=== PATIENT | female | born 1935 | race Caucasian/White ===

== ENCOUNTER 2016-12-01 14:11 | Inpatient (IN) | payer MEDICARE, MEDICAID ==
[~2016-12-01] VITALS: Ht 142.2 cm; Wt 44.5 kg
[~2016-12-01 14:11] MED LIST: /PANT40TA OR; /PROM25SU RE; /TIOT18INH INH; ACET65TA OR; ACIDTAB16 PO; ALB2.5NEB INH; ALBU17IN INH; ALBU83IN INH; ALBUTEROL INH; ALTA5CAP OR; AMLO5TAB2 PO; ANUSHCSU PR; ASPI325T OR; ATRO1OPD PO; AUGM875T27 PO; BACITAB PO; BACITAB3 PO; BACL10TA2 OR; CALC1TAB30 PO; CEPH500T PO; CIPR250T2 PO; COLA100C2 OR; COLA100C3 PO; COLA50CA3 PO; DOXY10CA PO; DOXY150C PO; DRY EYE DROPS OU; FERR140T PO; FERR32TA PO; FLAG500T OR; FLUC10TA PO; FLUO10CA8 PO; FURO20TA2 PO; GLUC500T OR; HYDR10TAB PO; HYDR1OI TOP; INCR1INH INH; IPRASOL4 INH; ISOS30TA4 PO; LASI20TA PO; LASI40TA OR; LEVA500T OR; LEVO25TA2 OR; LEVO25TA34 PO; LEVO25TA5 PO; LEVO25TABR OR; LIDO5TD TD; LIPI10TA OR; LISI-542 PO; LORA1TAB12 PO; LOTEMAX EYE OU; MAGN500T2 OR; MILKSUS OR; MILKSUS PO; MORP1SOL PO; MULTIVIT PO; NORV5TAB OR; NORV5TAB PO; OXYB5TA PO; POTA10CA PO; POTA1TAB14 PO; POTA20TA2 OR; PRED10PA PO; PRED10TA PO; PRED5TA PO; PROA1AER INH; RESTASIS EYE DROPS OU; SENO8.6T10 PO; SENO8.6T9 PO; SPIR1CAP INH; SPIR25TA2 PO; SYMB80INH INH; TORS20TA2 PO; TRAM50TA2 PO; TYLE1TAB5 PO; TYLE325T5 PO; TYLE500T78 PO; ULTR50TA PO; VANC12CA OR; VANC12CA PO; VANC750I IV; VIBR100C PO; VITA200016 PO; VITA250L PO; VITA50003 PO; VITA500046 PO; VITA500C24 PO; VITA500T3 PO; VITMTA PO; [UNRECOGNIZED DRUG - OTHER] TOP; lexapro
[2016-12-01] MEDS ORDERED: LEXA5SOL PO (14:32)
[2016-12-01] MEDS ORDERED: LEVO25TA5 PO (14:32)
[2016-12-01] MEDS ORDERED: TRAZ50TA4 PO (14:32)
[2016-12-01] MEDS ORDERED: ACETAMINOPHEN TAB 650MG DOSE (2X325MG) PO ONE (15:00)
[2016-12-01 15:41] LABS: BASO % 0.1 % (0.0-1.0); EOS % 0.2 % (0.0-3.0); LARGE UNSTAINED CELL # 0.1 K/mm3 (0.0-0.4); LARGE UNSTAINED CELL % 0.7 % (0.0-4.0); LYMPH # 0.2 K/mm3 (1.5-4.5); LYMPH % 1.4 % (24.0-44.0); MEAN CORPUSCULAR HEMOGLOBIN 33.5 pg (27.0-33.0); MEAN CORPUSCULAR HGB CONC 33.1 g/dl (32.0-36.5); MEAN CORPUSCULAR VOLUME 101.4 fl (80.0-96.0); MONO # 0.6 K/mm3 (0.0-0.8); MONO % 4.1 % (0.0-5.0); NEUTROPHILS # 13.1 K/mm3 (1.8-7.7); NEUTROPHILS % 93.4 % (36.0-66.0); RED CELL DISTRIBUTION WIDTH 14.4 % (11.5-14.5)
[2016-12-01 15:44] LABS: ALBUMIN 2.8 GM/DL (3.2-5.2); ALBUMIN/GLOBULIN RATIO 0.62 (1.00-1.93); ALKALINE PHOSPHATASE 104 U/L (45-117); ALT/SGPT 15 U/L (12-78); ANION GAP 6 MEQ/L (8-16); AST/SGOT 25 U/L (15-37); BILIRUBIN,DIRECT 0.3 MG/DL (0.0-0.2); BILIRUBIN,TOTAL 0.8 MG/DL (0.2-1.0); BLOOD UREA NITROGEN 17 MG/DL (7-18); CALCIUM LEVEL 8.9 MG/DL (8.8-10.2); CARBON DIOXIDE LEVEL 34 MEQ/L (21-32); CHLORIDE LEVEL 99 MEQ/L (98-107); CREATININE FOR GFR 1.32 MG/DL (0.55-1.02); GLUCOSE, FASTING 134 MG/DL (83-110); PLATELET COUNT, AUTOMATED 98 k/mm3 (150-450); POTASSIUM SERUM 3.2 MEQ/L (3.5-5.1); SODIUM LEVEL 139 MEQ/L (136-145); TOTAL PROTEIN 7.3 GM/DL (6.4-8.2)
--- NOTE | 2016-12-01 15:52 | REP ---
CT HEAD WITHOUT CONTRAST: HISTORY: Altered mental status. COMPARISON: 08/02/2014 Areas of decreased attenuation are present in the thalami and right basal ganglia. These represent old lacunar infarctions. Small areas of decreased attenuation are present in the cerebellum. These represent old infarctions. Areas of decreased attenuation are present in the periventricular and subcortical white matter. This represents small vessel ischemic disease. There is no intraparenchymal hemorrhage, mass or midline shift. The ventricular system and cortical sulci as well as subarachnoid space in the posterior fossa are dilated consistent with mild volume loss. There is no extracerebral collection. Mucosal thickening is present in the left sphenoid sinus. IMPRESSION: 1. 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 2. Old small bilateral cerebellar infarctions. 3. Small vessel ischemic disease. 4. Mild volume loss. Signed by Mo Dawkins MD 12/01/2016 03:56 P
--- NOTE | 2016-12-01 15:58 | REP ---
CHEST, TWO VIEWS: HISTORY: Altered mental status. COMPARISON: 06/08/2016. An increase in interstitial markings is present in the lungs consistent with chronic interstitial fibrosis. Patchy density is present in the right upper and lower lobes consistent with an infiltrate. The cardiac silhouette is enlarged. The pulmonary vasculature is prominent. IMPRESSION: 1. Right upper and lower lobe infiltrate. 2. Chronic interstitial fibrosis. 3. Cardiomegaly. Signed by Mo Dawkins MD 12/01/2016 04:01 P
[2016-12-01] MEDS ORDERED: IBUPROFEN 600 MG TAB PO ONE (16:15)
[2016-12-01] MEDS ORDERED: cefTRIAXone SOD 1 GM in D5W MINI-BAG PLUS 50 ML IV ONE (16:15)
[2016-12-01] MEDS ORDERED: POTASSIUM CHLORIDE 10 MEQ SR TABLET PO ONE (16:15)
[2016-12-01] MEDS ORDERED: AZITHROMYCIN INJ 500MG VIAL (J0456) As Ordered ONE (16:26)
[2016-12-01] MEDS ORDERED: AZITHROMYCIN INJ 500 MG, VIAL MATE ADAPTER 1 EACH in D5W 250 ML IV ONE (16:30)
[2016-12-01] MEDS ORDERED: LEXA1TAB PO (16:38)
[2016-12-01] MEDS ORDERED: NS 1,000 ML IV ONE ×2 (19:00→22:15)
[2016-12-01 19:27] LABS: FOLATE 10.1 NG/ML (>5.4); VITAMIN B12 LEVEL 720 PG/ML (247-911)
--- NOTE | 2016-12-01 20:07 | HPEPDOC ---
General Date of Admission Dec 01, 2016 at 17:59 Primary Care Physician: Jr Figueroa Collins Attending Physician: LANDON MASON Chief Complaint The patient is a 81-year-old female admitted with a reason for visit of Cap, Uti. Source: Patient, Family Exam Limitations: Physical impairment History of Present Illness Patient is a 82-year-old female resents today with altered mental status. Patient was recently discharged from hospice proximal 2 weeks ago. Patient had been on hospice for 6 months due to previous hospitalization. Patient had a aspiration during that hospitalization and was deemed unable to swallow regular food. Patient did eat while in hospice. In the last day patient has become more confused. This started last night. Patient was awake frequently throughout the nights when she usually sleeps throughout the whole nights. She would say that she sees people outside that she sees mice in her room which things weren't there. She would ask questions and forget about what she wanted to ask. This is different from her baseline and has never happened before. Also had reported a change in her muscle strength. Patient has a history of a CVA approximately 5 years ago. After that time patient has limited mobility and is unable to use left upper extremity and left lower extremity. Today patient had difficult time holding a cup in her hand and dropped her Chapstick. She has not walked since previous hospitalization or since being in hospice. She's been mostly bedridden while in hospice. Home Medications Scheduled Doxycycline Hyclate (Doxycycline) 100 Mg Cap, 100 MG PO Q12H Escitalopram Oxalate (Lexapro) 10 Mg Tab, 10 MG PO DAILY, (Reported) Levothyroxine Sodium (Synthroid) 25 Mcg Tab, 25 MCG PO DAILY, (Reported) Trazodone HCl (Trazodone HCl) 50 Mg Tab, 50 MG PO QHS, (Reported) Allergies Coded Allergies: Ciprofloxacin (Unverified Allergy, Unknown, 01/02/16) Heparin (Verified Allergy, Unknown, 05/26/16) patient has elevated heparin antibodies Baclofen (Verified Adverse Reaction, Intermediate, Extreme confusion, ) Past Medical History Medical History 1. hospice see HPI 2. COPD 3. 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 4. Chronic kidney disease 5. Chronic nephrolithiasis 6. Cholelithiasis 7. Hypertension 8. Chronic anemia 9. Chronic thrombocytopenia 10. Grade 1 diastolic heart failure 11. Vitamin D deficiency 12. Hypothyroidism 13. Dyslipidemia 14. Diabetes mellitus, diet-controlled 15. Abdominal aortic aneurysm, 3.7 cm 16. Reflux esophagitis 17. Hiatal hernia 18. Scoliosis 19. Osteoarthritis 20. Diverticulosis 21 colonic polyps 22 persistent left arm weakness status post CVA 23. Persistent stable anterior segment right upper lobes solid nodule, 1.1 cm Surgical History 1. Right hip replacements. [facility] [place]. 2. Cystoscopy 3. Left ureteral J stent's 4. Homium laser lithotripsy 5. Extracorporeal shockwave lithotripsy Social History * Smoker: former Smoker (quit smoking 20 years ago and smoked half a pack a day for roughly 30 years), quit greater than 1 year Alcohol: Denies Drugs: denies Recent Travel/Sick Contacts: Denies: Recent travel Psychosocial History: Anxiety, Depression Patient lives at home with daughter. Patient had recently been on hospice until 2 weeks ago. Review of Symptoms Constitutional: Reports: Fever (patient felt warm at home. No temperature was taken.), Denies: Chills Eyes: Denies: Vision change ENT: Denies: Head Aches, Ear Pain Skin: Reports: Bruising (bilateral arms. Has been there for some time.) Pulmonary: Reports: Dyspnea (on oxygen nasal cannula. Not at home.), Cough ( yellow sputum, productive) Cardiovascular: Denies: Chest Pain, Palpitations Gastrointestinal: Reports: Nausea, Vomiting (vomited times once today.), Denies: Abdominal Pain, Diarrhea, Constipation, Melena, Hematochezia Genitourinary: Denies: Dysuria, Frequency Hematologic: Denies: Bruising, Bleeding Excessively Musculoskeletal: Reports: Back Pain (patient has had chronic back pain that comes and goes. Patient complains of pain today in her cervical spine. Patient takes roughly 2 Tylenols a day for this.), Denies: Neck Pain Neurological: Reports: Weakness (patient has chronic weakness post CVA left side upper and lower extremity. Had some mild weakness with pecan grower and right hands today.), Other Symptoms (patient unable to walk.), Denies: Numbness Psych: Reports: Mood Normal Physical Examination General Exam: Positive: Alert, Cooperative, No Acute Distress Eye Exam: Positive: PERRLA, Conjunctiva & lids normal, EOMI, Negative: Sclera icteric ENT Exam: Positive: Atraumatic, Mucous membr. moist/pink, Pharynx Normal Neck Exam: Positive: Supple, Negative: JVD, thyromegaly Chest Exam: Positive: Diminished Heart Exam: Positive: Rate Normal, Murmurs (grade 2/6 systolic murmur, best heard over right sternal border.) Abdomen Exam: Positive: Normal bowel sounds, Soft, Negative: Tenderness, Hepatospenomegaly Extremity Exam: Positive: Normal pulses, Negative: Clubbing, Cyanosis, Edema Skin Exam: Positive: Nl turgor and temperature Neuro Exam: Positive: Normal Speech, Cranial Nerves 3-12 NL, Negative: Normal Gait (patient does not ambulate.) Psych Exam: Positive: Oriented x 3 (patient remembered her name, birthday, where she is, month and date. Patient could not remember year.) Vital Signs Vital Signs Date Time Temp Pulse Resp B/P (MAP) Pulse Ox O2 Delivery O2 Flow Rate FiO2 12/01/16 18:56 88 94 12/01/16 15:52 102.1 12/01/16 14:42 20 144/67 (92) Nasal Cannula Laboratory Data Labs 24H Laboratory Tests 2 12/01/16 15:13: White Blood Count 14.0H, Red Blood Count 3.03L, Hemoglobin 10.2L, Hematocrit 30.7L, Mean Corpuscular Volume 101.4H, Mean Corpuscular Hemoglobin 33.5H, Mean Corpuscular Hemoglobin Concent 33.1, Red Cell Distribution Width 14.4, Platelet Count 98L, Neutrophils (%) (Auto) 93.4H, Lymphocytes (%) (Auto) 1.4L, Monocytes (%) (Auto) 4.1, Eosinophils (%) (Auto) 0.2, Basophils (%) (Auto) 0.1, Neutrophils # (Auto) 13.1H, Lymphocytes # (Auto) 0.2L, Monocytes # (Auto) 0.6, Eosinophils # (Auto) 0.0, Basophils # (Auto) 0.0, Large Unclassified Cells % 0.7 , Large Unclassified Cells # 0.1, Urine Appearance TURBIDH, Urine Color YELLOW, Urine pH 6.0, Urine Specific Dorr 1.011, Urine Protein 1+H, Urine Glucose (UA ) NEGATIVE, Urine Ketones NEGATIVE, Urine Urobilinogen 0.2, Urine Bilirubin NEGATIVE, Urine Leukocyte Esterase 3+H, Urine Blood 1+H, Urine Nitrite POSITIVE , Urine WBC (Auto) TNTCH, Urine RBC (Auto) 20H, Urine Hyaline Casts (Auto) 0, Urine Bacteria (Auto) 3+H, Urine Squamous Epithelial Cells 8, Urine Amorphous Sediment SMALLH, Urine Mucus (Auto) MODERATE, Urine Sperm (Auto) , Anion Gap 6L , Glomerular Filtration Rate 41.0, Lactic Acid Level 1.3, Calcium Level 8.9, Aspartate Amino Transf (AST/SGOT) 25, Alanine Aminotransferase (ALT/SGPT) 15, Alkaline Phosphatase 104, Total Bilirubin 0.8, Direct Bilirubin 0.3H, Total Creatine Kinase 61, Creatine Kinase MB 1.0, Creatine Kinase MB Relative Index 1.63, Troponin I < 0.02, Total Protein 7.3, Albumin 2.8L, Albumin/Globulin Ratio 0.62L, Thyroid Stimulating Hormone (TSH) 0.657 CBC/BMP Laboratory Tests 12/01/16 15:13 Red Blood Count 3.03 L, Mean Corpuscular Volume 101.4 H, Mean Corpuscular Hemoglobin 33.5 H, Mean Corpuscular Hemoglobin Concent 33.1, Red Cell Distribution Width 14.4, Neutrophils (%) (Auto) 93.4 H, Lymphocytes (%) (Auto) 1.4 L, Monocytes (%) (Auto) 4.1, Eosinophils (%) (Auto) 0.2, Basophils (%) (Auto ) 0.1, Neutrophils # (Auto) 13.1 H, Lymphocytes # (Auto) 0.2 L, Monocytes # ( Auto) 0.6, Eosinophils # (Auto) 0.0, Basophils # (Auto) 0.0 Microbiology Microbiology 12/01/16 Blood Culture, Received Pending 12/01/16 Blood Culture, Received Pending 12/01/16 Urine Culture, Received Pending Problems (1) Altered mental status Problem Text: Patient was not acting herself starting last night. This has improved on exam today. Patient was orientated 3. Possible cause for this patient's altered mental status include infection from pneumonia and urinary tract infection. Patient was febrile on exam with temperature 102. Patient's white blood cell count was elevated at 14. Patient was given a dose of Tylenol to lower her temperature while in the ER. Patient does also have a history of CVA. Denies symptoms of stroke such as slurred speech, droopy face. CT of the head was performed and revealed evidence of old infarcts. She does not have any focal findings on exam. This makes CVA less likely at this time. (2) CAP (community acquired pneumonia) Problem Text: Patient has not had any hospitalizations within the last 90 days. Patient had been in hospice prior to 2 weeks ago. Patient does have a history of COPD. Patient reports having a productive cough with yellow phlegm. Patient was confused today and has a urea of 17 on labs. This has roommates 3 of the criteria for curb 65. Chest x-ray showed infiltrates and right lower and right upper lobe. Patient was given azithromycin and ceftriaxone while in the ER. Changing patient to clindamycin 300 mg 3 times a day IV and Rocephin 1 g IV daily. This is to help cover gram positives as well as anaerobes from potential aspiration pneumonia. Possible causes of this patient's pneumonia include aspiration. Patient has a history of aspirating upon last hospitalization. Ordering a speech evaluation to evaluate patient's swallowing. Patient will remain nothing by mouth until that time. Also ordering a sputum culture and stain. Patient was not wheezy on exam but will [id number] nebulizers every 4 hours when necessary for wheezing and shortness of breath. He normally is not on oxygen but is on nasal cannula while here. Patient had previously received nebulizers prior to week ago but home nurse deemed she did not need them anymore. Since patient has been in hospice for the past 6 months she currently does not have any medications for COPD. (3) Aspiration pneumonia Problem Text: Patient does have a history of aspiration. Speech evaluation has been ordered. Patient will remain nothing by mouth until this time. (4) Urinary tract infection Status: Acute Problem Text: Patient denies any symptoms of urinary tract infections such as dysuria frequency. Urinalysis did reveal leukocyte esterase 3+, white blood cell count too numerous to count, bacteria 3+. Patient did have a chronic catheter while in hospice for roughly 5 months. This was removed 2 weeks ago. Patient states she was able to urinate post removal of catheter. Patient normally voids in a diaper. Starting patient on antibiotics to cover gram-negative cause of UTI. (5) Anxiety and depression Problem Text: Patient has a history of anxiety and depression. This was mainly from being hospice. Patient was prescribed Lexapro and trazodone to help sleep while in hospice. Patient has continue this medication at home. We will be holding this medication at this time due to patient's nothing by mouth status. (6) Anemia Problem Text: Patient's hemoglobin on labs today were 10.2 with an MCV of 101.4. Patient did look to have a history of anemia. However MCV was usually lower than 100. Checking patient's B12 and folate for possible deficiency. We' ll need to supplement patient's B12 or folate if needed. (7) Hypokalemia Status: Acute Problem Text: Patient has low potassium on labs today. Potassium was 3.2. 40 [place] once the potassium was given while in the ER. Will repeat lab in the morning and monitor as needed. (8) COPD (chronic obstructive pulmonary disease) Status: Chronic Problem Text: Patient does have a history of COPD. Prescribing patient DuoNeb' s every 4 hours as needed for shortness of breath and wheezing. (9) Chronic kidney disease, stage 3 (moderate) Status: Chronic (10) Diastolic CHF, chronic Status: Chronic Problem Text: Patient had this shown on a recent echo in 2016. Echo also revealed aortic stenosis. This is consistent with patient's murmur on exam. 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 Will not be giving patient heparin for DVT prophylaxis. (12) Back pain Status: Acute Problem Text: Patient has a history of chronic back pain. Patient complained of pain today in her cervical spine. Patient took 2 Tylenol and the pain was resolved. We'll monitor patient clinically. Once patient is no longer nothing by mouth can prescribe patient Tylenol when necessary. (13) Hypothyroid Status: Chronic Problem Text: Patient has a history of hypothyroidism. Patient takes levothyroxine 25 g orally daily. We'll prescribe patient 12.5 on Synthroid IV daily. Prescribing patient IV since she is nothing by mouth at this time. Plan / VTE VTE Prophylaxis Ordered?: Yes (teds and sequentials. Patient has history of HIT.) Plan Plan Patient has a history of C. difficile. When patient is no longer nothing by mouth we'll prescribe patient probiotic. Also prescribed patient Tylenol no longer nothing by mouth for chronic back pain. Holding home medications due to patient's nothing by mouth status. Given patient IV Synthroid at this time. Advanced Directives: Do Not Resuscitate (DNR) (discussed with patient DNR and DNI status. Patient agreed and did not want anything done.), Do Not Intubate ( DNI) GME ATTESTATION GME ATTESTATION My preceptor for this patient encounter was Dr. Bautista and she was physically present in the building during the encounter and was fully available. As needed , all aspects of the patient interview, examination, medical decision making process, and medical care plan development were reviewed and approved by the preceptor. Preceptor is aware and concurs with the plan as stated in the body of this note and will attest to such by his/her cosignature. TAINA GARCIA DO Dec 01, 2016 19:44 LANDON MASON Dec 05, 2016 12:54
[2016-12-01 20:15] VITALS: BP_SYST 115; BP_SYST 136; BP_DIAS 56; BP_DIAS 74
[2016-12-01] MEDS: CLINDAMYCIN 300 MG in APPROPRIATE DILUENT 1 EA IV SCH (21:09)
[2016-12-01] MEDS: NS 1,000 ML IV SCH (21:45)
[2016-12-02] MEDS: CLINDAMYCIN 300 MG in APPROPRIATE DILUENT 1 EA IV SCH (05:00)
[2016-12-02 06:00] VITALS: BP 121/78
[2016-12-02] MEDS ORDERED: LevoFLOXacin IV 750 MG in APPROPRIATE DILUENT 1 EA IV ONE (06:00)
[2016-12-02 06:07] LABS: DIFF SLIDE NUMBER 61; MEAN CORPUSCULAR HEMOGLOBIN 33.5 pg (27.0-33.0); MEAN CORPUSCULAR HGB CONC 32.5 g/dl (32.0-36.5); RED CELL DISTRIBUTION WIDTH 14.7 % (11.5-14.5); WHITE BLOOD COUNT 8.8 K/mm3 (4.0-10.0)
[2016-12-02 06:13] LABS: CALCIUM LEVEL 8.5 MG/DL (8.8-10.2); CREATININE FOR GFR 1.42 MG/DL (0.55-1.02); GLOMERULAR FILTRATION RATE 37.7 (>32); MAGNESIUM LEVEL 1.9 MG/DL (1.8-2.4); POTASSIUM SERUM 4.1 MEQ/L (3.5-5.1)
[2016-12-02 06:15] LABS: PLATELET COUNT, AUTOMATED 68 k/mm3 (150-450)
[2016-12-02 06:32] LABS: BANDS 10 % (< 11)
[2016-12-02 06:33] LABS: ANISOCYTOSIS 1+
[2016-12-02] MEDS: AMPICILLIN SOD/SULBACTAM SOD 3 GM in D5W MINI-BAG PLUS 100 ML IV SCH ×2 (09:38→21:16)
[2016-12-02] MEDS: LEVOTHYROXINE 100 MCG (0.1MG) VIAL IV SCH (09:38)
[2016-12-02] MEDS: NS 1,000 ML IV SCH (10:31)
--- NOTE | 2016-12-02 11:20 | IPNPDOC ---
Subjective Date Seen The patient was seen on 12/02/16. Subjective Chief Complaint/HPI The patient is a 81-year-old female admitted with a reason for visit of Cap, Uti. Events since last encounter Patient reports that she is not feeling well today. Feels about the same as yesterday. Still has a cough that is productive with yellow phlegm. Has a dry mouth and is looking forward to having a drink of water and some ice cream. General: Denies: Night Sweats Constitutional: Reports: Chills, Denies: Fever Eyes: Denies: Vision change ENT: Denies: Head Aches Pulmonary: Reports: Dyspnea (on oxygen nasal cannula), Cough (productive, yellow) Cardiovascular: Denies: Chest Pain, Palpitations Gastrointestinal: Denies: Nausea, Vomiting Genitourinary: Denies: Dysuria, Frequency Neurological: Denies: Weakness, Confusion Psych: Reports: Mood Normal Objective Physical Examination General Exam: Positive: Alert, Cooperative, No Acute Distress Eye Exam: Positive: PERRLA, Conjunctiva & lids normal, EOMI, Negative: Sclera icteric ENT Exam: Positive: Atraumatic, Mucous membr. moist/pink, Pharynx Normal Neck Exam: Positive: Supple, Negative: JVD, thyromegaly Chest Exam: Positive: Rhonchi (bilaterally.) Heart Exam: Positive: Rate Normal, Other (distant heart sounds) Abdomen Exam: Positive: Normal bowel sounds, Soft, Negative: Tenderness, Hepatospenomegaly Extremity Exam: Positive: Normal pulses, Negative: Clubbing, Cyanosis, Edema Skin Exam: Positive: Nl turgor and temperature Neuro Exam: Positive: Normal Speech, Cranial Nerves 3-12 NL, Negative: Normal Gait (patient does not ambulate.) Psych Exam: Positive: Oriented x 3 (patient remembered her name, birthday, where she is, month and date. Patient could not remember year.) Assessment /Plan Plan/VTE VTE Prophylaxis Ordered?: Yes (teds and sequentials. Patient has history of HIT.) Plan (1) Altered mental status Problem Text: Patient is back to more of her baseline today, as she was on exam yesterday. No family members were present on exam today. Family will be in to discuss patient's status later. Possible cause for this patient's altered mental status include infection from pneumonia and urinary tract infection. Patient's white blood cell count lowered to 8 today. Patient has been afebrile since 10 PM last night. Patient does also have a history of CVA. Denied symptoms of stroke such as slurred speech, droopy face. CT of the head was performed and revealed evidence of old infarcts. This makes CVA less likely a cause of her AMS. (2) CAP (community acquired pneumonia) Problem Specific Plan: Monitor Clinically, Repeat Labs Problem Text: Patient is not had any hospitalizations within the last 90 days. Patient had been in hospice prior to 2 weeks ago. Patient does have a history of COPD. Patient reports having a productive cough with yellow phlegm. BUN increased to 25 today. Continue to give patient normal saline IV on patient is nothing by mouth. Patient was given azithromycin and ceftriaxone while in the ER. Discontinuing azithromycin and clindamycin IV. Switching patient to Unasyn IV every 12 hours. Possible causes of this patient's pneumonia include aspiration. Patient has a history of aspirating upon last hospitalization. Speech evaluation as been ordered. Patient will remain nothing by mouth until that time. Sputum culture and stain was ordered and results are pending. Patient has nebulizers every 4 hours when necessary for shortness of breath and wheezing. Patient did have some rales on exam today. She normally is not on oxygen but is on nasal cannula while here. Patient had previously received nebulizers prior to week ago but home nurse deemed she did not need them anymore. Since patient has been in hospice for the past 6 months she currently does not have any medications for COPD. (3) Aspiration pneumonia Problem Text: Patient does have a history of aspiration. Speech evaluation has been ordered. Patient remain nothing by mouth until this time. (4) Urinary tract infection Status: Acute Problem Text: Patient denies any symptoms of urinary tract infections such as dysuria frequency. Urinalysis in the ER did reveal leukocyte esterase 3+, white blood cell count too numerous to count, bacteria 3+. Patient did have a chronic catheter while in hospice for roughly 5 months. This was removed 2 weeks ago. Patient states she was able to urinate post removal of catheter. Patient normally voids in a diaper. This most likely is the source of her infection. Patient is already on Unasyn for pneumonia and this will cover for her urinary tract infection as well. (5) Anxiety and depression Problem Text: Patient has a history of anxiety and depression. This was mainly from being hospice. Patient was prescribed Lexapro and trazodone to help sleep while in hospice. Patient has continue this medication at home. We will be holding this medication at this time due to patient's nothing by mouth status. (6) Anemia Problem Text: Patient's hemoglobin on labs today were 8.8 with an MCV of 103. Patient did look to have a history of anemia. However MCV was usually lower than 100. B12 and folate were both normal on yesterdays labs. Reorder and monitor patient' s CBC. (7) Hypokalemia Status: Acute Problem Text: Patient was normal today. 40 mEQ of potassium was given while in the ER. Will repeat lab in the morning and monitor as needed. (8) COPD (chronic obstructive pulmonary disease) Status: Chronic Problem Text: Patient does have a history of COPD. Prescribing patient DuoNeb' s every 4 hours as needed for shortness of breath and wheezing. 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 Will not be giving patient heparin for DVT prophylaxis. (12) Back pain Status: Acute Problem Text: Patient has a history of chronic back pain. Patient complained of pain today in her cervical spine. Patient took 2 Tylenol and the pain was resolved. We'll monitor patient clinically. Once patient is no longer nothing by mouth can prescribe patient Tylenol when necessary. (13) Hypothyroid Status: Chronic Problem Text: Patient has a history of hypothyroidism. Patient takes levothyroxine 25 g orally daily. We'll prescribe patient 12.5 on Synthroid IV daily. Prescribing patient IV since she is nothing by mouth at this time. VS, I&O, 24H, Fishbone Vital Signs/I&O Vital Signs Date Time Temp Pulse Resp B/P (MAP) Pulse Ox O2 Delivery O2 Flow Rate FiO2 12/02/16 06:00 97.7 80 19 121/78 (92) 97 Nasal Cannula 3.0 I&O- Last 24 Hours up to 6 AM 12/02/16 06:00 Intake Total 50 ml Output Total 30 ml Balance 20 ml Laboratory Data 24H LABS Laboratory Tests 2 12/01/16 15:13: White Blood Count 14.0H, Red Blood Count 3.03L, Hemoglobin 10.2L, Hematocrit 30.7L, Mean Corpuscular Volume 101.4H, Mean Corpuscular Hemoglobin 33.5H, Mean Corpuscular Hemoglobin Concent 33.1, Red Cell Distribution Width 14.4, Platelet Count 98L, Neutrophils (%) (Auto) 93.4H, Lymphocytes (%) (Auto) 1.4L, Monocytes (%) (Auto) 4.1, Eosinophils (%) (Auto) 0.2, Basophils (%) (Auto) 0.1, Neutrophils # (Auto) 13.1H, Lymphocytes # (Auto) 0.2L, Monocytes # (Auto) 0.6, Eosinophils # (Auto) 0.0, Basophils # (Auto) 0.0, Large Unclassified Cells % 0.7 , Large Unclassified Cells # 0.1, Urine Appearance TURBIDH, Urine Color YELLOW, Urine pH 6.0, Urine Specific [place] 1.011, Urine Protein 1+H, Urine Glucose (UA ) NEGATIVE, Urine Ketones NEGATIVE, Urine Urobilinogen 0.2, Urine Bilirubin NEGATIVE, Urine Leukocyte Esterase 3+H, Urine Blood 1+H, Urine Nitrite POSITIVE , Urine WBC (Auto) TNTCH, Urine RBC (Auto) 20H, Urine Hyaline Casts (Auto) 0, Urine Bacteria (Auto) 3+H, Urine Squamous Epithelial Cells 8, Urine Amorphous Sediment SMALLH, Urine Mucus (Auto) MODERATE, Urine Sperm (Auto) , Anion Gap 6L , Glomerular Filtration Rate 41.0, Lactic Acid Level 1.3, Calcium Level 8.9, Aspartate Amino Transf (AST/SGOT) 25, Alanine Aminotransferase (ALT/SGPT) 15, Alkaline Phosphatase 104, Total Bilirubin 0.8, Direct Bilirubin 0.3H, Total Creatine Kinase 61, Creatine Kinase MB 1.0, Creatine Kinase MB Relative Index 1.63, Troponin I < 0.02, Total Protein 7.3, Albumin 2.8L, Albumin/Globulin Ratio 0.62L, Vitamin B12 Level 720, Folate 10.1, Thyroid Stimulating Hormone ( TSH) 0.657 12/02/16 05:27: Anion Gap 7L, Glomerular Filtration Rate 37.7, Calcium Level 8.5L, Neutrophils 82H, Band Neutrophils 10, Lymphocytes (Manual) 4L, Monocytes (Manual) 3, Atypical Lymphocytes 1, Platelet Estimate MARKED DECREASE, Anisocytosis 1+, Macrocytosis 2+, Blood Urea Nitrogen 25H, Creatinine 1.42H, Sodium Level 144, Potassium Level 4.1#, Chloride Level 109H, Carbon Dioxide Level 28, Magnesium Level 1.9 CBC/BMP Laboratory Tests 12/01/16 15:13 Red Blood Count 3.03 L, Mean Corpuscular Volume 101.4 H, Mean Corpuscular Hemoglobin 33.5 H, Mean Corpuscular Hemoglobin Concent 33.1, Red Cell Distribution Width 14.4, Neutrophils (%) (Auto) 93.4 H, Lymphocytes (%) (Auto) 1.4 L, Monocytes (%) (Auto) 4.1, Eosinophils (%) (Auto) 0.2, Basophils (%) (Auto ) 0.1, Neutrophils # (Auto) 13.1 H, Lymphocytes # (Auto) 0.2 L, Monocytes # ( Auto) 0.6, Eosinophils # (Auto) 0.0, Basophils # (Auto) 0.0 12/02/16 05:27 Red Blood Count 2.64 L, Mean Corpuscular Volume 103.0 H, Mean Corpuscular Hemoglobin 33.5 H, Mean Corpuscular Hemoglobin Concent 32.5, Red Cell Distribution Width 14.7 H, Calcium Level 8.5 L Microbiology Microbiology 12/01/16 Blood Culture - Preliminary, Resulted 12/01/16 Blood Culture - Preliminary, Resulted Strep Pneumoniae Antigen 12/01/16 Gram Stain - Final, Resulted 12/01/16 Sputum Culture, Resulted Pending 12/01/16 Urine Culture, Received Pending GME ATTESTATION GME ATTESTATION My preceptor for this patient encounter was Dr. Rebolledo and he was physically present in the building during the encounter and was fully available. As needed , all aspects of the patient interview, examination, medical decision making process, and medical care plan development were reviewed and approved by the preceptor. Preceptor is aware and concurs with the plan as stated in the body of this note and will attest to such by his/her cosignature. TAINA GARCIA DO Dec 02, 2016 10:12
[2016-12-02 14:00] VITALS: BP 125/65
[2016-12-02] MEDS ORDERED: cefTRIAXone SOD 1 GM in D5W MINI-BAG PLUS 50 ML IV SCH (17:00)
[2016-12-02 21:35] VITALS: BP 145/90
[2016-12-02 22:00] VITALS: BP 162/88
[2016-12-03] MEDS: ALBUTEROL SULFATE 2.5 MG/0.5 ML INH NEB SOLN NEB PRN ×3 (00:13→20:00)
[2016-12-03 02:26] VITALS: BP 156/68
[2016-12-03 05:56] VITALS: BP 160/72
[2016-12-03 05:57] LABS: EOS % 0.1 % (0.0-3.0); LARGE UNSTAINED CELL # 0.2 K/mm3 (0.0-0.4); LARGE UNSTAINED CELL % 1.7 % (0.0-4.0); LYMPH # 0.4 K/mm3 (1.5-4.5); LYMPH % 2.8 % (24.0-44.0); MEAN CORPUSCULAR HEMOGLOBIN 33.2 pg (27.0-33.0); MEAN CORPUSCULAR HGB CONC 31.8 g/dl (32.0-36.5); MEAN CORPUSCULAR VOLUME 104.4 fl (80.0-96.0); MONO # 0.4 K/mm3 (0.0-0.8); MONO % 4.4 % (0.0-5.0); NEUTROPHILS # 8.4 K/mm3 (1.8-7.7); NEUTROPHILS % 90.8 % (36.0-66.0); RED CELL DISTRIBUTION WIDTH 14.9 % (11.5-14.5); WHITE BLOOD COUNT 9.2 K/mm3 (4.0-10.0)
[2016-12-03 05:59] LABS: PLATELET COUNT, AUTOMATED 90 k/mm3 (150-450)
[2016-12-03 06:00] VITALS: BP 160/78
[2016-12-03] MEDS ORDERED: LevoFLOXacin IV 500 MG in APPROPRIATE DILUENT 1 EA IV SCH (06:00)
[2016-12-03 06:07] LABS: CALCIUM LEVEL 9.6 MG/DL (8.8-10.2); CREATININE FOR GFR 1.32 MG/DL (0.55-1.02); MAGNESIUM LEVEL 2.1 MG/DL (1.8-2.4); POTASSIUM SERUM 3.3 MEQ/L (3.5-5.1)
--- NOTE | 2016-12-03 07:11 | ECGEPIP ---
Stationary ECG Study [facility] - ED Test Date: 2016-12-01 Pat Name: SYD DICKINSON Department: Room: [place] [address] Gender: F Vice President Process: tomas : 1935 Requested By: CARINE Rodriguez Order Number: [id number] Reading MD: Yulisa Rosado Measurements Intervals [place] Rate: 110 P: NE: 0 QRS: -11 QRSD: 85 T: 52 QT: 347 QTc: 471 Interpretive Statements SUPRAVENTRICULAR TACHYCARDIA NONSPECIFIC ST & T-WAVE ABNORMALITY ABNORMAL RHYTHM ECG INCREASED RATE 05/28/16 Electronically Signed On 12-03-2016 7:10:34 EDT by Yulisa Rosado
[2016-12-03] MEDS ORDERED: POTASSIUM CHLORIDE 10 MEQ SR TABLET PO ONE (07:15)
[2016-12-03] MEDS ORDERED: D5W 1,000 ML IV SCH (07:30)
[2016-12-03] MEDS: LEVOTHYROXINE 100 MCG (0.1MG) VIAL IV SCH (08:48)
[2016-12-03] MEDS: AMPICILLIN SOD/SULBACTAM SOD 3 GM in D5W MINI-BAG PLUS 100 ML IV SCH ×2 (08:48→21:07)
[2016-12-03 09:55] VITALS: BP 160/90
[2016-12-03] MEDS: LACTOBACILLUS ACIDOPHILUS CAP (BACID) PO SCH ×2 (11:31→21:07)
[2016-12-03] MEDS: ESCITALOPRAM OXALATE 10 MG TAB (LEXAPRO) PO SCH (11:32)
[2016-12-03] MEDS ORDERED: ACETAMINOPHEN TAB 650MG DOSE (2X325MG) PO PRN (13:15)
[2016-12-03 14:00] VITALS: BP 125/84
[2016-12-03] MEDS: traZODone 50 MG TAB PO SCH (21:08)
[2016-12-03 22:00] VITALS: BP 125/77
[2016-12-04 02:00] VITALS: BP 150/80
[2016-12-04 05:52] LABS: EOS % 0.2 % (0.0-3.0); LARGE UNSTAINED CELL # 0.1 K/mm3 (0.0-0.4); LARGE UNSTAINED CELL % 1.6 % (0.0-4.0); LYMPH # 0.4 K/mm3 (1.5-4.5); LYMPH % 5.1 % (24.0-44.0); MEAN CORPUSCULAR HEMOGLOBIN 33.9 pg (27.0-33.0); MEAN CORPUSCULAR HGB CONC 32.6 g/dl (32.0-36.5); MEAN CORPUSCULAR VOLUME 103.9 fl (80.0-96.0); MONO # 0.3 K/mm3 (0.0-0.8); MONO % 5.4 % (0.0-5.0); NEUTROPHILS # 5.4 K/mm3 (1.8-7.7); NEUTROPHILS % 87.7 % (36.0-66.0); RED CELL DISTRIBUTION WIDTH 15.1 % (11.5-14.5); WHITE BLOOD COUNT 6.1 K/mm3 (4.0-10.0)
[2016-12-04 05:56] LABS: PLATELET COUNT, AUTOMATED 81 k/mm3 (150-450)
[2016-12-04 05:58] LABS: CALCIUM LEVEL 9.6 MG/DL (8.8-10.2); CREATININE FOR GFR 1.31 MG/DL (0.55-1.02); GLOMERULAR FILTRATION RATE 41.4 (>32); POTASSIUM SERUM 3.3 MEQ/L (3.5-5.1)
[2016-12-04 06:00] VITALS: BP 141/67
[2016-12-04] MEDS ORDERED: POTASSIUM CHLORIDE 10 MEQ SR TABLET PO ONE (07:30)
[2016-12-04] MEDS ORDERED: D5W 1,000 ML IV SCH (07:30)
[2016-12-04] MEDS: AMPICILLIN SOD/SULBACTAM SOD 3 GM in D5W MINI-BAG PLUS 100 ML IV SCH ×2 (09:19→20:56)
[2016-12-04] MEDS: LEVOTHYROXINE 100 MCG (0.1MG) VIAL IV SCH (09:19)
[2016-12-04] MEDS: LACTOBACILLUS ACIDOPHILUS CAP (BACID) PO SCH ×2 (09:19→20:57)
[2016-12-04] MEDS: ESCITALOPRAM OXALATE 10 MG TAB (LEXAPRO) PO SCH (09:20)
--- NOTE | 2016-12-04 10:40 | IPNPDOC ---
Subjective Date Seen The patient was seen on 12/04/16. Subjective Chief Complaint/HPI The patient is a 81-year-old female admitted with a reason for visit of Cap, Uti. General: Denies: Chills, Night Sweats Constitutional: Denies: Chills, Fever Eyes: Denies: Pain, Vision change ENT: Denies: Head Aches, Ear Pain Skin: Denies: Rash, Lesions Pulmonary: Reports: Cough, Denies: Dyspnea Cardiovascular: Denies: Chest Pain, Palpitations Gastrointestinal: Denies: Nausea, Vomiting Hematologic: Denies: Bruising, Bleeding Excessively Objective Physical Examination General Exam: Positive: Alert, Cooperative, No Acute Distress Eye Exam: Positive: PERRLA, Conjunctiva & lids normal, EOMI, Negative: Sclera icteric ENT Exam: Positive: Atraumatic, Mucous membr. moist/pink, Pharynx Normal Neck Exam: Positive: Supple, Negative: JVD, thyromegaly Chest Exam: Positive: Rhonchi (bilaterally.), Negative: Rales Heart Exam: Positive: Rate Normal, Normal S1, Normal S2 Abdomen Exam: Positive: Normal bowel sounds, Soft, Negative: Tenderness, Hepatospenomegaly Extremity Exam: Positive: Normal pulses, Negative: Clubbing, Cyanosis, Edema Skin Exam: Positive: Nl turgor and temperature Neuro Exam: Positive: Normal Speech Assessment /Plan Plan/VTE VTE Prophylaxis Ordered?: Yes (teds and sequentials. Patient has history of HIT.) Plan Streptococcus Pneumoniae (community acquired pneumonia) Sputum Culture positive for Streptococcus Pneumoniae Patient on Unasyn WBC has normalized, and the patient has remained afebrile Respiratory status back to baseline We will cont to monitor the patient's respiratory status Streptococcus Pneumoniae Bacteremia 2/2 CAP Two Blood Cultures positive from 12/01 Started on IV Unasyn, Repeat Blood Cultures negative x 2 on 12/03 Patient has remained afebrile, with a normal WBC Will complete a 14 day course of Abx Dysphagia The patient was eating a regular diet while on hospice without any apparent issues A speech therapy evaluation here was ordered given the possibility of aspiration -and a pured diet, with nectar thick liquids was recommended However, after having a discussion with the patient and her 2 daughters at the bedside the patient and the family stated that they would like the patient to have a regular diet as she does not want to eat a modified diet. I did explain to the patient and her family the risk of aspiration involved with this and they did verbalize understanding of this. However, given the decreased by mouth intake here and the patient's insistence on eating a regular diet we will order that here. Hypernatremia likely 2/2 Decreased PO Intake Serum Na improving 150-->147 Encouraged PO intake D5W IVF hydration ordered Altered Mental Status likely 2/2 CAP, resolved CT of the head was performed and revealed evidence of old infarcts. Patients mentation has returned back to baseline Possible Urinary tract infection Urinalysis revealed leukocyte esterase 3+, white blood cell count too numerous to count, bacteria 3+. Urine Culture positive for Klebsiella Already being treated with Unasyn Anxiety and depression Cont Lexapro and Trazadone COPD (chronic obstructive pulmonary disease, stable Cont Albuterol prn Chronic kidney disease, stage 3, stable Serum Cr at baseline Hypothyroid Cont Levothyroxine Anemia, stable Chronic Thrombocytopenia, stable Platelets stable DVT prophylaxis SCDs/TEDs (No AC 2/2 Thrombocytopenia) Dispo--Anticipate D/C in the next 24/48 hrs pending clinical improvement. PFS on board to help with transitioning the patient home VS, I&O, 24H, [place] Vital Signs/I&O Vital Signs Date Time Temp Pulse Resp B/P (MAP) Pulse Ox O2 Delivery O2 Flow Rate FiO2 12/04/16 06:00 98.6 98 20 141/67 (91) 97 Nasal Cannula 3.0 I&O- Last 24 Hours up to 6 AM 12/04/16 06:00 Intake Total 1500 ml Output Total 0 ml Balance 1500 ml Laboratory Data 24H LABS Laboratory Tests 2 12/04/16 05:24: White Blood Count 6.1, Red Blood Count 2.64L, Hemoglobin 8.9L, Hematocrit 27.4L , Mean Corpuscular Volume 103.9H, Mean Corpuscular Hemoglobin 33.9H, Mean Corpuscular Hemoglobin Concent 32.6, Red Cell Distribution Width 15.1H, Platelet Count 81L, Neutrophils (%) (Auto) 87.7H, Lymphocytes (%) (Auto) 5.1L, Monocytes (%) (Auto) 5.4H, Eosinophils (%) (Auto) 0.2, Basophils (%) (Auto) 0.0 , Neutrophils # (Auto) 5.4, Lymphocytes # (Auto) 0.4L, Monocytes # (Auto) 0.3, Eosinophils # (Auto) 0.0, Basophils # (Auto) 0.0, Large Unclassified Cells % 1.6 , Large Unclassified Cells # 0.1, Anion Gap 7L, Glomerular Filtration Rate 41.4 , Blood Urea Nitrogen 26H, Creatinine 1.31H, Sodium Level 147H, Potassium Level 3.3L, Chloride Level 110H, Carbon Dioxide Level 30, Calcium Level 9.6, Magnesium Level 2.0 CBC/BMP Laboratory Tests 12/04/16 05:24 Red Blood Count 2.64 L, Mean Corpuscular Volume 103.9 H, Mean Corpuscular Hemoglobin 33.9 H, Mean Corpuscular Hemoglobin Concent 32.6, Red Cell Distribution Width 15.1 H, Neutrophils (%) (Auto) 87.7 H, Lymphocytes (%) (Auto ) 5.1 L, Monocytes (%) (Auto) 5.4 H, Eosinophils (%) (Auto) 0.2, Basophils (%) ( Auto) 0.0, Neutrophils # (Auto) 5.4, Lymphocytes # (Auto) 0.4 L, Monocytes # ( Auto) 0.3, Eosinophils # (Auto) 0.0, Basophils # (Auto) 0.0, Calcium Level 9.6 Microbiology Microbiology 12/03/16 Blood Culture - Preliminary, Resulted No growth after 24 hours . All specim... 12/03/16 Blood Culture - Preliminary, Resulted No growth after 24 hours . All specim... 12/01/16 Blood Culture - Final, Complete Streptococcus Pneumoniae 12/01/16 Blood Culture - Final, Complete Strep Pneumoniae Antigen Streptococcus Pneumoniae 12/03/16 Gram Stain - Final, Resulted 12/03/16 Sputum Culture, Resulted Pending 12/01/16 Gram Stain - Final, Complete 12/01/16 Sputum Culture - Final, Complete Streptococcus Pneumoniae 12/01/16 Urine Culture - Final, Complete Klebsiella Pneumoniae ANDRE LOVELL MD Dec 04, 2016 10:40
[2016-12-04 14:00] VITALS: BP 140/76
[2016-12-04] MEDS: traZODone 50 MG TAB PO SCH (20:57)
[2016-12-04 22:00] VITALS: BP 139/83
[2016-12-05] MEDS: ALBUTEROL SULFATE 2.5 MG/0.5 ML INH NEB SOLN NEB PRN (03:02)
[2016-12-05 06:00] VITALS: BP 122/58
[2016-12-05 06:06] LABS: BASO % 0.1 % (0.0-1.0); EOS # 0.1 K/mm3 (0.0-0.50); EOS % 2.1 % (0.0-3.0); LARGE UNSTAINED CELL # 0.1 K/mm3 (0.0-0.4); LARGE UNSTAINED CELL % 1.6 % (0.0-4.0); LYMPH # 0.6 K/mm3 (1.5-4.5); LYMPH % 12.5 % (24.0-44.0); MEAN CORPUSCULAR HEMOGLOBIN 33.4 pg (27.0-33.0); MEAN CORPUSCULAR HGB CONC 32.3 g/dl (32.0-36.5); MEAN CORPUSCULAR VOLUME 103.5 fl (80.0-96.0); MONO # 0.2 K/mm3 (0.0-0.8); MONO % 6.1 % (0.0-5.0); NEUTROPHILS # 3.1 K/mm3 (1.8-7.7); NEUTROPHILS % 77.7 % (36.0-66.0); RED CELL DISTRIBUTION WIDTH 14.8 % (11.5-14.5)
[2016-12-05 06:14] LABS: PLATELET COUNT, AUTOMATED 59 k/mm3 (150-450)
[2016-12-05 06:21] LABS: CALCIUM LEVEL 8.8 MG/DL (8.8-10.2); CREATININE FOR GFR 1.35 MG/DL (0.55-1.02); MAGNESIUM LEVEL 1.6 MG/DL (1.8-2.4)
[2016-12-05 06:35] LABS: POTASSIUM SERUM 2.8 MEQ/L (3.5-5.1)
[2016-12-05] MEDS ORDERED: POTASSIUM CHLORIDE 10 MEQ SR TABLET As Ordered ONE (06:54)
[2016-12-05] MEDS ORDERED: POTASSIUM CHLORIDE 10 MEQ SR TABLET PO ONE ×3 (07:00→12:00)
--- NOTE | 2016-12-05 07:14 | IPNPDOC ---
Subjective Date Seen The patient was seen on 12/03/16. Subjective Chief Complaint/HPI The patient is a 81-year-old female admitted with a reason for visit of Cap, Uti. Events since last encounter Patient expressed desire to be at home. Is upset with being in the hospital. Discussed with her why she is here in the importance of staying. She has been eating well with her thickened fluids. Did not have anymore episodes of loose stools from yesterday afternoon. Overall feels about the same. General: Denies: Chills, Night Sweats Constitutional: Denies: Chills, Fever Eyes: Denies: Vision change ENT: Denies: Head Aches Skin: Denies: Rash, Lesions Pulmonary: Reports: Dyspnea (patient on oxygen 3 L nasal cannula), Denies: Cough Cardiovascular: Denies: Chest Pain, Palpitations Gastrointestinal: Reports: Other Symptoms (patient is also loose stools but has this chronically at home.), Denies: Nausea, Vomiting Genitourinary: Denies: Dysuria, Frequency Musculoskeletal: Denies: Back Pain Psych: Reports: Mood Normal Objective Physical Examination General Exam: Positive: Alert, Cooperative, No Acute Distress Eye Exam: Positive: PERRLA, Conjunctiva & lids normal, EOMI, Negative: Sclera icteric ENT Exam: Positive: Atraumatic, Mucous membr. moist/pink, Pharynx Normal Neck Exam: Positive: Supple, Negative: JVD, thyromegaly Chest Exam: Positive: Rhonchi (bilaterally.) Heart Exam: Positive: Rate Normal, Murmurs (systolic murmur 2 out of 6 best heard over left sternal border.), Other (distant heart sounds) Abdomen Exam: Positive: Normal bowel sounds, Soft, Negative: Tenderness, Hepatospenomegaly Extremity Exam: Positive: Normal pulses, Negative: Clubbing, Cyanosis, Edema Skin Exam: Positive: Nl turgor and temperature Neuro Exam: Positive: Normal Speech Assessment /Plan Problems (1) Altered mental status Problem Text: Patient has been at baseline. This has improved on exam today. Possible cause for this patient's altered mental status include infection from pneumonia and urinary tract infection. Patient's white blood cell count was elevated at 9. Patient is been afebrile 24 hours. Patient does also have a history of CVA. Denies symptoms of stroke such as slurred speech, droopy face. CT of the head was performed 12/01/2016 and revealed evidence of old infarcts. This makes CVA less likely at this time. (2) CAP (community acquired pneumonia) Problem Text: Patient has not had any hospitalizations within the last 90 days. Patient had been in hospice prior to 2 weeks ago. Patient does have a history of COPD. Patient reports having a productive cough with yellow phlegm. Patient was confused today and has a urea of 17 on labs. This has roommates 3 of the criteria for curb 65. Chest x-ray showed infiltrates and right lower and right upper lobe. Patient was given azithromycin and ceftriaxone while in the ER. Patient was changed to clindamycin 300 mg 3 times a day IV and Rocephin 1 g IV daily. Switch patient to Unasyn continuing this today. Possible causes of this patient's pneumonia include aspiration. Patient has a history of aspirating upon last hospitalization. Ordering a speech evaluation to evaluate patient's swallowing. Patient will remain nothing by mouth until that time. Levaquin will be beneficial to cover gram negatives from a potential aspiration. Also ordering a sputum culture and stain. Patient was not wheezy on exam but will [id number] nebulizers every 4 hours when necessary for wheezing and shortness of breath. He normally is not on oxygen but is on nasal cannula while here. Patient had previously received nebulizers prior to week ago but home nurse deemed she did not need them anymore. Since patient has been in hospice for the past 6 months she currently does not have any medications for COPD. continue patient on nebulizers as needed. Initial blood cultures came back positive for strep pneumo. Repeating blood cultures today. (3) Aspiration pneumonia Problem Text: Speech pathology assessed patient. Change patient's diet to meet recommendations for thickened liquids. (4) Urinary tract infection Status: Acute Problem Text: Patient denies any symptoms of urinary tract infections such as dysuria frequency. Urinalysis did reveal leukocyte esterase 3+, white blood cell count too numerous to count, bacteria 3+. Patient did have a chronic catheter while in hospice for roughly 5 months. This was removed 2 weeks ago. Patient states she was able to urinate post removal of catheter. Patient normally voids in a diaper. Starting patient on antibiotics to cover gram-negative cause of UTI. Urine culture came back positive for Klebsiella. This was sensitive to patient' s Unasyn. We'll continue on this today. (5) Anxiety and depression Problem Text: Patient has a history of anxiety and depression. This was mainly from being hospice. Patient was prescribed Lexapro and trazodone to help sleep while in hospice. Patient has continue this medication at home. Restarted patient back on her home medications today. (6) Anemia Problem Text: Patient had low hemoglobin upon admission. Patient did look to have a history of anemia. Continue to monitor patient's hemoglobin and recheck labs. (7) Hypokalemia Status: Acute Problem Text: Patient has low potassium on labs today. Potassium was 3.3. Another 40 mEq of potassium was given today. Will recheck in the morning. (8) COPD (chronic obstructive pulmonary disease) Status: Chronic Problem Text: Patient does have a history of COPD. Prescribing patient DuoNeb' s every 4 hours as needed for shortness of breath and wheezing. (9) Chronic kidney disease, stage 3 (moderate) Status: Chronic (10) Diastolic CHF, chronic Status: Chronic Problem Text: Patient had this shown on a recent echo in 2016. Echo also revealed aortic stenosis. This is consistent with patient's murmur on exam. 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 Will not be giving patient heparin for DVT prophylaxis. Patient also has thrombocytopenia which is chronic. (12) Back pain Status: Acute Problem Text: Patient has a history of chronic back pain. Patient complained of pain in her cervical spine on admission. Patient took 2 Tylenol and the pain was resolved. We'll monitor patient clinically. Patient is no longer nothing by mouth and starting patient on Tylenol 650 every 6 hours when necessary for pain. (13) Hypothyroid Status: Chronic Problem Text: Patient has a history of hypothyroidism. Patient takes levothyroxine 25 g orally daily. We'll prescribe patient 12.5 on Synthroid IV daily. Prescribing patient IV since she is nothing by mouth at this time. Plan/VTE VTE Prophylaxis Ordered?: Yes (teds and sequentials. Patient has history of HIT.) Plan Advance Directives: DNR VS, I&O, 24H, Fishbone Vital Signs/I&O Vital Signs Date Time Temp Pulse Resp B/P (MAP) Pulse Ox O2 Delivery O2 Flow Rate FiO2 12/03/16 09:55 98.4 92 13 160/90 (113) 95 Nasal Cannula 3.0 I&O- Last 24 Hours up to 6 AM 12/03/16 05:59 Intake Total 940 ml Output Total 0 ml Balance 940 ml Laboratory Data 24H LABS Laboratory Tests 2 12/03/16 05:43: White Blood Count 9.2, Red Blood Count 2.77L, Hemoglobin 9.2L, Hematocrit 28.9L , Mean Corpuscular Volume 104.4H, Mean Corpuscular Hemoglobin 33.2H, Mean Corpuscular Hemoglobin Concent 31.8L, Red Cell Distribution Width 14.9H, Platelet Count 90L, Neutrophils (%) (Auto) 90.8H, Lymphocytes (%) (Auto) 2.8L, Monocytes (%) (Auto) 4.4, Eosinophils (%) (Auto) 0.1, Basophils (%) (Auto) 0.0, Neutrophils # (Auto) 8.4H, Lymphocytes # (Auto) 0.4L, Monocytes # (Auto) 0.4, Eosinophils # (Auto) 0.0, Basophils # (Auto) 0.0, Large Unclassified Cells % 1.7 , Large Unclassified Cells # 0.2, Anion Gap 5L, Glomerular Filtration Rate 41.0 , Blood Urea Nitrogen 26H, Creatinine 1.32H, Sodium Level 150H, Potassium Level 3.3L, Chloride Level 113H, Carbon Dioxide Level 32, Calcium Level 9.6, Magnesium Level 2.1 CBC/BMP Laboratory Tests 12/03/16 05:43 Red Blood Count 2.77 L, Mean Corpuscular Volume 104.4 H, Mean Corpuscular Hemoglobin 33.2 H, Mean Corpuscular Hemoglobin Concent 31.8 L, Red Cell Distribution Width 14.9 H, Neutrophils (%) (Auto) 90.8 H, Lymphocytes (%) (Auto ) 2.8 L, Monocytes (%) (Auto) 4.4, Eosinophils (%) (Auto) 0.1, Basophils (%) ( Auto) 0.0, Neutrophils # (Auto) 8.4 H, Lymphocytes # (Auto) 0.4 L, Monocytes # ( Auto) 0.4, Eosinophils # (Auto) 0.0, Basophils # (Auto) 0.0, Calcium Level 9.6 Microbiology Microbiology 12/03/16 Blood Culture, Received Pending 12/03/16 Blood Culture, Received Pending 12/01/16 Blood Culture - Preliminary, Resulted Streptococcus Pneumoniae 12/01/16 Blood Culture - Preliminary, Resulted Strep Pneumoniae Antigen Streptococcus Pneumoniae 12/01/16 Gram Stain - Final, Resulted 12/01/16 Sputum Culture, Resulted Pending 12/01/16 Urine Culture - Final, Complete Klebsiella Pneumoniae GME ATTESTATION GME ATTESTATION My preceptor for this patient encounter was Dr. Rebolledo and he was physically present in the building during the encounter and was fully available. As needed , all aspects of the patient interview, examination, medical decision making process, and medical care plan development were reviewed and approved by the preceptor. Preceptor is aware and concurs with the plan as stated in the body of this note and will attest to such by his/her cosignature. TAINA GARCIA DO Dec 03, 2016 13:05
[2016-12-05] MEDS ORDERED: MAG SULF 1GM/100ML (MAG RUN) 1 GM in APPROPRIATE DILUENT 1 EA IV ONE (07:15)
[2016-12-05] MEDS ORDERED: KCL 10MEQ IN 100ML SWI (KRUN) 10 MEQ in APPROPRIATE DILUENT 1 EA IV SCH ×2 (08:00)
[2016-12-05] MEDS: LACTOBACILLUS ACIDOPHILUS CAP (BACID) PO SCH (08:32)
[2016-12-05] MEDS: ESCITALOPRAM OXALATE 10 MG TAB (LEXAPRO) PO SCH (08:32)
[2016-12-05] MEDS: LEVOTHYROXINE 100 MCG (0.1MG) VIAL IV SCH (08:33)
[2016-12-05] MEDS: AMPICILLIN SOD/SULBACTAM SOD 3 GM in D5W MINI-BAG PLUS 100 ML IV SCH (09:56)
[2016-12-05] MEDS ORDERED: DOXY-278 PO ×2 (09:58→13:13)
--- NOTE | 2016-12-05 11:43 | DS.PDOC ---
Discharge Summary General Date of Admission Dec 01, 2016 at 17:59 Date of Discharge 12/05/16 Primary Care Physician: Jr Figueroa Collins Attending Physician: ANDRE LOVELL MD Discharge Summary PROCEDURES PERFORMED DURING STAY: None. ADMITTING DIAGNOSES: 1. Altered mental status. 2. Community-acquired pneumonia. 3. Urinary tract infection DISCHARGE DIAGNOSES: 1. Acquired pneumonia. 2. History of aspiration pneumonia. 3. Urinary tract infection. COMPLICATIONS/CHIEF COMPLAINT: Cap, Uti. HISTORY OF PRESENT ILLNESS: Patient is an 82-year-old female who presented to the ER on 12/01/2016 with a chief complaint of altered mental status. Family was present with patient at that time. They both reported the patient seemed more confused during the night. Started the night before presenting to the ER. Patient normally sleeps the whole night but this time patient was up frequently. She was stated that she sees things that were not there outside and describes seeing "mice" in her room, when they weren't there. In addition to some altered mental status patient also had some weakness with her right upper extremity. Patient had a history of CVA and has chronic weakness in her left upper and left lower extremity. However patient was having difficult time with a couple in her right hand as well as holding her Chapstick. This concerned her family and they brought her to the ER. Patient reported having a cough with some yellow phlegm at home. Unsure how long this has been going on for. Patient does have a history of COPD and had been previously on nebulizers but this had been stopped recently per her home health nurse. Patient did not complain of any urinary tract symptoms such as dysuria or frequency. Patient was febrile upon presentation to the ER. While in the ER patient had received some Tylenol to help with her fever. Patient also had started receiving antibiotics. Patient received a dose of IV ceftriaxone and a dose of IVC azithromycin. Patient's white blood cell count was 14 with a potassium 3.2. Patient also received some potassium. Patient's lactic acid 1.3. On chest x-ray was revealed the patient had an upper and lower lobe infiltrate. Head CT did not show any new changes but showed evidence of old infarcts.On exam patient did have decreased breath sounds bilaterally. Urinalysis revealed bacteria as well as white blood cell count too many to count. HOSPITAL COURSE: While in the hospital patient was treated with antibiotics for her pneumonia and UTI. Patient had received 2 doses of clindamycin. The antibiotic was then switched to Unasyn. Patient received a total of 4 days worth of Unasyn IV twice a day. Patient's workup included a sputum culture, blood culture, urine culture. Initial blood cultures came back positive for strep pneumo as well as her sputum culture. Urine culture was positive for Klebsiella. The Klebsiella was sensitive to Unasyn. Patient then had a repeat blood cultures on Monday, December 03 and this came back negative. Patient has been afebrile for 48 hours. White blood cell count decreased to normal. Patient has a history of aspiration on previous admission. Patient was initially nothing by mouth on admission Speech therapy team the patient should have thickened liquids and this was done on hospital. Upon discharge patient will have diet as tolerated. Once patient was on nothing by mouth her home medications were continued. Patient received fluids on the hospital. DISCHARGE MEDICATIONS: Please see below. ALLERGIES: Please see below. PHYSICAL EXAMINATION ON DISCHARGE: VITAL SIGNS: Please see below. GENERAL: Patient is alert. Comfortable and cooperative. No acute distress. HEENT: Extraocular muscles intact. No evidence of trauma. No rhinorrhea. NECK: No thyromegaly. No enlarged lymph nodes. CARDIOVASCULAR EXAMINATION: Grade 2/6 systolic murmur best heard at right sternal border. RESPIRATORY EXAMINATION: Diminished breath sounds heard bilaterally. ABDOMINAL EXAMINATION: Spinal sounds heard auscultation. No pain to palpation. No organomegaly palpated. EXTREMITIES: No lower extremity edema. Radial pulses 2 out of 4 bilaterally. SKIN: Old bruises noted upper extremities. Bilaterally. NEUROLOGICAL EXAMINATION: Muscle strength in right leg and arm 5 out of 5. Patient has chronic muscle weakness in left upper and lower extremity. PSYCHIATRIC EXAMINATION: No anxiety or depression. LABORATORY DATA: Please see below. IMAGING: Head CT 12/01/16 showed an old bilateral thalamic and right basal ganglia lacunar infarctions, Old small bilateral cerebellar infarctions, Small vessel ischemic disease, and Mild volume loss. Chest x-ray on 12/01/2016 showed a Right upper and lower lobe infiltrate, Chronic interstitial fibrosis, and Cardiomegaly. PROGNOSIS: Stable ACTIVITY: As tolerated. DIET: As tolerated. DISCHARGE PLAN: Home DISPOSITION: Patient is a 81-year-old female with past medical history of recent graduation of hospice, COPD, chronic kidney disease, hypertension, chronic thrombocytopenia, and history of CVA presented to the ER with altered mental status. Patient is currently at her baseline has been throughout the course of this admission. Patient's muscles strength in her right upper extremity has been 5 out of 5. Patient does have chronic left extremity weakness in upper and lower. Patient is unable to ambulate. Patient has received 4 days of Unasyn antibiotic and will be discharged on 10 more days of doxycycline for a total of 14 days of antibiotic. She has been afebrile for the past 48 hours. DISCHARGE INSTRUCTIONS: 1. Patient is follow-up with PCP in one week. 2. Patient should return to the ER if symptoms worsen or return. 3. Take all medications and antibiotics as prescribed. DISCHARGE CONDITION: Stable. TIME SPENT ON DISCHARGE: Greater than 30 minutes. Vital Signs/I&Os Vital Signs Date Time Temp Pulse Resp B/P (MAP) Pulse Ox O2 Delivery O2 Flow Rate FiO2 12/05/16 06:00 99.1 85 20 122/58 (79) 93 Nasal Cannula 2.0 I&O- Last 24 Hours up to 6 AM 12/05/16 06:00 Intake Total 2140 ml Balance 2140 ml Laboratory Data Labs 24H Laboratory Tests 2 12/05/16 05:33: White Blood Count 4.0, Red Blood Count 2.39L, Hemoglobin 8.0L, Hematocrit 24.8L , Mean Corpuscular Volume 103.5H, Mean Corpuscular Hemoglobin 33.4H, Mean Corpuscular Hemoglobin Concent 32.3, Red Cell Distribution Width 14.8H, Platelet Count 59L, Neutrophils (%) (Auto) 77.7H, Lymphocytes (%) (Auto) 12.5L, Monocytes (%) (Auto) 6.1H, Eosinophils (%) (Auto) 2.1, Basophils (%) (Auto) 0.1 , Neutrophils # (Auto) 3.1, Lymphocytes # (Auto) 0.6L, Monocytes # (Auto) 0.2, Eosinophils # (Auto) 0.1, Basophils # (Auto) 0.0, Large Unclassified Cells % 1.6 , Large Unclassified Cells # 0.1, Anion Gap 4L, Glomerular Filtration Rate 40.0 , Blood Urea Nitrogen 22H, Creatinine 1.35H, Sodium Level 142, Potassium Level 2.8*L, Chloride Level 106, Carbon Dioxide Level 32, Calcium Level 8.8, Magnesium Level 1.6L CBC/BMP Laboratory Tests 12/05/16 05:33 Red Blood Count 2.39 L, Mean Corpuscular Volume 103.5 H, Mean Corpuscular Hemoglobin 33.4 H, Mean Corpuscular Hemoglobin Concent 32.3, Red Cell Distribution Width 14.8 H, Neutrophils (%) (Auto) 77.7 H, Lymphocytes (%) (Auto ) 12.5 L, Monocytes (%) (Auto) 6.1 H, Eosinophils (%) (Auto) 2.1, Basophils (%) (Auto) 0.1, Neutrophils # (Auto) 3.1, Lymphocytes # (Auto) 0.6 L, Monocytes # ( Auto) 0.2, Eosinophils # (Auto) 0.1, Basophils # (Auto) 0.0, Calcium Level 8.8 Microbiology Microbiology 12/03/16 Blood Culture - Preliminary, Resulted No Growth after 48 hours. All Specime... 12/03/16 Blood Culture - Preliminary, Resulted No Growth after 48 hours. All Specime... 12/01/16 Blood Culture - Final, Complete Streptococcus Pneumoniae 12/01/16 Blood Culture - Final, Complete Strep Pneumoniae Antigen Streptococcus Pneumoniae 12/03/16 Gram Stain - Final, Resulted 12/03/16 Sputum Culture - Preliminary, Resulted Yeast Like Organism 12/01/16 Gram Stain - Final, Complete 12/01/16 Sputum Culture - Final, Complete Streptococcus Pneumoniae 12/01/16 Urine Culture - Final, Complete Klebsiella Pneumoniae Discharge Medications Scheduled Doxycycline Hyclate (Doxycycline) 100 Mg Cap, 100 MG PO Q12H Escitalopram Oxalate (Lexapro) 10 Mg Tab, 10 MG PO DAILY, (Reported) Levothyroxine Sodium (Synthroid) 25 Mcg Tab, 25 MCG PO DAILY, (Reported) Trazodone HCl (Trazodone HCl) 50 Mg Tab, 50 MG PO QHS, (Reported) Allergies Coded Allergies: Ciprofloxacin (Unverified Allergy, Unknown, 01/02/16) Heparin (Verified Allergy, Unknown, 05/26/16) patient has elevated heparin antibodies Baclofen (Verified Adverse Reaction, Intermediate, Extreme confusion, ) GME ATTESTATION GME ATTESTATION My preceptor for this patient encounter was Dr. Lovell and he was physically present in the building during the encounter and was fully available. As needed , all aspects of the patient interview, examination, medical decision making process, and medical care plan development were reviewed and approved by the preceptor. Preceptor is aware and concurs with the plan as stated in the body of this note and will attest to such by his/her cosignature. TAINA GARCIA DO Dec 05, 2016 11:21
== END 2016-12-05 15:17 | disposition home or self-care (01) | DRG 178 ==
LOC: M ED 16:07 → M ED INP 17:59 → M MSPAV 20:16
PROVIDERS: ADMIT Hospitalist; ATTEND Internal Medicine
DX: J69.0 Pneumonitis due to inhalation of food and vomit (principal); N39.0 Urinary tract infection, site not specified; I50.32 Chronic diastolic (congestive) heart failure; I69.354 Hemiplegia and hemiparesis following cerebral infarction affecting left non-dominant side; E87.0 Hyperosmolality and hypernatremia; J44.9 Chronic obstructive pulmonary disease, unspecified; Z66 Do not resuscitate; N18.3 Chronic kidney disease, stage 3 (moderate); B96.1 Klebsiella pneumoniae [K. pneumoniae] as the cause of diseases classified elsewhere; R41.82 Altered mental status, unspecified; M54.9 Dorsalgia, unspecified; B95.3 Streptococcus pneumoniae as the cause of diseases classified elsewhere; F41.9 Anxiety disorder, unspecified; R13.10 Dysphagia, unspecified; F32.9 Major depressive disorder, single episode, unspecified; I11.0 Hypertensive heart disease with heart failure; E03.9 Hypothyroidism, unspecified; E78.5 Hyperlipidemia, unspecified; E11.9 Type 2 diabetes mellitus without complications; Z96.0 Presence of urogenital implants; Z96.643 Presence of artificial hip joint, bilateral; Z87.891 Personal history of nicotine dependence; Z88.1 Allergy status to other antibiotic agents; Z88.8 Allergy status to other drugs, medicaments and biological substances

== ENCOUNTER → 2017-06-09 | Outpatient (REF) | payer MEDICARE, MEDICAID ==
[~2017-06-09] MED LIST changes: -ACIDTAB16 PO; +ACIDTAB7 PO; +ALBU0.63 INH; -AUGM875T27 PO; +AUGM875T28 PO; -BACITAB3 PO; +BACL10TA2 PO; -COLA100C3 PO; +COLA100C5 PO; +DOXY-278 PO; +DOXY100C PO; +DOXY100T2 PO; -DOXY10CA PO; +LEXA1TAB PO; +LEXA1TAB2 PO; +LEXA5SOL PO; -OXYB5TA PO; +OXYB5TAB10 PO; -PROA1AER INH; +PROAAER10 INH; +SCOP1DIS TD; +TRAZ50TA11 PO; -ULTR50TA PO; +ULTR50TA8 PO; +VITA1CAP40 PO; -VITA50003 PO
== END ==
LOC: M LAB REF 13:07
PROVIDERS: ATTEND Nurse Practitioner Family
DX: R21 Rash and other nonspecific skin eruption (principal)

== ENCOUNTER 2017-06-14 09:52 | Inpatient (IN) | payer MEDICARE, MEDICAID ==
[~2017-06-14] VITALS: Ht 142.2 cm; Wt 44.0 kg
[~2017-06-14 09:52] MED LIST changes: -ALBU0.63 INH; -BACL10TA2 PO; -DOXY100C PO; -LEXA1TAB2 PO; -SCOP1DIS TD
[2017-06-14] MEDS ORDERED: BACL10TA2 PO (10:42)
[2017-06-14 10:53] LABS: VENOUS BASE EXCESS 2.6 (-2.0-2.0); VENOUS O2 SATURATION 97.5 % (60.0-80.0); VENOUS PARTIAL PRESSURE CO2 45.3 mmHg (38.0-50.0); VENOUS PARTIAL PRESSURE O2 100.3 mmHg (30.0-50.0); VENOUS STANDARD HCO3 26.8 MEQ/L; VENOUS TOTAL CO2 29.1 MEQ/L (24.0-28.0)
[2017-06-14 10:55] LABS: BASO % 0.3 % (0.0-1.0); EOS # 0.1 10^3/uL (0.0-0.50); EOS % 1.2 % (0.0-3.0); IMMATURE GRANULOCYTE % 0.5 % (0-0); LYMPH # 0.6 10^3/uL (1.5-4.5); LYMPH % 9.3 % (24.0-44.0); MEAN CORPUSCULAR HEMOGLOBIN 28.7 pg (27.0-33.0); MEAN CORPUSCULAR HGB CONC 31.3 g/dl (32.0-36.5); MEAN CORPUSCULAR VOLUME 91.8 fl (80.0-96.0); MONO # 0.5 10^3/uL (0.0-0.8); MONO % 8.2 % (0.0-5.0); NEUTROPHILS # 4.8 10^3/uL (1.8-7.7); NEUTROPHILS % 80.5 % (36.0-66.0); RED CELL DISTRIBUTION WIDTH 15.3 % (11.5-14.5); WHITE BLOOD COUNT 5.9 10^3/uL (4.0-10.0)
[2017-06-14 11:06] LABS: ANION GAP 6 MEQ/L (8-16); BLOOD UREA NITROGEN 25 MG/DL (7-18); CALCIUM LEVEL 8.4 MG/DL (8.8-10.2); CARBON DIOXIDE LEVEL 29 MEQ/L (21-32); CHLORIDE LEVEL 105 MEQ/L (98-107); GLOMERULAR FILTRATION RATE 38.3 (>32); GLUCOSE, FASTING 143 MG/DL (83-110); PLATELET COUNT, AUTOMATED 87 10^3/uL (150-450); POTASSIUM SERUM 3.3 MEQ/L (3.5-5.1); SODIUM LEVEL 140 MEQ/L (136-145)
[2017-06-14 11:11] LABS: IMMATURE PLATELET FRACTION % 4.2 % (0.0-9.6); PLATELET F 82
[2017-06-14 11:59] LABS: MUCUS, URINE RFX SMALL (NEGATIVE); SQUAM EPITHELIAL CELL UR AURFX 2 /HPF (0-6); YEAST LIKE CELL URINE AUTO RFX SMALL
[2017-06-14 12:00] LABS: MICROSCOPIC INDICATED? RFX YES (NO)
--- NOTE | 2017-06-14 12:31 | REP ---
Portable chest, 11:37 a.m., single AP view, patient sitting: Comparison 12/01/2016. The patient is significantly rotated. The previous right upper lobe and right lower lobe infiltrates have resolved. There is chronic interstitial coarsening compatible with chronic lung disease. Cardiac size is normal. Impression: Study is limited because of marked patient rotation. No acute infiltrates are identified. The previous right lung infiltrates have resolved. Signed by Hasmukh Crowe MD 06/14/2017 12:22 P
[2017-06-14] MEDS ORDERED: CEFTRIAXONE SOD 1 GM in APPROPRIATE DILUENT 1 EA IV ONE (13:00)
[2017-06-14] MEDS ORDERED: ONDANSETRON 4MG/2ML VIAL (J2405) IV PRN (13:30)
[2017-06-14] MEDS ORDERED: POTASSIUM CHLORIDE 10 MEQ SR TABLET PO ONE (13:30)
[2017-06-14] MEDS ORDERED: ALBU0.63 INH (14:16)
[2017-06-14] MEDS ORDERED: DOXY100C PO (14:16)
[2017-06-14] MEDS ORDERED: LEXA1TAB2 PO (14:16)
[2017-06-14] MEDS ORDERED: SCOP1DIS TD (14:16)
[2017-06-14] MEDS ORDERED: POTA10CA PO (14:17)
[2017-06-14 14:20] VITALS: BP 132/60
[2017-06-14] MEDS ORDERED: VANCOMYCIN HCL 1,000 MG, VIAL MATE ADAPTER 1 EACH in D5W 250 ML IV ONE (15:00)
[2017-06-14] MEDS ORDERED: ALBUTEROL SULFATE 2.5 MG/0.5 ML INH NEB SOLN INH SCH (16:00)
--- NOTE | 2017-06-14 16:35 | HPE ---
DATE OF ADMISSION: 06/14/2017 Primary care physician is Brent Figueroa MD. Inpatient hospitalist attending will be Dr. Melvin Rebolledo. CHIEF COMPLAINT: Confusion. HISTORY OF PRESENTING ILLNESS: History is obtained from the patient's daughter, who is present at the bedside. Patient is pleasantly confused, unable to provide any history. This is an 81-year-old female who was brought in by the patient's family due to 1 day history of increasing confusion. Patient was noted by caregiver yesterday to be confused, talking to herself, seeing things on the wall and has been chewing on her dentures. Patient looks likes she has forgotten how to drink and has been chewing her medications. According to the truck guard at night, she slept okay. She was talking to herself most of the night, but appeared to be rested this morning. The truck guard this morning was concerned and call the daughter, who was at work, that the patient had been chewing on her dentures and has been chewing her medications instead of swallowing them, and appeared to be confused about how to drink liquids. Patient was recently seen by a family nurse practitioner on Monday, due to complaints of congestion that she has had for about a week, with some cough productive of white-yellow sputum, with no fevers or chills at home. At times, this did appear to be blood-tinged. She was given antibiotic, which was picked up by the daughter from [facility] and had taken 4 days of it at home , 5th day would be today, when she presented to the emergency room. On Monday, they received a call from the family nurse practitioner indicating that the groin culture grew out 4 bacteria; 2 of which will be covered by the previous antibiotic, but she had been prescribed Levaquin, which has not been filled and not been given to the patient according to the daughter. She was brought in today because of worsening confusion. She remained afebrile with no white count. Microbiology from 06/09/2017 on the right groin grew out Escherichia (E) coli, Staphylococcus (Staph) aureus, Enterococcus (E) faecalis, Streptococcus parasanguinis, and Klebsiella oxytoca. In the emergency room (ER), evaluation included a urinalysis (UA) which showed pyuria and bacteruria. Due to patient's confusion and abnormal urinalysis, patient is being admitted for altered mental status secondary to urinary tract infection (UTI). According to the patient's daughter, she has been on diapers for several years and often times picks on her stool and reaches into her groin area with possible contamination and source of her UTI. Hospitalist service was called for admission for acute encephalopathy secondary to urinary tract infection from chronic diaper use and poor toileting. PAST MEDICAL HISTORY: 1. Patient has previously been in hospice October 2016 and has been removed from that. 2. Chronic obstructive pulmonary disease (COPD). 3. 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 4. Chronic kidney disease, stage III. 5. Chronic nephrolithiasis and cholelithiasis. 6. Hypertension. 7. Anemia of chronic disease. 8. Chronic thrombocytopenia. 9. Grade 1 diastolic congestive heart failure. 10. Vitamin D deficiency. 11. Hypothyroidism. 12. Dyslipidemia. 13. Type 2 diabetes, diet controlled. 14. 3.7 cm abdominal aortic aneurysm. 15. Reflux esophagitis, 16. Hiatal hernia. 17. Scoliosis. 18. Osteoarthritis. 19. Diverticulosis. 20. Colonic polyps. 21. Left arm weakness status post cerebrovascular accident (CVA). 22. Right upper lobe solid nodule in the anterior segment 1.1 cm. PAST SURGICAL HISTORY: 1. Right hip replacement, [facility], [place]. 2. Cystoscopy. 3. Left ureteral J stent. 4. Holmium laser lithotripsy, extracorporeal shock wave lithotripsy. SOCIAL HISTORY: Former smoking quit 20 years ago. Smoked half a pack a day for 30 years. Quit in 2016. Denies alcohol or drug use. Lives at home with daughter, with caregiver 23/01. Patient was in hospice in October 2016 and has been taken away from there, and has been taken away by the daughter. HOME MEDICATIONS: - albuterol 0.63 inhaled three times a day - doxycycline 100 twice a day - Lexapro 20 daily - levothyroxine 25 mcg daily - potassium 10 mEq twice a day - scopolamine patch - trazodone 50 mg nightly REVIEW OF SYSTEMS: Could not be obtained as the patient is confused. PHYSICAL EXAMINATION: Vital signs: Temperature 99.2. Pulse 80. Respiratory rate 20. Blood pressure 148/69. 95% on 2 liters nasal cannula. Generally, the patient is pleasantly confused, awake, alert, oriented to person only, disoriented to time and place. Pupils round, reactive. Extraocular muscles are intact. Moist mucous membranes. Patient has dentures. No jugular venous distention. No thyromegaly. No cervical lymphadenopathy. Anicteric sclerae. Lungs: Diminished, prolonged expiration. No rales. Heart: S1, S2. Sinus rhythm. Abdomen is soft, nontender, nondistended. Extremities: No cyanosis or clubbing. Skin: Patient has some erythema in the groin right and left bilaterally. There is no edema. LABORATORY DATA: White count 5.9, hemoglobin 8, hematocrit 25, platelet count of 87. Sodium 140, potassium 3.3, chloride 105, bicarbonate 29, BUN 25, creatinine 1.4. Glucose 143. Lactic acid 1.6. Calcium 8.4. Total CK 63, MB fraction 1.6. Troponin less than 0.02. TSH of 2.49. Patient's baseline creatinine is 1.35. 06/09/2017 groin culture: Staph aureus, E coli, Enterococcus faecalis, Streptococcus parasanguinis, and Klebsiella oxytoca. Previous urine culture 12/01/2016 with Klebsiella pneumoniae sensitive to ceftriaxone. ASSESSMENT AND PLAN: This is an 81-year-old female brought in by family due to acute onset of confusion yesterday, when the patient was found to be talking to herself, seeing things on the wall, chewing her dentures and chewing her medications. She has a known history of chronic obstructive pulmonary disease, diastolic heart failure, Clostridium difficile, chronic kidney disease stage III , chronic nephrolithiasis, urinary tract infection with Klebsiella, hypertension, chronic anemia and thrombocytopenia, vitamin D deficiency, hypothyroidism, dyslipidemia, diet controlled diabetes, 3.7 cm abdominal aortic aneurysm, reflux esophagitis, hiatal hernia, osteoarthritis, scoliosis, diverticulosis, colonic polyps, history of CVA with left arm weakness and a stable right upper lobe pulmonary nodule. Patient will be admitted as inpatient, been assigned to Dr. Melvin Rebolledo, hospitalist attending, on 06/14/2017, at 7 p.m., due to the following acute issues. 1. Acute encephalopathy secondary to urinary tract infection. Patient has been known to contaminate herself with fecal material and to scratch her groin according to the daughter at the bedside and is at high risk of developing urinary tract infection. At this time, patient does have pyuria as well as bacteruria, and despite being unable to provide complaints of dysuria, urgency or frequency, patient's mental state has been altered over the past 24 hours. Therefore, patient will be treated for a urinary tract infection with intravenous ceftriaxone. Previous culture of December 2016 grew out Klebsiella that is sensitive to ceftriaxone. Await urine culture and tailor antibiotics accordingly. 2. Groin erythema. I am not convinced that this is truly cellulolytic. At this time, there appears to be polymicrobial findings on the groin biopsy performed on 06/09/2017 with Escherichia (E) coli, Staphylococcus aureus, Enterococcus faecalis, Streptococcus, and Klebsiella. Patient will be given one dose of vancomycin and will subsequently be discontinued due to being high risk for recurrence Clostridium difficile colitis. Check clinically in the morning to see if we need to continue the patient's vancomycin if it were to worsen and appears more cellulolytic. At this time, I will discontinue the vancomycin after one dose and if patient develops a fever, worsening white count may consider getting Dr. Adali Meyers, infectious disease specialist, to monitor patient's clinical progress. 3. Chronic obstructive pulmonary disease. Appears to be compensated. 4. Chronic hypoxic respiratory failure. On 2 liters oxygen at baseline. 5. Chronic kidney disease. At baseline creatinine. Avoid nephrotoxins. Renally dose all medications. 6. Hypokalemia. Patient's potassium has been repleted. 7. Chronic anemia and thrombocytopenia. No acute indication for red blood cell (RBC) transfusion. At this time, no signs of active bleeding. Patient Will most likely not benefit from proceeding with bone marrow biopsy due to advanced age and bedridden status. However, this will need to be discussed with the patient's daughter if she would like this to be evaluated with hematology/oncology consult and bone marrow biopsy, rule out dysplastic syndrome. 8. Hypertension. Patient may be placed on low dose Norvasc with holding parameters for systolic pressure less than 130 with 2.5 mg twice a day. 9. Hypothyroidism. Resume home dose of levothyroxine. 10. Grade 1 diastolic congestive heart failure. Appears to be compensated. 11. Type 2 diabetes. Diet controlled. Patient may resume no added salt diet. 12. History of abdominal aortic aneurysm, 3.7 cm. Patient's blood pressure is controlled at this time. 13. Reflux esophagitis and hiatal hernia. Due to prior history of C difficile, patient has not been placed on a proton pump inhibitor (PPI). 14. History of Clostridium (C) difficile. While on antibiotics, the patient will be placed on Bacid with meals. 15. History of cerebrovascular accident with persistent left arm weakness. Patient has 24/7 care at home, which would not hinder discharge once medically stable. 16. Pulmonary nodule, 1.1 cm, right upper lobe. Unchanged from previous studies. No further workup. 17. Deep venous thrombosis (DVT) prophylaxis with compression stockings and renally dosed Lovenox. DISPOSITION: Patient's daughter is able to provide 24/7 care at home. Once medically stable, patient's family would like her to be discharged home. [facility] HEALTH SYSTEMGeoff
[2017-06-14] MEDS: LACTOBACILLUS ACIDOPHILUS CAP (BACID) PO SCH (17:49)
[2017-06-14] MEDS ORDERED: ENOXAPARIN 30 MG/0.3 ML SYR (J1650) SC SCH (18:00)
[2017-06-14] MEDS: ALBUTEROL SULFATE 2.5 MG/0.5 ML INH NEB SOLN INH SCH (21:01)
[2017-06-14] MEDS: POTASSIUM CHLORIDE 10 MEQ SR TABLET PO SCH (21:20)
[2017-06-14] MEDS: traZODone 50 MG TAB PO SCH (21:23)
[2017-06-14 22:00] VITALS: BP 122/58
--- NOTE | 2017-06-15 04:37 | ECGEPIP ---
Stationary ECG Study [facility] - ED Test Date: 2017-06-14 Pat Name: SYD DICKINSON Department: Room: - Gender: F Varnish Thinner: tomas : 1935 Requested By: Cecil Hurtado Order Number: [id number] Reading MD: Cecil Mendoza Measurements Intervals Kelly Rate: 74 P: 2 MT: 151 QRS: -3 QRSD: 92 T: 38 QT: 308 QTc: 343 Interpretive Statements SINUS RHYTHM NONSPECIFIC T-WAVE ABNORMALITY SIMILAR TO 12/01/16 Electronically Signed On 06-15-2017 4:37:26 EST by Cecil Mendoza
[2017-06-15] MEDS: LEVOTHYROXINE 25MCG TABLET (0.025MG) PO SCH (05:47)
[2017-06-15 06:00] VITALS: BP 147/65
[2017-06-15 06:09] LABS: BASO % 0.5 % (0.0-1.0); EOS # 0.1 10^3/uL (0.0-0.50); EOS % 1.1 % (0.0-3.0); IMMATURE GRANULOCYTE % 0.3 % (0-0); LYMPH # 0.5 10^3/uL (1.5-4.5); MEAN CORPUSCULAR HEMOGLOBIN 28.8 pg (27.0-33.0); MEAN CORPUSCULAR VOLUME 92.9 fl (80.0-96.0); MONO # 0.9 10^3/uL (0.0-0.8); MONO % 13.6 % (0.0-5.0); NEUTROPHILS % 76.5 % (36.0-66.0); RED CELL DISTRIBUTION WIDTH 15.6 % (11.5-14.5); WHITE BLOOD COUNT 6.5 10^3/uL (4.0-10.0)
[2017-06-15 06:16] LABS: ADD MANUAL DIFFER NO; DIFF SLIDE NUMBER 68; PLATELET COUNT, AUTOMATED 88 10^3/uL (150-450)
[2017-06-15 06:36] LABS: CALCIUM LEVEL 8.3 MG/DL (8.8-10.2); CREATININE FOR GFR 1.47 MG/DL (0.55-1.02); GLOMERULAR FILTRATION RATE 36.2 (>32); POTASSIUM SERUM 4.3 MEQ/L (3.5-5.1)
[2017-06-15] MEDS: ALBUTEROL SULFATE 2.5 MG/0.5 ML INH NEB SOLN INH SCH ×2 (08:04→20:06)
[2017-06-15] MEDS ORDERED: SCOPOLAMINE 1MG TRANSDERMAL PATCH TD SCH (09:00)
[2017-06-15] MEDS: ESCITALOPRAM OXALATE 10 MG TAB (LEXAPRO) PO SCH (09:13)
[2017-06-15] MEDS: POTASSIUM CHLORIDE 10 MEQ SR TABLET PO SCH ×2 (09:14→19:58)
[2017-06-15] MEDS: LACTOBACILLUS ACIDOPHILUS CAP (BACID) PO SCH ×2 (09:14→19:29)
--- NOTE | 2017-06-15 12:19 | IPNPDOC ---
Subjective Date Seen The patient was seen on 06/15/17. Subjective Chief Complaint/HPI The patient is a 81-year-old female admitted with a reason for visit of Altered Mental Status. Events since last encounter Patient seen and examined at the bedside. States that she is feeling much better this morning. Notes that she is ready to go back home and doesn't remember being confused yesterday. Objective Physical Examination General Exam: Positive: Alert, Cooperative, No Acute Distress ENT Exam: Positive: Atraumatic, Mucous membr. moist/pink Neck Exam: Negative: JVD Heart Exam: Positive: Rate Normal, Normal S1, Normal S2 Abdomen Exam: Positive: Soft, Negative: Tenderness Extremity Exam: Negative: Tenderness, Swelling Psych Exam: Positive: Oriented x 3 Assessment /Plan Plan/VTE VTE Prophylaxis Ordered?: Yes Plan Altered Mental Status 2/2 Urinary Tract Infection UA notable for +LE, WBC On Rocephin Urine Culture pending Mentation improved and back to baseline this AM following IV Abx treatment Will await Urine Culture and switch the patient to PO Abx therafter Anxiety and depression Cont Lexapro and Trazadone COPD (chronic obstructive pulmonary disease, stable Cont Albuterol prn Chronic kidney disease, stage 3, stable Serum Cr at baseline Hx of CVA Hypothyroid Cont Levothyroxine Hx of Thrombocytopenia, Anemia, stable Chronic Thrombocytopenia, stable Platelets stable DVT prophylaxis SCDs/TEDs (No AC 2/2 Thrombocytopenia) Dispo--Anticipate D/C in the next 24/48 hrs with 24/7 home care pending revelation of urine culture, continued clinical improvement. VS, I&O, 24H, Fishbone Vital Signs/I&O Vital Signs Date Time Temp Pulse Resp B/P (MAP) Pulse Ox O2 Delivery O2 Flow Rate FiO2 06/15/17 09:15 78 147/65 06/15/17 06:00 98.3 18 98 Room Air 06/14/17 20:30 2.0 Laboratory Data 24H LABS Laboratory Tests 2 06/15/17 05:52: Immature Granulocyte % (Auto) 0.3H, White Blood Count 6.5, Red Blood Count 2.81L , Hemoglobin 8.1L, Hematocrit 26.1L, Mean Corpuscular Volume 92.9, Mean Corpuscular Hemoglobin 28.8, Mean Corpuscular Hemoglobin Concent 31.0L, Red Cell Distribution Width 15.6H, Platelet Count 88L, Neutrophils (%) (Auto) 76.5H , Lymphocytes (%) (Auto) 8.0L, Monocytes (%) (Auto) 13.6H, Eosinophils (%) (Auto ) 1.1, Basophils (%) (Auto) 0.5, Neutrophils # (Auto) 5.0, Lymphocytes # (Auto) 0.5L, Monocytes # (Auto) 0.9H, Eosinophils # (Auto) 0.1, Basophils # (Auto) 0.0 , Immature Granulocyte # (Auto) 0.0, Nucleated Red Blood Cells % (auto) 0.0, Anion Gap 6L, Glomerular Filtration Rate 36.2, Blood Urea Nitrogen 27H, Creatinine 1.47H, Sodium Level 144, Potassium Level 4.3#, Chloride Level 111H, Carbon Dioxide Level 27, Calcium Level 8.3L CBC/BMP Laboratory Tests 06/15/17 05:52 Red Blood Count 2.81 L, Mean Corpuscular Volume 92.9, Mean Corpuscular Hemoglobin 28.8, Mean Corpuscular Hemoglobin Concent 31.0 L, Red Cell Distribution Width 15.6 H, Neutrophils (%) (Auto) 76.5 H, Lymphocytes (%) (Auto ) 8.0 L, Monocytes (%) (Auto) 13.6 H, Eosinophils (%) (Auto) 1.1, Basophils (%) (Auto) 0.5, Neutrophils # (Auto) 5.0, Lymphocytes # (Auto) 0.5 L, Monocytes # ( Auto) 0.9 H, Eosinophils # (Auto) 0.1, Basophils # (Auto) 0.0, Calcium Level 8.3 L Microbiology Microbiology 06/14/17 Blood Culture - Preliminary, Resulted No growth after 24 hours . All specim... 06/14/17 Blood Culture - Preliminary, Resulted No growth after 24 hours . All specim... 06/14/17 Urine Culture, Received Pending ANDRE LOVELL MD Jun 15, 2017 12:19
[2017-06-15] MEDS: CEFTRIAXONE SOD 2 GM in APPROPRIATE DILUENT 1 EA IV SCH (13:15)
[2017-06-15 14:00] VITALS: BP 142/70
[2017-06-15] MEDS ORDERED: VANCOMYCIN HCL 500 MG in D5W MINI-BAG PLUS 100 ML IV SCH (15:00)
[2017-06-15] MEDS: traZODone 50 MG TAB PO SCH (19:58)
[2017-06-15 22:00] VITALS: BP 137/67
[2017-06-16] MEDS: LEVOTHYROXINE 25MCG TABLET (0.025MG) PO SCH (05:35)
[2017-06-16 06:11] LABS: BASO % 0.7 % (0.0-1.0); EOS # 0.3 10^3/uL (0.0-0.50); EOS % 4.8 % (0.0-3.0); IMMATURE GRANULOCYTE % 0.4 % (0-0); LYMPH # 0.8 10^3/uL (1.5-4.5); LYMPH % 15.3 % (24.0-44.0); MEAN CORPUSCULAR HEMOGLOBIN 29.1 pg (27.0-33.0); MEAN CORPUSCULAR HGB CONC 31.2 g/dl (32.0-36.5); MEAN CORPUSCULAR VOLUME 93.3 fl (80.0-96.0); MONO % 18.8 % (0.0-5.0); NEUTROPHILS # 3.3 10^3/uL (1.8-7.7); PLATELET COUNT, AUTOMATED 106 10^3/uL (150-450); RED CELL DISTRIBUTION WIDTH 15.7 % (11.5-14.5); WHITE BLOOD COUNT 5.4 10^3/uL (4.0-10.0)
[2017-06-16 06:38] LABS: CALCIUM LEVEL 8.8 MG/DL (8.8-10.2); CREATININE FOR GFR 1.41 MG/DL (0.55-1.02); POTASSIUM SERUM 4.2 MEQ/L (3.5-5.1)
[2017-06-16 08:00] VITALS: BP 139/63
[2017-06-16] MEDS: ALBUTEROL SULFATE 2.5 MG/0.5 ML INH NEB SOLN INH SCH ×2 (08:43→20:05)
[2017-06-16] MEDS: LACTOBACILLUS ACIDOPHILUS CAP (BACID) PO SCH ×2 (10:16→17:20)
[2017-06-16] MEDS: ESCITALOPRAM OXALATE 10 MG TAB (LEXAPRO) PO SCH (10:16)
[2017-06-16] MEDS: POTASSIUM CHLORIDE 10 MEQ SR TABLET PO SCH ×2 (10:17→20:22)
[2017-06-16] MEDS: ACETAMINOPHEN TAB 650MG DOSE (2X325MG) PO PRN ×2 (10:19→17:20)
--- NOTE | 2017-06-16 10:38 | IPNPDOC ---
Subjective Date Seen The patient was seen on 06/16/17. Subjective Chief Complaint/HPI The patient is a 81-year-old female admitted with a reason for visit of Altered Mental Status. Events since last encounter Patient seen and examined at the bedside. States that she is feeling better this morning. Objective Physical Examination General Exam: Positive: Alert, Cooperative, No Acute Distress ENT Exam: Positive: Atraumatic, Mucous membr. moist/pink Neck Exam: Negative: JVD Heart Exam: Positive: Rate Normal, Normal S1, Normal S2 Abdomen Exam: Positive: Soft, Negative: Tenderness Extremity Exam: Negative: Tenderness, Swelling Psych Exam: Positive: Oriented x 3 Assessment /Plan Plan/VTE VTE Prophylaxis Ordered?: Yes Plan Altered Mental Status 2/2 Urinary Tract Infection UA notable for +LE, WBC On Rocephin Urine Culture pending Mentation improved and back to baseline this following IV Abx treatment Will await Urine Culture and switch the patient to PO Abx therafter Anxiety and depression Cont Lexapro and Trazadone COPD (chronic obstructive pulmonary disease, stable Cont Albuterol prn Chronic kidney disease, stage 3, stable Serum Cr at baseline Hx of CVA Hypothyroid Cont Levothyroxine Hx of Thrombocytopenia, Anemia, stable Chronic Thrombocytopenia, stable Platelets stable DVT prophylaxis SCDs/TEDs (No AC 2/2 Thrombocytopenia) Dispo--Anticipate D/C in the next 24/48 hrs with 24/7 home care pending revelation of urine culture, continued clinical improvement. VS, I&O, [facility]/I&O Vital Signs Date Time Temp Pulse Resp B/P (MAP) Pulse Ox O2 Delivery O2 Flow Rate FiO2 06/16/17 10:17 83 140/56 06/16/17 08:00 99.0 18 97 06/15/17 22:00 Room Air 06/15/17 18:45 2.0 Laboratory Data 24H LABS Laboratory Tests 2 06/16/17 05:40: Immature Granulocyte % (Auto) 0.4H, White Blood Count 5.4, Red Blood Count 2.82L , Hemoglobin 8.2L, Hematocrit 26.3L, Mean Corpuscular Volume 93.3, Mean Corpuscular Hemoglobin 29.1, Mean Corpuscular Hemoglobin Concent 31.2L, Red Cell Distribution Width 15.7H, Platelet Count 106L, Neutrophils (%) (Auto) 60.0 , Lymphocytes (%) (Auto) 15.3L, Monocytes (%) (Auto) 18.8H, Eosinophils (%) ( Auto) 4.8H, Basophils (%) (Auto) 0.7, Neutrophils # (Auto) 3.3, Lymphocytes # ( Auto) 0.8L, Monocytes # (Auto) 1.0H, Eosinophils # (Auto) 0.3, Basophils # (Auto ) 0.0, Immature Granulocyte # (Auto) 0.0, Nucleated Red Blood Cells % (auto) 0.0 , Anion Gap 6L, Glomerular Filtration Rate 38.0, Blood Urea Nitrogen 25H, Creatinine 1.41H, Sodium Level 143, Potassium Level 4.2, Chloride Level 108H, Carbon Dioxide Level 29, Calcium Level 8.8 CBC/BMP Laboratory Tests 06/16/17 05:40 Red Blood Count 2.82 L, Mean Corpuscular Volume 93.3, Mean Corpuscular Hemoglobin 29.1, Mean Corpuscular Hemoglobin Concent 31.2 L, Red Cell Distribution Width 15.7 H, Neutrophils (%) (Auto) 60.0, Lymphocytes (%) (Auto) 15.3 L, Monocytes (%) (Auto) 18.8 H, Eosinophils (%) (Auto) 4.8 H, Basophils (% ) (Auto) 0.7, Neutrophils # (Auto) 3.3, Lymphocytes # (Auto) 0.8 L, Monocytes # (Auto) 1.0 H, Eosinophils # (Auto) 0.3, Basophils # (Auto) 0.0, Calcium Level 8.8 Microbiology Microbiology 06/14/17 Blood Culture - Preliminary, Resulted No growth after 24 hours . All specim... 06/14/17 Blood Culture - Preliminary, Resulted No growth after 24 hours . All specim... 06/14/17 Urine Culture - Final, Complete Yeast Like Organism ANDRE LOVELL MD Jun 16, 2017 10:38
[2017-06-16] MEDS: CEFTRIAXONE SOD 2 GM in APPROPRIATE DILUENT 1 EA IV SCH (13:08)
[2017-06-16 14:00] VITALS: BP 132/70
[2017-06-16] MEDS: traZODone 50 MG TAB PO SCH (20:22)
[2017-06-16 22:00] VITALS: BP 134/60
[2017-06-17] MEDS: LEVOTHYROXINE 25MCG TABLET (0.025MG) PO SCH (05:42)
[2017-06-17 05:48] LABS: BASO % 0.8 % (0.0-1.0); EOS # 0.3 10^3/uL (0.0-0.50); EOS % 5.9 % (0.0-3.0); IMMATURE GRANULOCYTE % 0.4 % (0-0); LYMPH # 0.7 10^3/uL (1.5-4.5); MEAN CORPUSCULAR HEMOGLOBIN 29.1 pg (27.0-33.0); MEAN CORPUSCULAR HGB CONC 30.8 g/dl (32.0-36.5); MEAN CORPUSCULAR VOLUME 94.6 fl (80.0-96.0); MONO # 0.7 10^3/uL (0.0-0.8); MONO % 13.6 % (0.0-5.0); NEUTROPHILS # 3.2 10^3/uL (1.8-7.7); NEUTROPHILS % 64.3 % (36.0-66.0); RED CELL DISTRIBUTION WIDTH 15.5 % (11.5-14.5); WHITE BLOOD COUNT 4.9 10^3/uL (4.0-10.0)
[2017-06-17 05:51] LABS: PLATELET COUNT, AUTOMATED 89 10^3/uL (150-450)
[2017-06-17 05:52] LABS: IMMATURE PLATELET FRACTION % 4.9 % (0.0-9.6)
[2017-06-17 06:00] VITALS: BP 130/60
[2017-06-17 06:08] LABS: CALCIUM LEVEL 8.6 MG/DL (8.8-10.2); CREATININE FOR GFR 1.36 MG/DL (0.55-1.02); GLOMERULAR FILTRATION RATE 39.6 (>32); POTASSIUM SERUM 4.4 MEQ/L (3.5-5.1)
[2017-06-17] MEDS: ALBUTEROL SULFATE 2.5 MG/0.5 ML INH NEB SOLN INH SCH (07:25)
[2017-06-17] MEDS: ESCITALOPRAM OXALATE 10 MG TAB (LEXAPRO) PO SCH (07:56)
[2017-06-17 07:57] VITALS: BP 130/60
[2017-06-17] MEDS: LACTOBACILLUS ACIDOPHILUS CAP (BACID) PO SCH (08:00)
[2017-06-17] MEDS: POTASSIUM CHLORIDE 10 MEQ SR TABLET PO SCH (08:01)
[2017-06-17] MEDS: ACETAMINOPHEN TAB 650MG DOSE (2X325MG) PO PRN (12:12)
[2017-06-17] MEDS: CEFTRIAXONE SOD 2 GM in APPROPRIATE DILUENT 1 EA IV SCH (13:00)
[2017-06-17 14:00] VITALS: BP 128/80
--- NOTE | 2017-06-17 14:30 | DS.PDOC ---
Discharge Summary General Date of Admission Jun 14, 2017 at 13:24 Date of Discharge 06/17/17 Discharge Summary PROCEDURES PERFORMED DURING STAY: None. ADMITTING/DISCHARGE DIAGNOSES: AMS possibly 2/2 UTI COMPLICATIONS/CHIEF COMPLAINT: Altered Mental Status. HISTORY OF PRESENT ILLNESS: . 81-year-old female with chronic grade 1 diastolic CHF, COPD on 2 L O2 at home, chronic kidney disease stage 3-4, history of C. difficile status post fecal transplant, hypertension, chronic anemia, chronic thrombocytopenia, hypothyroidism, diabetes mellitus, hyperlipidemia, GERD, history of CVA with persistent left arm weakness who presented with a one-day history of increasing confusion. The patient was barely seen by her caregiver and noted to be talking to herself, seeing things on the wall, and chewing on her dentures. There were no noted fevers, chills, chest pain, palpitations, abdominal pain, or any nausea or vomiting. She was brought into the emergency room for further evaluation and management. During hospitalization, the patient was treated for possible underlying urinary tract infection with IV antibiotics. The patient's mentation returned back to its baseline with gentle IV fluid hydration and the aforementioned antibiotic therapy. She has been noted to be back to her baseline mentation over the last 48 hours of hospitalization, and is eager to return home. I did speak to the patient's daughter, Renu and have provided an update regarding her clinical condition and progress. All questions was answered to her satisfaction. At this time, the patient has been stabilized to be discharged home. She has been advised to follow-up with her primary care physician within 7 days. In addition , it has been advised patient return to the ER for any acute emergencies. DISCHARGE MEDICATIONS: Please see below. ALLERGIES: Please see below. PHYSICAL EXAMINATION ON DISCHARGE: VITAL SIGNS: Please see below. General Exam: Positive: Alert, Cooperative, No Acute Distress ENT Exam: Positive: Atraumatic, Mucous membr. moist/pink Neck Exam: Negative: JVD Heart Exam: Positive: Rate Normal, Normal S1, Normal S2 Abdomen Exam: Positive: Soft, Negative: Tenderness Extremity Exam: Negative: Tenderness, Swelling Psych Exam: Positive: Oriented x 3 LABORATORY DATA: Please see below. IMAGING: Portable chest, 11:37 a.m., single AP view, patient sitting: Comparison 12/01/2016. The patient is significantly rotated. The previous right upper lobe and right lower lobe infiltrates have resolved. There is chronic interstitial coarsening compatible with chronic lung disease. Cardiac size is normal. Impression: Study is limited because of marked patient rotation. No acute infiltrates are identified. PROGNOSIS: Fair at this time, with poor long-term prognosis ACTIVITY: As tolerated. DIET: . 2 g low-sodium diet DISCHARGE PLAN: DISPOSITION: . Home with 23/01 care DISCHARGE INSTRUCTIONS: She has been advised to follow-up with her primary care physician within 7 days. In addition, it has been advised that the patient return to the ER for any acute emergencies. DISCHARGE CONDITION: Stable. TIME SPENT ON DISCHARGE: Greater than 30 minutes. Vital Signs/I&Os Vital Signs Date Time Temp Pulse Resp B/P (MAP) Pulse Ox O2 Delivery O2 Flow Rate FiO2 06/17/17 09:41 Nasal Cannula 2.0 06/17/17 07:57 76 130/60 06/17/17 06:00 98.0 17 97 I&O- Last 24 Hours up to 6 AM 06/18/17 06:00 Intake Total 0 ml Balance 0 ml Laboratory Data Labs 24H Laboratory Tests 2 06/17/17 05:17: Immature Granulocyte % (Auto) 0.4H, White Blood Count 4.9, Red Blood Count 2.78L , Hemoglobin 8.1L, Hematocrit 26.3L, Mean Corpuscular Volume 94.6, Mean Corpuscular Hemoglobin 29.1, Mean Corpuscular Hemoglobin Concent 30.8L, Red Cell Distribution Width 15.5H, Platelet Count 89L, Neutrophils (%) (Auto) 64.3, Lymphocytes (%) (Auto) 15.0L, Monocytes (%) (Auto) 13.6H, Eosinophils (%) (Auto ) 5.9H, Basophils (%) (Auto) 0.8, Neutrophils # (Auto) 3.2, Lymphocytes # (Auto ) 0.7L, Monocytes # (Auto) 0.7, Eosinophils # (Auto) 0.3, Basophils # (Auto) 0.0 , Immature Granulocyte # (Auto) 0.0, Nucleated Red Blood Cells % (auto) 0.0, Immature Platelet Fraction 4.9, Anion Gap 5L, Glomerular Filtration Rate 39.6, Blood Urea Nitrogen 26H, Creatinine 1.36H, Sodium Level 144, Potassium Level 4.4 , Chloride Level 108H, Carbon Dioxide Level 31, Calcium Level 8.6L CBC/BMP Laboratory Tests 12/16/17 05:17 Red Blood Count 2.78 L, Mean Corpuscular Volume 94.6, Mean Corpuscular Hemoglobin 29.1, Mean Corpuscular Hemoglobin Concent 30.8 L, Red Cell Distribution Width 15.5 H, Neutrophils (%) (Auto) 64.3, Lymphocytes (%) (Auto) 15.0 L, Monocytes (%) (Auto) 13.6 H, Eosinophils (%) (Auto) 5.9 H, Basophils (% ) (Auto) 0.8, Neutrophils # (Auto) 3.2, Lymphocytes # (Auto) 0.7 L, Monocytes # (Auto) 0.7, Eosinophils # (Auto) 0.3, Basophils # (Auto) 0.0, Calcium Level 8.6 L Microbiology Microbiology 06/14/17 Blood Culture - Preliminary, Resulted No Growth after 72 hours. All specime... 06/14/17 Blood Culture - Preliminary, Resulted No Growth after 72 hours. All specime... 06/14/17 Urine Culture - Final, Complete Yeast Like Organism Discharge Medications Scheduled Albuterol Sulfate (Albuterol Sulfate) 0.63 Mg/3 Ml Neb, 0.63 MG INH TID, ( Reported) Doxycycline Hyclate (Doxycycline Hyclate) 100 Mg Cap, 100 MG PO Q12H, (Reported) STARTED 06/06 Escitalopram Oxalate (Lexapro) 20 Mg Tab, 20 MG PO DAILY, (Reported) Levothyroxine Sodium (Synthroid) 25 Mcg Tab, 25 MCG PO DAILY, (Reported) Potassium Chloride (Klor-Con M10) 10 Meq Tabcr, 10 MEQ PO BID, (Reported) Scopolamine (Scopolamine) 1 Mg/3 Days Dis, 1 MG TD ASDIRECTED, (Reported) APPLIED BEHIND RIGHT EAR Trazodone HCl (Trazodone HCl) 50 Mg Tab, 50 MG PO QHS, (Reported) Allergies Coded Allergies: Ciprofloxacin (Unverified Allergy, Unknown, 01/02/16) Heparin (Verified Allergy, Unknown, 05/26/16) patient has elevated heparin antibodies Baclofen (Verified Adverse Reaction, Intermediate, Extreme confusion, ) ANDRE LOVELL MD Jun 17, 2017 14:30
[2017-06-17] MEDS ORDERED: POTA10CA PO (15:13)
== END 2017-06-17 15:16 | disposition home health service (06) | DRG 690 ==
LOC: M ED 09:52 → M ED INP 13:24 → M MSPAV 14:20
PROVIDERS: ADMIT General Practice; ATTEND Internal Medicine
DX: N39.0 Urinary tract infection, site not specified (principal); I50.32 Chronic diastolic (congestive) heart failure; I13.0 Hypertensive heart and chronic kidney disease with heart failure and stage 1 through stage 4 chronic kidney disease, or unspecified chronic kidney disease; J96.11 Chronic respiratory failure with hypoxia; R41.82 Altered mental status, unspecified; J44.9 Chronic obstructive pulmonary disease, unspecified; N18.3 Chronic kidney disease, stage 3 (moderate); D63.8 Anemia in other chronic diseases classified elsewhere; D69.6 Thrombocytopenia, unspecified; E55.9 Vitamin D deficiency, unspecified; E03.9 Hypothyroidism, unspecified; E78.5 Hyperlipidemia, unspecified; E11.22 Type 2 diabetes mellitus with diabetic chronic kidney disease; E87.6 Hypokalemia; K21.0 Gastro-esophageal reflux disease with esophagitis; I71.4 Abdominal aortic aneurysm, without rupture; F41.9 Anxiety disorder, unspecified; K44.9 Diaphragmatic hernia without obstruction or gangrene; F32.9 Major depressive disorder, single episode, unspecified; M41.9 Scoliosis, unspecified; M19.90 Unspecified osteoarthritis, unspecified site; R91.1 Solitary pulmonary nodule; Z96.641 Presence of right artificial hip joint; Z87.891 Personal history of nicotine dependence; Z87.442 Personal history of urinary calculi; Z79.899 Other long term (current) drug therapy; Z88.1 Allergy status to other antibiotic agents; Z88.8 Allergy status to other drugs, medicaments and biological substances

== ENCOUNTER → 2017-11-14 | Outpatient (CLI) | payer MEDICARE, MEDICAID | LOC: M ONCR 09:49 | DX: C44.619 Basal cell carcinoma of skin of left upper limb, including shoulder (principal) | CPT/HCPCS: G0463 ==

== ENCOUNTER 2017-11-26 09:35 | Observation (INO) | payer MEDICARE, MEDICAID ==
[2017-11-26 10:37] LABS: BASO % 0.6 % (0.0-1.0); EOS # 0.2 10^3/uL (0.0-0.50); EOS % 3.7 % (0.0-3.0); HEMATOCRIT 28.3 % (36.0-47.0); HEMOGLOBIN 8.6 g/dl (12.0-15.5); IMMATURE GRANULOCYTE % 0.4 % (0-3.0); LYMPH # 0.7 10^3/uL (1.5-4.5); MEAN CORPUSCULAR HEMOGLOBIN 29.1 pg (27.0-33.0); MEAN CORPUSCULAR HGB CONC 30.4 g/dl (32.0-36.5); MEAN CORPUSCULAR VOLUME 95.6 fl (80.0-96.0); MONO # 0.5 10^3/uL (0.0-0.8); MONO % 11.4 % (0.0-5.0); NEUTROPHILS # 3.2 10^3/uL (1.8-7.7); NEUTROPHILS % 69.9 % (36.0-66.0); PLATELET COUNT, AUTOMATED 108 10^3/uL (150-450); RED BLOOD COUNT 2.96 10^6/uL (4.00-5.40); RED CELL DISTRIBUTION WIDTH 16.6 % (11.5-14.5); WHITE BLOOD COUNT 4.6 10^3/uL (4.0-10.0)
[2017-11-26 10:46] LABS: AMORPHOUS SEDIMENT RFX SMALL (NEGATIVE); KETONE, URINE AUTO RFX NEGATIVE (NEGATIVE); LEUKOCYTE ESTERASE UR AUTO RFX 3+ (NEGATIVE); MUCUS, URINE RFX SMALL (NEGATIVE); NITRITE, URINE AUTO RFX NEGATIVE (NEGATIVE); RBC, URINE AUTO RFX TNTC /HPF (0-3); SQUAM EPITHELIAL CELL UR AURFX 1 /HPF (0-6); WBC, URINE AUTO RFX 164 /HPF (0-3)
[2017-11-26 11:05] LABS: ALBUMIN 2.6 GM/DL (3.2-5.2); ALBUMIN/GLOBULIN RATIO 0.55 (1.00-1.93); ALKALINE PHOSPHATASE 96 U/L (45-117); ALT/SGPT 14 U/L (12-78); ANION GAP 5 MEQ/L (8-16); AST/SGOT 28 U/L (7-37); BILIRUBIN,DIRECT 0.1 MG/DL (0.0-0.2); BILIRUBIN,TOTAL 0.4 MG/DL (0.2-1.0); BLOOD UREA NITROGEN 15 MG/DL (7-18); CALCIUM LEVEL 8.3 MG/DL (8.8-10.2); CARBON DIOXIDE LEVEL 30 MEQ/L (21-32); CHLORIDE LEVEL 111 MEQ/L (98-107); CPK CREATINE PHOSPHOKINASE 45 U/L (26-192); CREATININE FOR GFR 1.56 MG/DL (0.55-1.30); GLOMERULAR FILTRATION RATE 33.7 (>32); GLUCOSE, FASTING 92 MG/DL (70-100); POTASSIUM SERUM 4.1 MEQ/L (3.5-5.1); SODIUM LEVEL 146 MEQ/L (136-145); TOTAL PROTEIN 7.3 GM/DL (6.4-8.2); TROPONIN I < 0.02 NG/ML (< 0.10)
[2017-11-26 11:11] LABS: CK-MB VALUE MASS < 1.0 NG/ML (<3.6); MB/CK RELATIVE INDEX 2.22 (< OR =4)
[2017-11-26] MEDS ORDERED: DEXTROSE 50% 50 ML SYRINGE IV (13:30)
[2017-11-26] MEDS ORDERED: GLUCAGON FOR INJ 1 MG VIAL (J1610) SC (13:30)
[2017-11-26] MEDS ORDERED: ONDANSETRON 4MG/2ML VIAL (J2405) IV (13:30)
[2017-11-26] MEDS ORDERED: GLUCOSE 4 GM CHEW TABLET PO (13:30)
[2017-11-26] MEDS ORDERED: IPRATROPIUM 0.5MG/ALBUTEROL 2.5MG INH SOL UD 3ML (DUONEB)(J7620) NEB (13:30)
[2017-11-26] MEDS: IPRATROPIUM 0.5MG/ALBUTEROL 2.5MG INH SOL UD 3ML (DUONEB)(J7620) NEB (15:32)
[2017-11-26] MEDS: NS 1,000 ML IV (15:49)
[2017-11-26 16:51] LABS: BEDSIDE GLUCOSE 109 MG/DL (83-110)
[2017-11-26] MEDS: POTASSIUM CHLORIDE 10 MEQ SR TABLET PO (17:26)
[2017-11-26] MEDS: ESCITALOPRAM OXALATE 10 MG TAB (LEXAPRO) PO (17:26)
[2017-11-26] MEDS: HumaLOG INSULIN (NovoLOG) PER UNIT SC ×2 (17:27→21:00)
[2017-11-26] MEDS: traZODone 50 MG TAB PO (20:55)
[2017-11-26 21:04] LABS: BEDSIDE GLUCOSE 81 MG/DL (83-110)
[2017-11-27] MEDS: IPRATROPIUM 0.5MG/ALBUTEROL 2.5MG INH SOL UD 3ML (DUONEB)(J7620) NEB ×3 (02:33→15:34)
[2017-11-27] MEDS: LEVOTHYROXINE 25MCG TABLET (0.025MG) PO (05:21)
[2017-11-27] MEDS: ACETAMINOPHEN TAB 650MG DOSE (2X325MG) PO ×2 (05:22→21:37)
[2017-11-27 06:28] LABS: BEDSIDE GLUCOSE 81 MG/DL (83-110)
[2017-11-27] MEDS: HumaLOG INSULIN (NovoLOG) PER UNIT SC ×4 (06:57→21:00)
[2017-11-27 07:39] LABS: HEMATOCRIT 24.7 % (36.0-47.0); HEMOGLOBIN 7.4 g/dl (12.0-15.5); MEAN CORPUSCULAR VOLUME 96.9 fl (80.0-96.0); RED BLOOD COUNT 2.55 10^6/uL (4.00-5.40); RED CELL DISTRIBUTION WIDTH 16.3 % (11.5-14.5); WHITE BLOOD COUNT 3.2 10^3/uL (4.0-10.0)
[2017-11-27 07:40] LABS: IMMATURE PLATELET FRACTION % 3.2 % (0.0-9.6); PLATELET COUNT, AUTOMATED 78 10^3/uL (150-450)
[2017-11-27 08:02] LABS: LACTIC ACID SEPSIS PROTOCOL 0.7 MMOL/L (0.4-2.0)
[2017-11-27 08:03] LABS: ANION GAP 6 MEQ/L (8-16); BLOOD UREA NITROGEN 15 MG/DL (7-18); CALCIUM LEVEL 7.8 MG/DL (8.8-10.2); CARBON DIOXIDE LEVEL 24 MEQ/L (21-32); CHLORIDE LEVEL 113 MEQ/L (98-107); CREATININE FOR GFR 1.52 MG/DL (0.55-1.30); GLOMERULAR FILTRATION RATE 34.8 (>32); GLUCOSE, FASTING 78 MG/DL (70-100); POTASSIUM SERUM 4.2 MEQ/L (3.5-5.1); SODIUM LEVEL 143 MEQ/L (136-145); TROPONIN I < 0.02 NG/ML (< 0.10)
[2017-11-27] MEDS: ESCITALOPRAM OXALATE 10 MG TAB (LEXAPRO) PO (08:26)
[2017-11-27] MEDS: POTASSIUM CHLORIDE 10 MEQ SR TABLET PO (08:27)
[2017-11-27 09:59] LABS: FERRITIN 19 NG/ML (8-252); IRON (FE) 40 UG/DL (50-170); PERCENT SATURATION 9.4 % (13.2-45.0); RETICULOCYTE # 41.6 10^9/L (17-77); RETICULOCYTE % 1.6 % (0.5-1.5); TOTAL IRON BINDING CAPACITY 424 UG/DL (250-450)
[2017-11-27 10:05] LABS: REASON FOR REVIEW ANEMIA / RBC MORPH; SOURCE PERIPHERAL SMEAR
[2017-11-27 10:06] LABS: SLIDE REVIEW Report
[2017-11-27 11:37] LABS: BEDSIDE GLUCOSE 230 MG/DL (83-110)
[2017-11-27] MEDS: NYSTATIN 100,000 UNITS/GM TOPICAL PWD 15 GM TOP ×2 (12:23→21:37)
[2017-11-27 13:30] LABS: HEMATOCRIT 25.6 % (36.0-47.0); HEMOGLOBIN 7.7 g/dl (12.0-15.5); MEAN CORPUSCULAR HEMOGLOBIN 29.1 pg (27.0-33.0); MEAN CORPUSCULAR HGB CONC 30.1 g/dl (32.0-36.5); MEAN CORPUSCULAR VOLUME 96.6 fl (80.0-96.0); PLATELET COUNT, AUTOMATED 104 10^3/uL (150-450); RED BLOOD COUNT 2.65 10^6/uL (4.00-5.40); RED CELL DISTRIBUTION WIDTH 16.2 % (11.5-14.5); WHITE BLOOD COUNT 4.6 10^3/uL (4.0-10.0)
[2017-11-27 13:51] LABS: ANION GAP 6 MEQ/L (8-16); BLOOD UREA NITROGEN 16 MG/DL (7-18); CALCIUM LEVEL 7.7 MG/DL (8.8-10.2); CARBON DIOXIDE LEVEL 26 MEQ/L (21-32); CHLORIDE LEVEL 113 MEQ/L (98-107); CREATININE FOR GFR 1.65 MG/DL (0.55-1.30); GLOMERULAR FILTRATION RATE 31.6 (>32); GLUCOSE, FASTING 149 MG/DL (70-100); POTASSIUM SERUM 3.3 MEQ/L (3.5-5.1); SODIUM LEVEL 145 MEQ/L (136-145)
[2017-11-27 16:38] LABS: BEDSIDE GLUCOSE 115 MG/DL (83-110)
[2017-11-27 20:30] LABS: BEDSIDE GLUCOSE 109 MG/DL (83-110)
[2017-11-27] MEDS: traZODone 50 MG TAB PO (21:36)
[2017-11-28] MEDS: LEVOTHYROXINE 25MCG TABLET (0.025MG) PO (06:38)
[2017-11-28 07:00] LABS: HEMATOCRIT 24.8 % (36.0-47.0); HEMOGLOBIN 7.5 g/dl (12.0-15.5); MEAN CORPUSCULAR HEMOGLOBIN 29.3 pg (27.0-33.0); MEAN CORPUSCULAR HGB CONC 30.2 g/dl (32.0-36.5); MEAN CORPUSCULAR VOLUME 96.9 fl (80.0-96.0); RED BLOOD COUNT 2.56 10^6/uL (4.00-5.40); RED CELL DISTRIBUTION WIDTH 16.2 % (11.5-14.5); WHITE BLOOD COUNT 2.8 10^3/uL (4.0-10.0)
[2017-11-28 07:13] LABS: PLATELET COUNT, AUTOMATED 73 10^3/uL (150-450)
[2017-11-28 07:20] LABS: ANION GAP 7 MEQ/L (8-16); BLOOD UREA NITROGEN 14 MG/DL (7-18); CARBON DIOXIDE LEVEL 26 MEQ/L (21-32); CHLORIDE LEVEL 113 MEQ/L (98-107); CREATININE FOR GFR 1.43 MG/DL (0.55-1.30); GLOMERULAR FILTRATION RATE 37.3 (>32); GLUCOSE, FASTING 77 MG/DL (70-100); POTASSIUM SERUM 3.8 MEQ/L (3.5-5.1); SODIUM LEVEL 146 MEQ/L (136-145)
[2017-11-28] MEDS: HumaLOG INSULIN (NovoLOG) PER UNIT SC ×4 (07:30→21:00)
[2017-11-28] MEDS: IPRATROPIUM 0.5MG/ALBUTEROL 2.5MG INH SOL UD 3ML (DUONEB)(J7620) NEB ×4 (08:00→14:46)
[2017-11-28] MEDS: ESCITALOPRAM OXALATE 10 MG TAB (LEXAPRO) PO (08:16)
[2017-11-28] MEDS: NYSTATIN 100,000 UNITS/GM TOPICAL PWD 15 GM TOP ×2 (08:16→21:05)
[2017-11-28] MEDS: POTASSIUM CHLORIDE 10 MEQ SR TABLET PO (08:16)
[2017-11-28 12:49] LABS: BEDSIDE GLUCOSE 101 MG/DL (83-110)
[2017-11-28 16:36] LABS: BEDSIDE GLUCOSE 142 MG/DL (83-110)
[2017-11-28 20:35] LABS: BEDSIDE GLUCOSE 64 MG/DL (83-110)
[2017-11-28] MEDS: traZODone 50 MG TAB PO (21:03)
[2017-11-29] MEDS: ACETAMINOPHEN TAB 650MG DOSE (2X325MG) PO ×2 (02:15→08:27)
[2017-11-29 05:48] LABS: BEDSIDE GLUCOSE 82 MG/DL (83-110)
[2017-11-29] MEDS: LEVOTHYROXINE 25MCG TABLET (0.025MG) PO (06:10)
[2017-11-29 06:53] LABS: HEMATOCRIT 24.3 % (36.0-47.0); HEMOGLOBIN 7.3 g/dl (12.0-15.5); MEAN CORPUSCULAR HEMOGLOBIN 29.1 pg (27.0-33.0); MEAN CORPUSCULAR VOLUME 96.8 fl (80.0-96.0); RED BLOOD COUNT 2.51 10^6/uL (4.00-5.40); RED CELL DISTRIBUTION WIDTH 15.9 % (11.5-14.5); WHITE BLOOD COUNT 4.1 10^3/uL (4.0-10.0)
[2017-11-29 06:58] LABS: PLATELET COUNT, AUTOMATED 79 10^3/uL (150-450)
[2017-11-29 06:59] LABS: IMMATURE PLATELET FRACTION % 3.1 % (0.0-9.6)
[2017-11-29] MEDS: IPRATROPIUM 0.5MG/ALBUTEROL 2.5MG INH SOL UD 3ML (DUONEB)(J7620) NEB ×4 (07:11→21:39)
[2017-11-29 07:12] LABS: ANION GAP 3 MEQ/L (8-16); BLOOD UREA NITROGEN 13 MG/DL (7-18); CALCIUM LEVEL 8.1 MG/DL (8.8-10.2); CARBON DIOXIDE LEVEL 30 MEQ/L (21-32); CHLORIDE LEVEL 112 MEQ/L (98-107); CREATININE FOR GFR 1.37 MG/DL (0.55-1.30); GLOMERULAR FILTRATION RATE 39.2 (>32); GLUCOSE, FASTING 76 MG/DL (70-100); POTASSIUM SERUM 3.9 MEQ/L (3.5-5.1); SODIUM LEVEL 145 MEQ/L (136-145)
[2017-11-29] MEDS: HumaLOG INSULIN (NovoLOG) PER UNIT SC ×4 (07:30→21:00)
[2017-11-29] MEDS: ESCITALOPRAM OXALATE 10 MG TAB (LEXAPRO) PO (08:27)
[2017-11-29] MEDS: POTASSIUM CHLORIDE 10 MEQ SR TABLET PO (08:27)
[2017-11-29] MEDS: NYSTATIN 100,000 UNITS/GM TOPICAL PWD 15 GM TOP ×2 (08:28→21:51)
[2017-11-29 11:30] LABS: BEDSIDE GLUCOSE 163 MG/DL (83-110)
[2017-11-29] MEDS: traZODone 50 MG TAB PO (21:50)
[2017-11-30] MEDS: LEVOTHYROXINE 25MCG TABLET (0.025MG) PO (06:10)
[2017-11-30 06:50] LABS: MEAN CORPUSCULAR HEMOGLOBIN 29.2 pg (27.0-33.0); MEAN CORPUSCULAR VOLUME 97.5 fl (80.0-96.0); RED BLOOD COUNT 2.36 10^6/uL (4.00-5.40); RED CELL DISTRIBUTION WIDTH 16.1 % (11.5-14.5); WHITE BLOOD COUNT 3.8 10^3/uL (4.0-10.0)
[2017-11-30 06:54] LABS: HEMOGLOBIN 6.9 g/dl (12.0-15.5); PLATELET COUNT, AUTOMATED 80 10^3/uL (150-450)
[2017-11-30 06:56] LABS: IMMATURE PLATELET FRACTION % 2.7 % (0.0-9.6)
[2017-11-30 07:05] LABS: ANION GAP 5 MEQ/L (8-16); BLOOD UREA NITROGEN 12 MG/DL (7-18); CALCIUM LEVEL 7.7 MG/DL (8.8-10.2); CARBON DIOXIDE LEVEL 29 MEQ/L (21-32); CHLORIDE LEVEL 112 MEQ/L (98-107); CREATININE FOR GFR 1.44 MG/DL (0.55-1.30); GLUCOSE, FASTING 87 MG/DL (70-100); POTASSIUM SERUM 3.7 MEQ/L (3.5-5.1); SODIUM LEVEL 146 MEQ/L (136-145)
[2017-11-30] MEDS: HumaLOG INSULIN (NovoLOG) PER UNIT SC ×2 (07:30→13:05)
[2017-11-30] MEDS: IPRATROPIUM 0.5MG/ALBUTEROL 2.5MG INH SOL UD 3ML (DUONEB)(J7620) NEB ×2 (08:09→15:36)
[2017-11-30] MEDS: POTASSIUM CHLORIDE 10 MEQ SR TABLET PO (08:30)
[2017-11-30] MEDS: ESCITALOPRAM OXALATE 10 MG TAB (LEXAPRO) PO (08:30)
[2017-11-30] MEDS: NYSTATIN 100,000 UNITS/GM TOPICAL PWD 15 GM TOP (08:31)
[2017-11-30 10:11] LABS: BEDSIDE GLUCOSE 55 MG/DL (83-110)
[2017-11-30 10:13] LABS: BEDSIDE GLUCOSE 156 MG/DL (83-110)
[2017-11-30 11:39] LABS: BEDSIDE GLUCOSE 97 MG/DL (83-110)
[2017-11-30 11:39] LABS: BEDSIDE GLUCOSE 171 MG/DL (83-110)
[2017-11-30] MEDS: ACETAMINOPHEN TAB 650MG DOSE (2X325MG) PO (16:05)
== END 2017-11-30 16:00 | disposition home health service (06) ==
LOC: M ED 09:35 → M ED INP 13:29 → M MS5PR 14:45
DX: G93.41 Metabolic encephalopathy (principal); L08.9 Local infection of the skin and subcutaneous tissue, unspecified; E03.9 Hypothyroidism, unspecified; E11.9 Type 2 diabetes mellitus without complications; J96.11 Chronic respiratory failure with hypoxia; E87.6 Hypokalemia; R82.71 Bacteriuria; D61.818 Other pancytopenia; N18.3 Chronic kidney disease, stage 3 (moderate); E87.5 Hyperkalemia; F32.9 Major depressive disorder, single episode, unspecified; J44.9 Chronic obstructive pulmonary disease, unspecified; I13.0 Hypertensive heart and chronic kidney disease with heart failure and stage 1 through stage 4 chronic kidney disease, or unspecified chronic kidney disease; D69.6 Thrombocytopenia, unspecified; I50.32 Chronic diastolic (congestive) heart failure; E55.9 Vitamin D deficiency, unspecified; E78.5 Hyperlipidemia, unspecified; I71.4 Abdominal aortic aneurysm, without rupture; K21.0 Gastro-esophageal reflux disease with esophagitis; K44.9 Diaphragmatic hernia without obstruction or gangrene; M41.9 Scoliosis, unspecified; M19.90 Unspecified osteoarthritis, unspecified site; K57.90 Diverticulosis of intestine, part unspecified, without perforation or abscess without bleeding; R91.1 Solitary pulmonary nodule; I69.354 Hemiplegia and hemiparesis following cerebral infarction affecting left non-dominant side; G47.00 Insomnia, unspecified; Z87.891 Personal history of nicotine dependence; Z79.899 Other long term (current) drug therapy; Z99.81 Dependence on supplemental oxygen; Z88.1 Allergy status to other antibiotic agents; Z88.8 Allergy status to other drugs, medicaments and biological substances
CPT/HCPCS: 71045

== ENCOUNTER 2017-12-06 10:07 | Outpatient (RCR) | payer MEDICARE, MEDICAID | END 2017-12-30 | LOC: M ONCR 10:07 | DX: C44.702 Unspecified malignant neoplasm of skin of right lower limb, including hip (principal) | CPT/HCPCS: 77300 ==

== ENCOUNTER → 2018-02-14 | Outpatient (CLI) | payer MEDICARE, MEDICAID | LOC: M ONCR 14:37 | DX: C44.702 Unspecified malignant neoplasm of skin of right lower limb, including hip (principal) | CPT/HCPCS: G0463 ==

== ENCOUNTER → 2018-10-03 | Outpatient (REF) | payer MEDICARE, MEDICAID ==
[~2018-10-03] MED LIST changes: -/PANT40TA OR; -/TIOT18INH INH; +ALBU0.63 INH; -AMLO5TAB2 PO; +AMLO5TAB6 PO; -ANUSHCSU PR; +BACL10TA2 PO; -DOXY-278 PO; +DOXY-350 PO; +DOXY100C PO; +HYDR-2773 PO; -HYDR10TAB PO; -HYDR1OI TOP; +HYDR1OIN2 TOP; +HYDR1SUP3 PR; +IPRA0.00 INH; -IPRASOL4 INH; +KLOR10TA76 PO; +LEXA1TAB2 PO; +MILK120011 PO; -MILKSUS PO; -MORP1SOL PO; +MORP20SO16 PO; +NYAM10003 TOP; +OXYGEN; -POTA10CA PO; +PRED-351 PO; -PRED10TA PO; +PROT1TAB2 OR; +SCOP1DIS TD; +SPIR-10 PO; -SPIR25TA2 PO; +TRAZ-160 PO; -TRAZ50TA11 PO; -VITA1CAP40 PO; +VITA50005 PO
[2018-10-03 15:13] LABS: PERCENT SATURATION 19.6 % (13.2-45.0)
== END ==
LOC: M LAB REF 14:17
PROVIDERS: ATTEND Internal Medicine
DX: D64.9 Anemia, unspecified (principal)

== ENCOUNTER 2018-10-15 18:45 | Emergency (ER) | payer MEDICARE, MEDICAID ==
[~2018-10-15] VITALS: Ht 142.2 cm; Wt 45.0 kg
[2018-10-15 19:52] LABS: BASO % 0.3 % (0.0-1.0); EOS # 0.2 10^3/uL (0.0-0.50); EOS % 4.3 % (0.0-3.0); HEMATOCRIT 20.5 % (36.0-47.0); LYMPH # 0.5 10^3/uL (1.5-4.5); LYMPH % 12.7 % (24.0-44.0); MEAN CORPUSCULAR HEMOGLOBIN 34.2 pg (27.0-33.0); MEAN CORPUSCULAR HGB CONC 31.2 g/dl (32.0-36.5); MEAN CORPUSCULAR VOLUME 109.6 fl (80.0-96.0); MONO # 0.4 10^3/uL (0.0-0.8); MONO % 10.8 % (0.0-5.0); NEUTROPHILS # 2.7 10^3/uL (1.8-7.7); NEUTROPHILS % 71.4 % (36.0-66.0); RED BLOOD COUNT 1.87 10^6/uL (4.00-5.40); WHITE BLOOD COUNT 3.7 10^3/uL (4.0-10.0)
[2018-10-15 19:57] LABS: HEMOGLOBIN 6.4 g/dl (12.0-15.5); PLATELET COUNT, AUTOMATED 84 10^3/uL (150-450)
--- NOTE | 2018-10-15 20:29 | REPVR ---
EXAM: CT Head Without Contrast EXAM DATE/TIME: 10/15/2018 7:28 PM CLINICAL HISTORY: 83 years old, female; Signs and symptoms; Altered mental status/memory loss TECHNIQUE: Imaging protocol: Axial computed tomography images of the head/brain without contrast. Radiation optimization: All CT scans at this facility use at least one of these dose optimization techniques: automated exposure control; mA and/or kV adjustment per patient size (includes targeted exams where dose is matched to clinical indication); or iterative reconstruction. COMPARISON: CT Head without contrast 11/26/2017 11:08 AM FINDINGS: Brain: There is moderate age-related parenchymal volume loss. White matter changes are demonstrated in the subcortical, centrum semiovale and periventricular white matter consistent with small vessel white matter angiopathic gliosis. Chronic infarct periventricular, posterior limb of internal capsule, and subinsular region on the right. Ventricles: The degree of ventricular dilatation is normal for age. No pathologic enlargement demonstrated. Bones/joints: Unremarkable. No acute fracture. Sinuses: Visualized sinuses are unremarkable. No acute sinusitis. Mastoid air cells: Visualized mastoid air cells are unremarkable. No mastoid effusion. Soft tissues: Unremarkable. IMPRESSION: There is moderate age-related parenchymal volume loss. White matter changes are demonstrated in the subcortical, centrum semiovale and periventricular white matter consistent with small vessel white matter angiopathic gliosis. Chronic infarct right cerebral hemisphere. Electronically signed by: Christoph Donato On 10/15/2018 20:29:18 PM
[2018-10-15 20:30] LABS: ALBUMIN 2.6 GM/DL (3.2-5.2); ALT/SGPT 13 U/L (12-78); BILIRUBIN,DIRECT < 0.1 MG/DL (0.0-0.2); BILIRUBIN,TOTAL 0.3 MG/DL (0.2-1.0); BLOOD UREA NITROGEN 21 MG/DL (7-18); CALCIUM LEVEL 7.9 MG/DL (8.8-10.2); CARBON DIOXIDE LEVEL 28 MEQ/L (21-32); CHLORIDE LEVEL 111 MEQ/L (98-107); CPK CREATINE PHOSPHOKINASE 73 U/L (26-192); GLOMERULAR FILTRATION RATE 26.8 (>32); GLUCOSE, FASTING 78 MG/DL (70-100); MB/CK RELATIVE INDEX 1.92 (< OR =4); POTASSIUM SERUM 4.8 MEQ/L (3.5-5.1); SODIUM LEVEL 142 MEQ/L (136-145); TOTAL PROTEIN 6.2 GM/DL (6.4-8.2); TROPONIN I < 0.02 NG/ML (< 0.10)
[2018-10-15] MEDS ORDERED: NS 500 ML IV ONE (21:45)
[2018-10-15] MEDS ORDERED: FERR325T3 PO (22:08)
[2018-10-15] MEDS ORDERED: B-12100T2 PO (22:08)
[2018-10-15 22:25] VITALS: BP 110/54
--- NOTE | 2018-10-16 07:33 | REP ---
Portable chest, 07:46 p.m., single semi upright AP view: Comparison is 11/26/2017. There is chronic interstitial coarsening compatible with chronic interstitial lung disease, unchanged. There is chronic cardiomegaly, unchanged. There are no focal infiltrates. There are no pleural effusions. There is scoliosis convex right at the thoracolumbar junction, unchanged. Impression: There are no acute cardiopulmonary findings. There are chronic stable findings. Electronically Signed by Hasmukh Crowe MD 10/16/2018 07:24 A
--- NOTE | 2018-10-16 21:30 | ECGEPIP ---
Stationary ECG Study 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
== END 2018-10-15 22:36 | disposition home or self-care (01) ==
LOC: EDBD 18:45 → M ED 18:45
DX: N17.9 Acute kidney failure, unspecified (principal); N18.9 Chronic kidney disease, unspecified; D61.818 Other pancytopenia

== ENCOUNTER → 2018-12-05 | Outpatient (REF) | payer MEDICARE, MEDICAID ==
[~2018-12-05] MED LIST changes: +B-12100T2 PO; +FERR325T3 PO; -TRAZ-160 PO; +TRAZ-252 PO
== END ==
LOC: M LAB REF 12:49
PROVIDERS: ATTEND Internal Medicine
DX: D64.9 Anemia, unspecified (principal)

== ENCOUNTER 2019-09-05 19:34 | Inpatient (IN) | payer MEDICARE, MEDICAID ==
[~2019-09-05] VITALS: Ht 142.2 cm; Wt 36.7 kg
[~2019-09-05 19:34] MED LIST changes: +CYAN500T8 PO; -LORA1TAB12 PO; +LORA1TAB4 PO; -VITA500T3 PO
[2019-09-05] MEDS ORDERED: IPRATROPIUM 0.5MG/ALBUTEROL 2.5MG INH SOL UD 3ML (DUONEB)(J7620) NEB ONE (21:45)
[2019-09-05 22:15] LABS: BASO % 0.5 % (0.0-1.0); EOS # 0.1 10^3/uL (0.0-0.5); EOS % 1.3 % (0.0-3.0); HEMATOCRIT 26.1 % (36.0-47.0); LYMPH # 0.7 10^3/uL (1.5-5.0); MEAN CORPUSCULAR HEMOGLOBIN 30.8 pg (27.0-33.0); MEAN CORPUSCULAR HGB CONC 30.7 g/dl (32.0-36.5); MEAN CORPUSCULAR VOLUME 100.4 fl (80.0-96.0); MONO # 0.7 10^3/uL (0.0-0.8); MONO % 8.5 % (0.0-5.0); NEUTROPHILS # 6.8 10^3/uL (1.5-8.5); NEUTROPHILS % 80.6 % (36.0-66.0); PLATELET COUNT, AUTOMATED 123 10^3/uL (150-450); WHITE BLOOD COUNT 8.5 10^3/uL (4.0-10.0)
[2019-09-05 22:49] LABS: BLOOD UREA NITROGEN 24 MG/DL (7-18); CALCIUM LEVEL 7.9 MG/DL (8.8-10.2); CARBON DIOXIDE LEVEL 29 MEQ/L (21-32); CHLORIDE LEVEL 107 MEQ/L (98-107); CK-MB VALUE MASS < 1.0 NG/ML (<3.6); CPK CREATINE PHOSPHOKINASE 38 U/L (26-192); CREATININE FOR GFR 2.05 MG/DL (0.55-1.30); GLOMERULAR FILTRATION RATE 24.5 (>32); GLUCOSE, FASTING 98 MG/DL (70-100); MB/CK RELATIVE INDEX 2.63 (< OR =4); NT-PRO BNP 3077 PG/ML (<450); POTASSIUM SERUM 3.6 MEQ/L (3.5-5.1); SODIUM LEVEL 142 MEQ/L (136-145)
[2019-09-06] VITALS (7 sets, daily range): BP systolic 123–147; BP diastolic 57–81; O2SAT 96
[2019-09-06] MEDS ORDERED: methylPREDNISolone INJ 40 MG/1 ML VIAL (J2920) IV ONE (00:30)
[2019-09-06] MEDS ORDERED: FERR325T16 PO (00:43)
[2019-09-06] MEDS ORDERED: ALBUTEROL SULFATE 2.5 MG/0.5 ML INH NEB SOLN NEB PRN (00:45)
[2019-09-06] MEDS ORDERED: GLUCAGON FOR INJ 1 MG VIAL (J1610) SC PRN (00:45)
[2019-09-06] MEDS ORDERED: DEXTROSE 50% 50 ML SYRINGE IV PRN (00:45)
[2019-09-06] MEDS ORDERED: CYAN100050 PO (00:45)
[2019-09-06] MEDS ORDERED: GLUCOSE 4 GM CHEW TABLET PO PRN (00:45)
[2019-09-06] MEDS ORDERED: FOLI800C PO (00:45)
[2019-09-06] MEDS ORDERED: ACETAMINOPHEN TAB 650MG DOSE (2X325MG) PO PRN (00:45)
--- NOTE | 2019-09-06 01:16 | REPVR ---
PROCEDURE INFORMATION: Exam: CT Chest Without Contrast Exam date and time: 09/06/2019 12:26 AM Age: 84 years old Clinical indication: Shortness of breath; Additional info: Hypoxic respiratory failure w neg resp panel R/O pna TECHNIQUE: Imaging protocol: Computed tomography of the chest without contrast. 3D rendering: MIP and/or 3D reconstructed images were created by the technologist. Radiation optimization: All CT scans at this facility use at least one of these dose optimization techniques: automated exposure control; mA and/or kV adjustment per patient size (includes targeted exams where dose is matched to clinical indication); or iterative reconstruction. COMPARISON: CT Chest without contrast 05/03/2016 10:16 AM FINDINGS: Lungs: Coarse interstitium with mild bilateral lower lobe fibro-atelectatic change. There is question of minimal patchy bilateral pulmonary infiltrates. Pleural space: Minimal left pleural effusion. Heart: Unremarkable. No cardiomegaly. No pericardial effusion. Aorta: Mild aneurysmal dilatation of the abdominal aorta measuring 4.0 cm in diameter. Lymph nodes: Unremarkable. No enlarged lymph nodes. Gallbladder and bile ducts: There are multiple gallstones in the gallbladder. Spleen: Borderline splenomegaly. Adrenals: Mild bilateral adrenal fullness. Kidneys and ureters: Multiple bilateral renal calculi measuring up to 2.2 cm in the right renal pelvis. Bones/joints: Unremarkable. No acute fracture. Soft tissues: Unremarkable. IMPRESSION: 1. Minimal left pleural effusion with coarse interstitium and mild bilateral lower lobe fibro-atelectatic change and question of minimal patchy infiltrates. 2. Cholelithiasis. 3. Multiple large bilateral renal calculi measuring up to 2.2 cm in right pelvis. 4. Mild aneurysmal dilatation of the abdominal aorta measuring to 4.0 cm. 5. Borderline splenomegaly. Electronically signed by: Cristian Obrien On 09/06/2019 01:16:25 AM
[2019-09-06] MEDS: IPRATROPIUM 0.5MG/ALBUTEROL 2.5MG INH SOL UD 3ML (DUONEB)(J7620) NEB SCH ×4 (03:13→19:37)
--- NOTE | 2019-09-06 03:28 | HPEPDOC ---
[facility] Medical History & Physical Date of Admission Sep 06, 2019 Date of Service: Sep 06, 2019 Primary Care Physician: Jr Figueroa Collins Attending Physician: HEATHER NINO MD History and Physical CHIEF COMPLAINT: Altered mental status/shortness of breath HISTORY OF PRESENT ILLNESS: Patient is an 84-year-old female who was brought to the emergency department by her daughter for worsening mental status with difficulty breathing. Patient's family had relatives and from [place] and the family went to [facility] for the day. The patient did not accompany the trip however, upon their return she began seeing that she was sick. Patient is apparently altered baseline however, she is currently more altered than baseline. When I saw the patient, the patient's daughter was not in the room so was unable to obtain any further history from the patient. PAST MEDICAL HISTORY: 1. COPD. 2. C. difficile infections. 3. Chronic kidney disease 4. Hypertension 5. Anemia of chronic disease 6. Chronic thrombocytopenia 7. Diastolic heart failure 8. Vitamin D deficiency 9. Hypothyroidism 10. Hyperlipidemia 11. Diabetes mellitus 12. Abdominal aortic aneurysm 13. Scoliosis 14. History of CVA PAST SURGICAL HISTORY: 1. Hip replacement. 2. Cystoscopy. 3. Ureteral stent 4. Lithotripsy SOCIAL HISTORY: Patient lives at home with her daughter is her caregiver. Patient was on hospice in October 2016 percent. Taken away from their. Patient is a former smoker who quit greater than 20 years ago. Denies alcohol use FAMILY HISTORY: Unable to be obtained ALLERGIES: Please see below. REVIEW OF SYSTEMS: Unable to be obtained due to patient's altered mental status HOME MEDICATIONS: Please see below. PHYSICAL EXAMINATION: VITAL SIGNS: Temperature 97.7, pulse 86, respiratory rate 19, blood pressure 110/56, pulse oximetry 89% 2 L via nasal cannula. General: Alert but not oriented female who was laying in the bed curled up I walked in. Patient was not answering questions appropriately. Patient was in no acute distress. HEENT: Normocephalic, atraumatic, moist mucous membranes. Neck: No lymphadenopathy or thyromegaly Cardiac: Regular rate and rhythm, no murmurs, normal S1, normal S2 Pulm: Scattered and expiratory wheezing throughout lung camara. Abd: Nondistended, nontender to palpation, normal bowel sounds Ext: No edema bilateral lower extremities Skin: Skin of the abdomen, legs, arms, head, and neck were examined do not show any evidence of rash LABORATORY DATA: See below. IMAGING: A chest CT performed without contrast showed minimal left pleural effusion with coarse interstitium and mild bilateral lower lobe fibro- atelectatic change and question of minimal patchy infiltrates. Cholelithiasis. Multiple large bilateral renal calculi measuring up to 2.2 cm right pelvis. Mild aneurysmal dilatation of the abdominal aorta measuring up to 4 cm. Borderline splenomegaly. A chest x-ray was also performed and is pending official read from radiology however, there does appear to be coarse thickening throughout the lung parenchyma which appears unchanged from 10/15/2018. MICROBIOLOGY: Please see below. ASSESSMENT: Patient is an 84-year-old female who presented to the emergency department with worsening mental status. Respiratory panel was negative and patient does not have a large infiltrate seen on chest x-ray or chest CT. Patient does have some wheezing and was treated for COPD exacerbation. PLAN: 1. Altered mental status. This may be secondary to SIRS criteria being met with tachycardia and tachypnea upon arrival to the emergency room. We will keep close eye on the patient's vital signs and will give steroids to help with patient's breathing. Breathing treatments will also be given. 2. Possible COPD exacerbation. Patient does have some end expiratory wheezing however, she does not appear to be short of breath at rest. Nebulizers and oral prednisone daily given for 5 days. Respiratory panel was negative for any viral infection patient does not appear to have any infiltrates. Antibiotics not be given at this time. 3. History of diabetes mellitus. Because the patient will be placed on steroids, she will be on before meals at bedtime fingersticks. If her blood sugars are high, she can be placed on sliding scale insulin coverage. We have not placed he r on sliding scale coverage at this time as her blood sugar was 98 upon admission. 4. History of diastolic congestive heart failure. Patient's NT proBNP was 3077 on admission. Patient does not appear to be fluid overloaded so diuretics will not be started. 5. History of hypertension. We will monitor the patient's blood pressure closely and continue all home medications. 6. Chronic kidney disease. We will monitor the patient's creatinine closely. Patient appears to be around baseline as her last creatinine was on 10/15/2018 of 1.9. 7. Hypothyroidism. Continue home medications. 8. DVT prophylaxis TEDs and sequential devices patient has heparin allergy. 9. CODE STATUS: DNR/DNI Disposition. Patient was admitted to the progressive care unit for further monitoring. We continue to greater than 2 midnights today. Laboratory Data Labs 24H Laboratory Tests 2 09/05/19 21:41: Immature Granulocyte % (Auto) 1.1, Neutrophils (%) (Auto) 80.6H, Lymphocytes (%) (Auto) 8.0L, Monocytes (%) (Auto) 8.5H, Eosinophils (%) (Auto) 1.3, Basophils (%) (Auto) 0.5, Neutrophils # (Auto) 6.8, Lymphocytes # (Auto) 0.7L, Monocytes # (Auto) 0.7, Eosinophils # (Auto) 0.1, Basophils # (Auto) 0.0, Nucleated Red Blood Cells % (auto) 0.0, Anion Gap 6L, Glomerular Filtration Rate 24.5L, Lactic Acid Level 1.5, Calcium Level 7.9L, Total Creatine Kinase 38, Creatine Kinase MB < 1.0, Creatine Kinase MB Relative Index 2.63, Troponin I 0.10, WG-Ouy-D-Type Natriuretic Peptide 3077H 09/05/19 22:59: POC pH (Misc Panel) 7.371, POC Base Excess (Misc Panel) 2.0, POC Saturated Percent O2 (Misc) 93L, POC pO2 (Misc Panel) 68.0L, POC pCO2 (Misc Panel) 47.2H, POC HCO3 (Misc Panel) 27.5H, POC Total CO2 (Misc Panel) 29.0H 09/06/19 00:46: Urine Color YELLOW, Urine Appearance HAZY, Urine pH 6.0, Urine Specific [place] 1.009, Urine Protein 1+H, Urine Glucose (UA) 1+H, Urine Ketones TRACEH, Urine Blood 3+H, Urine Nitrite NEGATIVE, Urine Bilirubin NEGATIVE, Urine Urobilinogen 0.2, Urine Leukocyte Esterase 2+H, Urine WBC (Auto) 40H, Urine RBC (Auto) 83H, Urine Hyaline Casts (Auto) 0, Urine Bacteria (Auto) NEGATIVE, Urine Squamous Epithelial Cells 0, Urine Sperm (Auto) CBC/BMP Laboratory Tests 09/05/19 21:41 Microbiology Microbiology 09/06/19 Urine Culture, Received Pending 09/05/19 Respiratory Virus Panel (PCR) (GILDARDO) - Final, Complete 09/05/19 Blood Culture, Received Pending Home Medications Scheduled Albuterol Sulfate (Albuterol Sulfate) 0.63 Mg/3 Ml Neb, 0.63 MG INH TID Cyanocobalamin (Vitamin B-12) (Vitamin B-12) 1,000 Mcg Tablet, 1,000 MCG PO DAILY Escitalopram Oxalate (Lexapro) 20 Mg Tab, 10 MG PO DAILY Ferrous Gluconate (Ferrous Gluconate) 324 Mg Tablet, 324 MG PO BID Folic Acid (Folic Acid) 0.8 Mg Capsule, 800 MCG PO DAILY Potassium Chloride (Klor-Con M10) 10 Meq Tabcr, 10 MEQ PO DAILY Trazodone HCl (Trazodone HCl) 50 Mg Tab, 100 MG PO QHS Allergies Coded Allergies: heparin (Verified Allergy, Intermediate, patient has elevated heparin antibodies, 10/15/18) baclofen (Verified Adverse Reaction, Intermediate, EXTREME CONFUSION, 10/01 11/18) ciprofloxacin (Verified Adverse Reaction, Intermediate, AMS, 10/15/18) A-FIB/CHADSVASC A-FIB History Current/History of A-Fib/PAF?: No GME ATTESTATION GME ATTESTATION My faculty preceptor for this patient encounter was physically present during the encounter and was fully available. All aspects of the patient interview, examination, medical decision making process, and medical care plan development were reviewed and approved by the faculty preceptor. The faculty preceptor is aware and concurs with the plan as stated in the body of this note and will attest to such by his/her cosignature. ATTENDING NOTE TIME OF SERVICE 100AM I reviewed and edited the note and agree with the findings as documented by . CAITLYN MISHRA DO Sep 06, 2019 03:28 HEATHER NINO MD Sep 06, 2019 05:31
[2019-09-06 06:46] LABS: HEMATOCRIT 25.2 % (36.0-47.0); HEMOGLOBIN 7.8 g/dl (12.0-15.5); MEAN CORPUSCULAR HEMOGLOBIN 30.6 pg (27.0-33.0); MEAN CORPUSCULAR VOLUME 98.8 fl (80.0-96.0); PLATELET COUNT, AUTOMATED 119 10^3/uL (150-450); RED BLOOD COUNT 2.55 10^6/uL (4.00-5.40); WHITE BLOOD COUNT 6.1 10^3/uL (4.0-10.0)
[2019-09-06 07:15] LABS: CALCIUM LEVEL 7.8 MG/DL (8.8-10.2); CREATININE FOR GFR 2.17 MG/DL (0.55-1.30); GLOMERULAR FILTRATION RATE 22.9 (>32); POTASSIUM SERUM 4.2 MEQ/L (3.5-5.1)
--- NOTE | 2019-09-06 08:30 | REP ---
Portable chest x-ray: Single view. History: Dyspnea and cough. Comparison chest x-ray: October 15, 2018. Findings: Oxygen delivery tubing is seen. There is diffuse osteoporosis. Heart size is borderline. There is a diffuse interstitial fibrosis pattern in the lung camara. This is unchanged. The film is somewhat under penetrated compared to prior studies. No definite acute infiltrate. Impression: Diffuse interstitial fibrosis pattern most pronounced in the upper lobes. Somewhat under penetrated radiograph accentuating lung markings diffusely. No definite new infiltrate. Electronically Signed by Ramy Garcia MD 09/06/2019 08:22 A
[2019-09-06] MEDS: cefTRIAXone SOD 1 GM in D5W MINI-BAG PLUS 50 ML IV SCH (08:57)
[2019-09-06] MEDS: ESCITALOPRAM OXALATE 10 MG TAB (LEXAPRO) PO SCH (08:57)
[2019-09-06] MEDS: predniSONE 20 MG TAB PO SCH (08:58)
[2019-09-06] MEDS: FERROUS GLUCONATE 324 MG TAB PO SCH ×2 (08:58→21:00)
[2019-09-06] MEDS: POTASSIUM CHLORIDE 10 MEQ SR TABLET PO SCH (08:58)
--- NOTE | 2019-09-06 09:55 | IPNPDOC ---
Subjective Date Seen The patient was seen on 09/06/19. Subjective Chief Complaint/HPI Patient is awake, alert. She is not oriented to time, place and person but answers all questions in no apparent distress Constitutional: Denies: Chills, Fever, Malaise, Night Sweats, Weakness, Fatigue, Weight Loss, Lethargy, Other Pulmonary: Denies: Dyspnea, Cough, Pleuritic Chest Pain, Other Symptoms Cardiovascular: Denies: Chest Pain, Palpitations, Orthopnea, Paroxysmal Noc. Dyspnea, Edema, Lt Headedness, Other Symptoms Gastrointestinal: Denies: Nausea, Vomiting, Abdominal Pain, Diarrhea, Constipation, Melena, Hematochezia, Other Symptoms Musculoskeletal: Denies: Neck Pain, Back Pain, Shoulder Pain, Arm Pain, Hand Pain, Leg Pain, Foot Pain, Joint Pain, Muscle Pain, Spasms, Other Symptoms Neurological: Denies: Weakness, Numbness, Incoordination, Change in speech, Confusion, Seizures, Other Symptoms Objective Physical Examination General Exam: Positive: Alert Eye Exam: Positive: PERRLA, Conjunctiva & lids normal Neck Exam: Positive: Supple Chest Exam: Positive: Wheezing (scattered bilateral wheezing audible) Heart Exam: Positive: Rate Normal, Normal S1, Normal S2 Abdomen Exam: Positive: Normal bowel sounds, Soft, Tenderness Extremity Exam: Positive: Normal pulses Skin Exam: Positive: Nl turgor and temperature Assessment /Plan Problems (1) Altered mental status Status: Resolved Problem Text: Seems to be resolved, but not familiar with her baseline mental status is awake, alert, cooperative, but oriented 0 , Most likely secondary to UTI that patient has presented exactly with the same symptoms on her last admission and had resolved with IV antibiotics Continue monitoring clinically. DC telemetry PT eval and out of bed (2) UTI (urinary tract infection) Status: Acute Problem Text: Most likely, UTI Will start Rocephin 1 g IV every 24 hours Urine cultures pending Oral hydration (3) COPD (chronic obstructive pulmonary disease) Status: Acute Problem Text: Possible mild exacerbation of COPD Agree with current management . We will continue monitoring clinically and adjust meds accordingly (4) CKD (chronic kidney disease), stage III Status: Chronic Problem Text: Stable Plan/VTE VTE Prophylaxis Ordered?: Yes VS, I&O, 24H, Fishbone Vital Signs/I&O Vital Signs Date Time Temp Pulse Resp B/P (MAP) Pulse Ox O2 Delivery O2 Flow Rate FiO2 09/06/19 07:38 98.4 99 24 134/65 (88) 93 Nasal Cannula 2.0 I&O- Last 24 Hours up to 6 AM 09/06/19 06:00 Intake Total 0 ml Output Total 350 ml Balance -350 ml Laboratory Data 24H LABS Laboratory Tests 2 09/05/19 21:41: Immature Granulocyte % (Auto) 1.1, Neutrophils (%) (Auto) 80.6H, Lymphocytes (%) (Auto) 8.0L, Monocytes (%) (Auto) 8.5H, Eosinophils (%) (Auto) 1.3, Basophils (%) (Auto) 0.5, Neutrophils # (Auto) 6.8, Lymphocytes # (Auto) 0.7L, Monocytes # (Auto) 0.7, Eosinophils # (Auto) 0.1, Basophils # (Auto) 0.0, Nucleated Red Blood Cells % (auto) 0.0, Anion Gap 6L, Glomerular Filtration Rate 24.5L, Lactic Acid Level 1.5, Calcium Level 7.9L, Total Creatine Kinase 38, Creatine Kinase MB < 1.0, Creatine Kinase MB Relative Index 2.63, Troponin I 0.10, JB-Jmn-J-Type Natriuretic Peptide 3077H 09/05/19 22:59: POC pH (Misc Panel) 7.371, POC Base Excess (Misc Panel) 2.0, POC Saturated Percent O2 (Misc) 93L, POC pO2 (Misc Panel) 68.0L, POC pCO2 (Misc Panel) 47.2H, POC HCO3 (Misc Panel) 27.5H, POC Total CO2 (Misc Panel) 29.0H 09/06/19 00:46: Urine Color YELLOW, Urine Appearance HAZY, Urine pH 6.0, Urine Specific [place] 1.009, Urine Protein 1+H, Urine Glucose (UA) 1+H, Urine Ketones TRACEH, Urine Blood 3+H, Urine Nitrite NEGATIVE, Urine Bilirubin NEGATIVE, Urine Urobilinogen 0.2, Urine Leukocyte Esterase 2+H, Urine WBC (Auto) 40H, Urine RBC (Auto) 83H, Urine Hyaline Casts (Auto) 0, Urine Bacteria (Auto) NEGATIVE, Urine Squamous Epithelial Cells 0, Urine Sperm (Auto) 09/06/19 06:35: Nucleated Red Blood Cells % (auto) 0.0, Anion Gap 5L, Glomerular Filtration Rate 22.9L, Calcium Level 7.8L CBC/BMP Laboratory Tests 09/05/19 21:41 09/06/19 06:35 Microbiology Microbiology 09/06/19 Blood Culture, Received Pending 09/06/19 Urine Culture, Received Pending 09/05/19 Respiratory Virus Panel (PCR) (GILDARDO) - Final, Complete 09/05/19 Blood Culture, Received Pending GONZALES BANG MD Sep 06, 2019 09:55
[2019-09-06] MEDS ORDERED: SLF 3 ML SYR IV PRN (11:00)
[2019-09-06] MEDS: NS 1,000 ML IV SCH (17:00)
[2019-09-06] MEDS: SLF 3 ML SYR IV SCH ×2 (17:01→21:40)
[2019-09-06] MEDS: traZODone 100 MG TAB PO SCH (21:00)
[2019-09-07] MEDS: IPRATROPIUM 0.5MG/ALBUTEROL 2.5MG INH SOL UD 3ML (DUONEB)(J7620) NEB SCH ×4 (01:47→21:18)
[2019-09-07 04:00] VITALS: BP 136/63
[2019-09-07] MEDS: SLF 3 ML SYR IV SCH ×3 (04:57→21:37)
[2019-09-07] MEDS: NS 1,000 ML IV SCH ×2 (04:57→15:23)
[2019-09-07 06:20] LABS: BASO % 0.1 % (0.0-1.0); HEMATOCRIT 24.2 % (36.0-47.0); HEMOGLOBIN 7.4 g/dl (12.0-15.5); LYMPH # 0.3 10^3/uL (1.5-5.0); LYMPH % 3.7 % (24.0-44.0); MEAN CORPUSCULAR HEMOGLOBIN 30.8 pg (27.0-33.0); MEAN CORPUSCULAR HGB CONC 30.6 g/dl (32.0-36.5); MEAN CORPUSCULAR VOLUME 100.8 fl (80.0-96.0); MONO # 0.5 10^3/uL (0.0-0.8); MONO % 5.7 % (0.0-5.0); NEUTROPHILS # 7.6 10^3/uL (1.5-8.5); NEUTROPHILS % 89.8 % (36.0-66.0); WHITE BLOOD COUNT 8.5 10^3/uL (4.0-10.0)
[2019-09-07 06:28] LABS: PLATELET COUNT, AUTOMATED 98 10^3/uL (150-450)
[2019-09-07 06:38] LABS: ALBUMIN 1.9 GM/DL (3.2-5.2); BILIRUBIN,TOTAL 0.3 MG/DL (0.2-1.0); CALCIUM LEVEL 7.7 MG/DL (8.8-10.2); CREATININE FOR GFR 2.33 MG/DL (0.55-1.30); GLOMERULAR FILTRATION RATE 21.1 (>32); POTASSIUM SERUM 4.6 MEQ/L (3.5-5.1); TOTAL PROTEIN 6.7 GM/DL (6.4-8.2)
[2019-09-07 08:00] VITALS: BP 129/59
[2019-09-07] MEDS: LACTOBACILLUS ACIDOPHILUS CAP (BACID) PO SCH (09:28)
[2019-09-07] MEDS: cefTRIAXone SOD 1 GM in D5W MINI-BAG PLUS 50 ML IV SCH (09:28)
[2019-09-07] MEDS: ESCITALOPRAM OXALATE 10 MG TAB (LEXAPRO) PO SCH (09:28)
[2019-09-07] MEDS: POTASSIUM CHLORIDE 10 MEQ SR TABLET PO SCH (09:28)
[2019-09-07] MEDS: predniSONE 20 MG TAB PO SCH (09:28)
[2019-09-07] MEDS: FERROUS GLUCONATE 324 MG TAB PO SCH ×2 (09:29→21:00)
--- NOTE | 2019-09-07 09:51 | IPNPDOC ---
Subjective Date Seen The patient was seen on 09/07/19. Subjective Chief Complaint/HPI Patient is sleeping comfortably of daughter is at bedside. Patient does not seem any apparent distress General: Reports: ROS Unobtainable Objective Physical Examination Neck Exam: Positive: Supple Chest Exam: Positive: Wheezing (scattered bilateral wheezing audible) Heart Exam: Positive: Rate Normal, Normal S1, Normal S2 Abdomen Exam: Positive: Normal bowel sounds, Soft, Tenderness Extremity Exam: Positive: Normal pulses Skin Exam: Positive: Nl turgor and temperature Assessment /Plan Problems (1) Altered mental status Status: Resolved Problem Text: Seems to be resolved, but not familiar with her baseline mental status is awake, alert, cooperative, but oriented 0 Most likely secondary to UTI that patient has presented exactly with the same symptoms on her last admission and had resolved with IV antibiotics Continue monitoring clinically. DC telemetry PT eval and out of bed Will transfer to medical floor, and possible discharge home with home care on Monday (2) UTI (urinary tract infection) Status: Acute Problem Text: Most likely, UTI Will start Rocephin 1 g IV every 24 hours Urine cultures pending Oral hydration (3) COPD (chronic obstructive pulmonary disease) Status: Acute Problem Text: Possible mild exacerbation of COPD Agree with current management . We will continue monitoring clinically and adjust meds accordingly (4) CKD (chronic kidney disease), stage III Status: Chronic Problem Text: Stable Plan/VTE VTE Prophylaxis Ordered?: Yes VS, I&O, 24H, Fishbone Vital Signs/I&O Vital Signs Date Time Temp Pulse Resp B/P (MAP) Pulse Ox O2 Delivery O2 Flow Rate FiO2 09/07/19 08:00 98.5 85 18 129/59 (82) 97 Nasal Cannula 3.0 I&O- Last 24 Hours up to 6 AM 09/07/19 06:00 Intake Total 975 ml Output Total 0 ml Balance 975 ml Laboratory Data 24H LABS Laboratory Tests 2 09/06/19 12:13: Bedside Glucose (Misc Panel) 229H 09/06/19 17:28: Bedside Glucose (Misc Panel) 188H 09/06/19 20:10: Bedside Glucose (Misc Panel) 133H 09/07/19 05:34: Immature Granulocyte % (Auto) 0.7, Neutrophils (%) (Auto) 89.8H, Lymphocytes (%) (Auto) 3.7L, Monocytes (%) (Auto) 5.7H, Eosinophils (%) (Auto) 0.0, Basophils ( %) (Auto) 0.1, Neutrophils # (Auto) 7.6, Lymphocytes # (Auto) 0.3L, Monocytes # (Auto) 0.5, Eosinophils # (Auto) 0.0, Basophils # (Auto) 0.0, Nucleated Red Blood Cells % (auto) 0.0, Immature Platelet Fraction 1.8, Anion Gap 2L, Glomerular Filtration Rate 21.1L, Calcium Level 7.7L, Magnesium Level 2.0, Total Bilirubin 0.3, Aspartate Amino Transf (AST/SGOT) 12, Alanine Aminotransferase (ALT/SGPT) 8L, Alkaline Phosphatase 77, Total Protein 6.7, Albumin 1.9L, Albumin/Globulin Ratio 0.40L CBC/BMP Laboratory Tests 09/07/19 05:34 Microbiology Microbiology 09/06/19 Blood Culture - Preliminary, Resulted No growth after 24 hours . All specim... 09/06/19 Urine Culture, Received Pending 09/05/19 Respiratory Virus Panel (PCR) (GILDARDO) - Final, Complete 09/05/19 Blood Culture - Preliminary, Resulted No growth after 24 hours . All specim... GONZALES BANG MD Sep 07, 2019 09:51
[2019-09-07 12:00] VITALS: BP 123/62
[2019-09-07 16:00] VITALS: BP 136/74
--- NOTE | 2019-09-07 18:27 | ECGEPIP ---
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
[2019-09-07 20:00] VITALS: BP 131/63
[2019-09-07] MEDS: traZODone 100 MG TAB PO SCH (20:34)
[2019-09-07 23:59] VITALS: BP 121/58
[2019-09-08 02:00] VITALS: BP 115/56
[2019-09-08 06:00] VITALS: BP 115/56
[2019-09-08] MEDS: SLF 3 ML SYR IV SCH ×4 (06:09→20:28)
[2019-09-08 06:30] LABS: HEMATOCRIT 25.2 % (36.0-47.0); HEMOGLOBIN 7.6 g/dl (12.0-15.5); MEAN CORPUSCULAR HEMOGLOBIN 31.3 pg (27.0-33.0); MEAN CORPUSCULAR HGB CONC 30.2 g/dl (32.0-36.5); MEAN CORPUSCULAR VOLUME 103.7 fl (80.0-96.0); PLATELET COUNT, AUTOMATED 135 10^3/uL (150-450); RED BLOOD COUNT 2.43 10^6/uL (4.00-5.40); WHITE BLOOD COUNT 10.6 10^3/uL (4.0-10.0)
[2019-09-08] MEDS: IPRATROPIUM 0.5MG/ALBUTEROL 2.5MG INH SOL UD 3ML (DUONEB)(J7620) NEB SCH ×4 (06:34→20:00)
[2019-09-08 06:57] LABS: CALCIUM LEVEL 8.2 MG/DL (8.8-10.2); CREATININE FOR GFR 2.24 MG/DL (0.55-1.30); GLOMERULAR FILTRATION RATE 22.1 (>32); MAGNESIUM LEVEL 1.9 MG/DL (1.8-2.4); POTASSIUM SERUM 3.8 MEQ/L (3.5-5.1)
[2019-09-08] MEDS: cefTRIAXone SOD 1 GM in D5W MINI-BAG PLUS 50 ML IV SCH (08:09)
[2019-09-08] MEDS: predniSONE 20 MG TAB PO SCH (08:10)
[2019-09-08] MEDS: POTASSIUM CHLORIDE 10 MEQ SR TABLET PO SCH (08:10)
[2019-09-08] MEDS: FERROUS GLUCONATE 324 MG TAB PO SCH ×2 (08:10→20:27)
[2019-09-08] MEDS: LACTOBACILLUS ACIDOPHILUS CAP (BACID) PO SCH (08:10)
[2019-09-08] MEDS: ESCITALOPRAM OXALATE 10 MG TAB (LEXAPRO) PO SCH (08:10)
[2019-09-08] MEDS: NS 1,000 ML IV SCH ×2 (08:11→17:57)
--- NOTE | 2019-09-08 10:42 | IPNPDOC ---
Subjective Date Seen The patient was seen on 09/08/19. Subjective Chief Complaint/HPI Patient is comfortable more alert, oriented started the bedside in no apparent distress General: Denies: ROS Unobtainable, Chills, Night Sweats, Fatigue, Malaise, Normal Appetite, Other Symptoms Constitutional: Denies: Chills, Fever, Malaise, Night Sweats, Weakness, Fatigue, Weight Loss, Lethargy, Other Pulmonary: Denies: Dyspnea, Cough, Pleuritic Chest Pain, Other Symptoms Cardiovascular: Denies: Chest Pain, Palpitations, Orthopnea, Paroxysmal Noc. Dyspnea, Edema, Lt Headedness, Other Symptoms Gastrointestinal: Denies: Nausea, Vomiting, Abdominal Pain, Diarrhea, Constipation, Melena, Hematochezia, Other Symptoms Musculoskeletal: Denies: Neck Pain, Back Pain, Shoulder Pain, Arm Pain, Hand Pain, Leg Pain, Foot Pain, Joint Pain, Muscle Pain, Spasms, Other Symptoms Neurological: Denies: Weakness, Numbness, Incoordination, Change in speech, Confusion, Seizures, Other Symptoms Objective Physical Examination General Exam: Positive: Alert, Cooperative Eye Exam: Positive: PERRLA, Conjunctiva & lids normal Neck Exam: Positive: Supple Chest Exam: Positive: Wheezing (scattered bilateral wheezing audible) Heart Exam: Positive: Rate Normal, Normal S1, Normal S2 Abdomen Exam: Positive: Normal bowel sounds, Soft, Tenderness Extremity Exam: Positive: Normal pulses Skin Exam: Positive: Nl turgor and temperature Assessment /Plan Problems (1) Altered mental status Status: Resolved Problem Text: Seems to be resolved, but not familiar with her baseline mental status is awake, alert, cooperative, but oriented 0 Most likely secondary to UTI that patient has presented exactly with the same symptoms on her last admission and had resolved with IV antibiotics Continue monitoring clinically. DC telemetry Physical therapy in progress DC home in a.m. Status with family. They agree with the discharge plan (2) UTI (urinary tract infection) Status: Acute Problem Text: Most likely, UTI Will start Rocephin 1 g IV every 24 hours Urine cultures pending Oral hydration (3) COPD (chronic obstructive pulmonary disease) Status: Acute Problem Text: Possible mild exacerbation of COPD Agree with current management . We will continue monitoring clinically and adjust meds accordingly (4) CKD (chronic kidney disease), stage III Status: Chronic Problem Text: Stable Plan/VTE VTE Prophylaxis Ordered?: Yes VS, I&O, 24H, Fishbone Vital Signs/I&O Vital Signs Date Time Temp Pulse Resp B/P (MAP) Pulse Ox O2 Delivery O2 Flow Rate FiO2 09/08/19 06:00 99.0 105 19 115/56 (75) 91 09/08/19 02:50 3.0 09/07/19 23:59 Nasal Cannula I&O- Last 24 Hours up to 6 AM 09/08/19 06:00 Intake Total 1070 ml Balance 1070 ml Laboratory Data 24H LABS Laboratory Tests 2 09/07/19 12:25: Bedside Glucose (Misc Panel) 107 09/07/19 17:47: Bedside Glucose (Misc Panel) 173H 09/07/19 20:20: Bedside Glucose (Misc Panel) 227H 09/08/19 05:49: Nucleated Red Blood Cells % (auto) 0.0, Anion Gap 6L, Glomerular Filtration Rate 22.1L, Calcium Level 8.2L, Magnesium Level 1.9 CBC/BMP Laboratory Tests 09/08/19 05:49 Microbiology Microbiology 09/06/19 Blood Culture - Preliminary, Resulted No Growth after 48 hours. All Specime... 09/06/19 Urine Culture - Final, Complete 09/05/19 Respiratory Virus Panel (PCR) ([facility]) - Final, Complete 09/05/19 Blood Culture - Preliminary, Resulted No Growth after 48 hours. All Specime... GONZALES BANG MD Sep 08, 2019 10:42
[2019-09-08 14:00] VITALS: BP 146/88
[2019-09-08] MEDS: traZODone 100 MG TAB PO SCH (20:27)
[2019-09-08 22:00] VITALS: BP 147/98
[2019-09-09] MEDS: IPRATROPIUM 0.5MG/ALBUTEROL 2.5MG INH SOL UD 3ML (DUONEB)(J7620) NEB SCH ×4 (01:58→20:32)
[2019-09-09] MEDS: SLF 3 ML SYR IV SCH ×3 (05:12→21:56)
[2019-09-09 06:00] VITALS: BP 126/65
[2019-09-09 06:12] LABS: MEAN CORPUSCULAR HEMOGLOBIN 30.6 pg (27.0-33.0); MEAN CORPUSCULAR HGB CONC 29.1 g/dl (32.0-36.5); RED BLOOD COUNT 2.19 10^6/uL (4.00-5.40); WHITE BLOOD COUNT 2.7 10^3/uL (4.0-10.0)
[2019-09-09 06:35] LABS: HEMOGLOBIN 6.7 g/dl (12.0-15.5); PLATELET COUNT, AUTOMATED 57 10^3/uL (150-450)
[2019-09-09 06:36] LABS: CALCIUM LEVEL 7.8 MG/DL (8.8-10.2); CREATININE FOR GFR 1.92 MG/DL (0.55-1.30); GLOMERULAR FILTRATION RATE 26.4 (>32); MAGNESIUM LEVEL 1.8 MG/DL (1.8-2.4); POTASSIUM SERUM 4.3 MEQ/L (3.5-5.1)
[2019-09-09] MEDS: predniSONE 10 MG TAB PO SCH (09:25)
[2019-09-09] MEDS: ESCITALOPRAM OXALATE 10 MG TAB (LEXAPRO) PO SCH (09:26)
[2019-09-09] MEDS: LACTOBACILLUS ACIDOPHILUS CAP (BACID) PO SCH (09:26)
[2019-09-09] MEDS: FERROUS GLUCONATE 324 MG TAB PO SCH ×2 (09:26→20:21)
[2019-09-09] MEDS: POTASSIUM CHLORIDE 10 MEQ SR TABLET PO SCH (09:26)
--- NOTE | 2019-09-09 10:50 | IPNPDOC ---
Subjective Date Seen The patient was seen on 09/09/19. Subjective Chief Complaint/HPI Patient is comfortable in no distress. Offers no new complaint at the present time General: Denies: ROS Unobtainable, Chills, Night Sweats, Fatigue, Malaise, Normal Appetite, Other Symptoms Constitutional: Denies: Chills, Fever, Malaise, Night Sweats, Weakness, Fatigue, Weight Loss, Lethargy, Other Cardiovascular: Denies: Chest Pain, Palpitations, Orthopnea, Paroxysmal Noc. Dyspnea, Edema, Lt Headedness, Other Symptoms Gastrointestinal: Denies: Nausea, Vomiting, Abdominal Pain, Diarrhea, Constipation, Melena, Hematochezia, Other Symptoms Genitourinary: Denies: Dysuria, Frequency, Incontinence, Hematuria, Retention, Other Symptoms Musculoskeletal: Denies: Neck Pain, Back Pain, Shoulder Pain, Arm Pain, Hand Pain, Leg Pain, Foot Pain, Joint Pain, Muscle Pain, Spasms, Other Symptoms Neurological: Denies: Weakness, Numbness, Incoordination, Change in speech, Confusion, Seizures, Other Symptoms Objective Physical Examination Neck Exam: Positive: Supple Chest Exam: Positive: Wheezing (scattered bilateral wheezing audible) Heart Exam: Positive: Rate Normal, Normal S1, Normal S2 Abdomen Exam: Positive: Normal bowel sounds, Soft, Tenderness Extremity Exam: Positive: Normal pulses Skin Exam: Positive: Nl turgor and temperature Assessment /Plan Problems (1) Altered mental status Status: Resolved Problem Text: Seems to be resolved, but not familiar with her baseline mental status is awake, alert, cooperative, but oriented 0 Most likely secondary to UTI that patient has presented exactly with the same symptoms on her last admission and had resolved with IV antibiotics Continue monitoring clinically. DC telemetry Physical therapy in progress DC home once once the labs have been corrected, patient's daughter is more than willing to take her patient home and take care of for she has all home care already arranged. (2) UTI (urinary tract infection) Status: Acute Problem Text: Most likely, UTI DC Rocephin Started on Keflex by mouth for 7 days Urine cultures are negative so far (3) COPD (chronic obstructive pulmonary disease) Status: Acute Problem Text: Possible mild exacerbation of COPD Agree with current management, tapering by mouth prednisone We will continue monitoring clinically and adjust meds accordingly (4) CKD (chronic kidney disease), stage III Status: Chronic Problem Text: Stable (5) Pancytopenia Status: Acute Problem Text: Patient's hemoglobin is 6.7, hematocrit 23, platelets of 57,000 and WBC Of 2.7 Plan was to transfuse patient at least 1 unit of PRBC, but patient's daughter who is her HCP refused the transfusion as she is aware this is a chronic problem. Patient has an as per daughter, it corrects by itself and she just wants to repeat her hemoglobin till its corrected, all risks of not transfusion were explained to her and she understands very well. Repeat CBC at 2 PM today and then tomorrow Plan/VTE VTE Prophylaxis Ordered?: Yes VS, I&O, 24H, Fishbone Vital Signs/I&O Vital Signs Date Time Temp Pulse Resp B/P (MAP) Pulse Ox O2 Delivery O2 Flow Rate FiO2 09/09/19 06:00 97.7 74 15 126/65 (85) 94 Nasal Cannula 3.0 I&O- Last 24 Hours up to 6 AM 09/09/19 06:00 Intake Total 2220 ml Balance 2220 ml Laboratory Data 24H LABS Laboratory Tests 2 09/09/19 05:53: Nucleated Red Blood Cells % (auto) 0.0, Immature Platelet Fraction 1.7, Anion Gap 4L, Glomerular Filtration Rate 26.4L, Calcium Level 7.8L, Magnesium Level 1.8 CBC/BMP Laboratory Tests 09/09/19 05:53 Microbiology Microbiology 09/06/19 Blood Culture - Preliminary, Resulted No Growth after 72 hours. All specime... 09/06/19 Urine Culture - Final, Complete 09/05/19 Respiratory Virus Panel (PCR) ([facility]) - Final, Complete 09/05/19 Blood Culture - Preliminary, Resulted No Growth after 72 hours. All specime... GONZALES BANG MD Sep 09, 2019 10:50
[2019-09-09 14:00] VITALS: BP 117/64
[2019-09-09 14:42] LABS: HEMATOCRIT 24.4 % (36.0-47.0); HEMOGLOBIN 7.1 g/dl (12.0-15.5); LYMPH % 3.5 % (24.0-44.0); MEAN CORPUSCULAR HEMOGLOBIN 30.6 pg (27.0-33.0); MEAN CORPUSCULAR HGB CONC 29.1 g/dl (32.0-36.5); MEAN CORPUSCULAR VOLUME 105.2 fl (80.0-96.0); MONO # 0.2 10^3/uL (0.0-0.8); MONO % 3.7 % (0.0-5.0); NEUTROPHILS # 4.7 10^3/uL (1.5-8.5); NEUTROPHILS % 91.4 % (36.0-66.0); RED BLOOD COUNT 2.32 10^6/uL (4.00-5.40); WHITE BLOOD COUNT 5.1 10^3/uL (4.0-10.0)
[2019-09-09 15:02] LABS: LYMPH # 0.2 10^3/uL (1.5-5.0); PLATELET COUNT, AUTOMATED 74 10^3/uL (150-450)
[2019-09-09] MEDS: traZODone 100 MG TAB PO SCH (20:21)
[2019-09-09 22:00] VITALS: BP 129/68
[2019-09-10] MEDS: IPRATROPIUM 0.5MG/ALBUTEROL 2.5MG INH SOL UD 3ML (DUONEB)(J7620) NEB SCH ×4 (01:55→20:09)
[2019-09-10] MEDS: SLF 3 ML SYR IV SCH ×3 (05:18→21:59)
[2019-09-10 06:00] VITALS: BP 128/70
[2019-09-10 07:01] LABS: HEMATOCRIT 22.6 % (36.0-47.0); LYMPH # 0.3 10^3/uL (1.5-5.0); LYMPH % 10.1 % (24.0-44.0); MEAN CORPUSCULAR HEMOGLOBIN 30.7 pg (27.0-33.0); MEAN CORPUSCULAR HGB CONC 29.6 g/dl (32.0-36.5); MEAN CORPUSCULAR VOLUME 103.7 fl (80.0-96.0); MONO # 0.2 10^3/uL (0.0-0.8); MONO % 5.5 % (0.0-5.0); NEUTROPHILS # 2.6 10^3/uL (1.5-8.5); NEUTROPHILS % 83.1 % (36.0-66.0); RED BLOOD COUNT 2.18 10^6/uL (4.00-5.40); WHITE BLOOD COUNT 3.1 10^3/uL (4.0-10.0)
[2019-09-10 07:08] LABS: HEMOGLOBIN 6.7 g/dl (12.0-15.5); PLATELET COUNT, AUTOMATED 71 10^3/uL (150-450)
[2019-09-10 07:38] LABS: ALBUMIN 1.8 GM/DL (3.2-5.2); BILIRUBIN,TOTAL 0.3 MG/DL (0.2-1.0); CALCIUM LEVEL 8.1 MG/DL (8.8-10.2); CREATININE FOR GFR 1.87 MG/DL (0.55-1.30); GLOMERULAR FILTRATION RATE 27.2 (>32); MAGNESIUM LEVEL 1.8 MG/DL (1.8-2.4); POTASSIUM SERUM 4.2 MEQ/L (3.5-5.1)
[2019-09-10] MEDS: predniSONE 10 MG TAB PO SCH (09:44)
[2019-09-10] MEDS: FERROUS GLUCONATE 324 MG TAB PO SCH ×2 (09:44→21:45)
[2019-09-10] MEDS: ESCITALOPRAM OXALATE 10 MG TAB (LEXAPRO) PO SCH (09:44)
[2019-09-10] MEDS: POTASSIUM CHLORIDE 10 MEQ SR TABLET PO SCH (09:44)
[2019-09-10] MEDS: LACTOBACILLUS ACIDOPHILUS CAP (BACID) PO SCH (09:44)
[2019-09-10 14:00] VITALS: BP 127/68
--- NOTE | 2019-09-10 17:21 | IPNPDOC ---
Text Note Date of Service The patient was seen on 09/10/19. NOTE Subjective: Does not offer any complaints today. denies any SOb or cough, denies any abdominal pain any nausea or vomiting or diarrhea. Physical exam: Vitals: As below General: Awake and alert, hard of hearing, laying bed comfortably. HEENT: atraumatic, moist mucous membranes, anicteric eyes. Neck Exam: Positive: Supple, No JVD or thyromegaly Chest Exam: Positive:bilateral basal crackles Heart Exam: Positive: Rate Normal, Normal S1, Normal S2, systolic murmur present Abdomen Exam: Positive: Normal bowel sounds, Soft, Tenderness absent Extremity Exam: Positive: Normal pulses, no edema Skin Exam: Positive: Nl turgor and temperature Labs and radiology : reviewed. Assessment /Plan: Patient is an 84-year-old female who was brought to the emergency department by her daughter for worsening mental status with difficulty breathing. Patient's family had relatives and from [place] and the family went to [facility] for the day. The patient did not accompany the trip however, upon their return she began seeing that she was sick. Patient is apparently altered baseline however, she is currently more altered than baseline. When I saw the patient, the patient's daughter was not in the room so was unable to obtain any further history from the patient Acute on chronic Anemia probably from CKD will check iron profile and vit B12 and folate continue iron. asymptomatic refused blood transfusion. Metabolic encephalopathy on underlying dementia. resolved possibly due to cystitis/UTI received 3 doses of ceftriaxone. UTI urine culture negative recieved 3 doses of ceftriaxone. Dementia continue trazodone and lexapr0 COPD with chronic respiratory failure with hypoxia with mild exacerbation. 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 H/o Hypertension not on any meds H/o Diastolic heart failure H/O Hypothyroidism, Hyperlipidemia not on any meds Diabetes mellitus diet controlled Abdominal aortic aneurysm 4 cm, stable Scoliosis History of CVA Bilateral nephrolithiasis with bilateral atrophic kidneys h/o Lithotripsy, h/o ureteral stent Reflux esophagitis/ Hiatal hernia. no symptoms not on any meds. Patient has previously been in hospice October 2016 and has been removed from that. DVT prophylaxis in place VS,Fishbone, I+O VS, Fishbone, I+O Laboratory Tests 09/10/19 05:58 Vital Signs Date Time Temp Pulse Resp B/P (MAP) Pulse Ox O2 Delivery O2 Flow Rate FiO2 09/10/19 09:00 3.0 09/10/19 06:00 98.0 105 16 128/70 (89) 91 Nasal Cannula I&O- Last 24 Hours up to 6 AM 09/10/19 06:00 Intake Total 770 ml Output Total 0 ml Balance 770 ml GINNY FIGUEROA MD Sep 10, 2019 17:21
[2019-09-10 17:35] LABS: HEMATOCRIT 25.4 % (36.0-47.0); HEMOGLOBIN 7.6 g/dl (12.0-15.5); MEAN CORPUSCULAR HEMOGLOBIN 30.9 pg (27.0-33.0); MEAN CORPUSCULAR HGB CONC 29.9 g/dl (32.0-36.5); MEAN CORPUSCULAR VOLUME 103.3 fl (80.0-96.0); RED BLOOD COUNT 2.46 10^6/uL (4.00-5.40); WHITE BLOOD COUNT 5.4 10^3/uL (4.0-10.0)
[2019-09-10 17:39] LABS: PLATELET COUNT, AUTOMATED 81 10^3/uL (150-450)
[2019-09-10 18:09] LABS: FERRITIN 73 NG/ML (8-252); IRON (FE) 44 UG/DL (50-170); TOTAL IRON BINDING CAPACITY 200 UG/DL (250-450)
[2019-09-10 18:18] LABS: FOLATE 15.5 NG/ML (>5.4); VITAMIN B12 LEVEL > 2000 PG/ML (247-911)
[2019-09-10] MEDS ORDERED: IRON SUCROSE 300 MG in NS 250 ML IV ONE (21:00)
[2019-09-10] MEDS: traZODone 100 MG TAB PO SCH (21:45)
[2019-09-10 22:00] VITALS: BP 131/73
[2019-09-11] MEDS: IPRATROPIUM 0.5MG/ALBUTEROL 2.5MG INH SOL UD 3ML (DUONEB)(J7620) NEB SCH ×3 (01:32→13:53)
[2019-09-11 01:33] VITALS: O2SAT 96
[2019-09-11] MEDS: SLF 3 ML SYR IV SCH ×2 (05:41→14:00)
[2019-09-11 06:00] VITALS: BP 128/73
[2019-09-11 06:16] LABS: HEMATOCRIT 24.2 % (36.0-47.0); HEMOGLOBIN 7.3 g/dl (12.0-15.5); MEAN CORPUSCULAR HEMOGLOBIN 30.7 pg (27.0-33.0); MEAN CORPUSCULAR HGB CONC 30.2 g/dl (32.0-36.5); MEAN CORPUSCULAR VOLUME 101.7 fl (80.0-96.0); PLATELET COUNT, AUTOMATED 78 10^3/uL (150-450); RED BLOOD COUNT 2.38 10^6/uL (4.00-5.40); WHITE BLOOD COUNT 4.4 10^3/uL (4.0-10.0)
[2019-09-11 06:31] LABS: CALCIUM LEVEL 7.9 MG/DL (8.8-10.2); CREATININE FOR GFR 1.72 MG/DL (0.55-1.30); MAGNESIUM LEVEL 1.7 MG/DL (1.8-2.4); POTASSIUM SERUM 4.1 MEQ/L (3.5-5.1)
[2019-09-11] MEDS ORDERED: IRON SUCROSE 200 MG in NS 100 ML IV ONE (07:30)
[2019-09-11] MEDS ORDERED: IRON SUCROSE 200 MG in NS 100 ML OVER 1 HR IV ONE (09:00)
[2019-09-11] MEDS: FERROUS GLUCONATE 324 MG TAB PO SCH (10:23)
[2019-09-11] MEDS: LACTOBACILLUS ACIDOPHILUS CAP (BACID) PO SCH (10:23)
[2019-09-11] MEDS: POTASSIUM CHLORIDE 10 MEQ SR TABLET PO SCH (10:23)
[2019-09-11] MEDS: ESCITALOPRAM OXALATE 10 MG TAB (LEXAPRO) PO SCH (10:23)
[2019-09-11] MEDS: predniSONE 10 MG TAB PO SCH (10:23)
[2019-09-11] MEDS ORDERED: PRED10TA2 PO (11:51)
[2019-09-11] MEDS ORDERED: MAGN400C PO (11:53)
[2019-09-11] MEDS ORDERED: MAGNESIUM OXIDE 400 MG TAB (MAG-OX) PO ONE (13:00)
--- NOTE | 2019-09-11 19:15 | DS.PDOC ---
Discharge Summary General Date of Admission Sep 06, 2019 at 00:26 Date of Discharge 09/11/19 Discharge Summary PROCEDURES PERFORMED DURING STAY: [None]. DISCHARGE DIAGNOSES: Acute metabolic encephalopathy Cystitis. Delirium on the back ground of Dementia due to sleep deprivation Acute on chronic anemia Iron deficiency Anemia of chronic disease CKD stage 4 Chronic thrombocytopenia unknown etiology COPD with Chronic resp failure with exacerbation SECONDARY DIAGNOSIS: Dementia Basal cell cancer of thigh s/p ext beam RT. Patient has previously been in hospice October 2016 and has been removed from that. 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 Chronic nephrolithiasis and cholelithiasis. Bilateral atrophic kidneys 4.0 cm abdominal aortic aneurysm. Reflux esophagitis/ Hiatal hernia. Scoliosis. Osteoarthritis. Diverticulosis. Left arm weakness status post cerebrovascular accident (CVA). COMPLICATIONS/CHIEF COMPLAINT: Acute Resp Failure With Hypoxia, Sirs. HISTORY OF PRESENT ILLNESS: See history and physical HOSPITAL COURSE: Labs and radiology : reviewed. Assessment /Plan: Patient is an 84-year-old female who was brought to the emergency department by her daughter for worsening mental status with difficulty breathing. Patient's family had relatives and from [place] and the family went to [facility] for the day. The patient did not accompany the trip however, upon their return she began seeing that she was sick. Patient is apparently altered baseline however, she is currently more altered than baseline. When I saw the patient, the patient's daughter was not in the room so was unable to obtain any further history from the patient Acute on chronic Anemia probably from CKD will check iron profile and vit B12 and folate continue iron. asymptomatic refused blood transfusion. Metabolic encephalopathy on underlying dementia Vs Delirium on the back ground of Dementia. resolved possibly due to cystitis/UTI Sleep deprivation from abnormal sleep/ wake cycle due to dementia. received 3 doses of ceftriaxone. UTI urine culture negative received 3 doses of ceftriaxone. Dementia continue trazodone and lexapr0 COPD with chronic respiratory failure with hypoxia with mild exacerbation. 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 H/o Hypertension not on any meds H/o Diastolic heart failure H/O Hypothyroidism, Hyperlipidemia not on any meds Diabetes mellitus diet controlled Abdominal aortic aneurysm 4 cm, stable Scoliosis History of CVA Bilateral nephrolithiasis with bilateral atrophic kidneys h/o Lithotripsy, h/o ureteral stent Reflux esophagitis/ Hiatal hernia. no symptoms not on any meds. Patient has previously been in hospice October 2016 and has been removed from that. DISCHARGE MEDICATIONS: Please see below. ALLERGIES: Please see below. PHYSICAL EXAMINATION ON DISCHARGE: VITAL SIGNS: Please see below. General: Awake and alert, hard of hearing, laying bed comfortably. HEENT: atraumatic, moist mucous membranes, anicteric eyes. Neck Exam: Positive: Supple, No JVD or thyromegaly Chest Exam: Positive:bilateral basal crackles Heart Exam: Positive: Rate Normal, Normal S1, Normal S2, systolic murmur present Abdomen Exam: Positive: Normal bowel sounds, Soft, Tenderness absent Extremity Exam: Positive: Normal pulses, no edema Skin Exam: Positive: Nl turgor and temperature LABORATORY DATA: Please see below. ACTIVITY: [As tolerated]. DIET: as tolerated DISCHARGE PLAN: Home DISPOSITION: . DISCHARGE INSTRUCTION: PMD in 2 weeks DISCHARGE CONDITION: [Stable]. TIME SPENT ON DISCHARGE: 35 minutes. Vital Signs/I&Os Vital Signs Date Time Temp Pulse Resp B/P (MAP) Pulse Ox O2 Delivery O2 Flow Rate FiO2 09/11/19 06:00 97.0 90 17 128/73 (91) 94 Nasal Cannula 3.0 I&O- Last 24 Hours up to 6 AM 09/11/19 06:00 Intake Total 1715 ml Balance 1715 ml Laboratory Data Labs 24H Laboratory Tests 2 09/10/19 17:19: Nucleated Red Blood Cells % (auto) 0.0, Iron Level 44L, Total Iron Binding Capacity 200L, Transferrin % Saturation 22.0, Ferritin 73, Vitamin B12 Level > 2000H, Folate 15.5 09/10/19 20:09: Bedside Glucose (Misc Panel) 247H 09/11/19 05:58: Nucleated Red Blood Cells % (auto) 0.0, Anion Gap 5L, Glomerular Filtration Rate 30.0L, Calcium Level 7.9L, Magnesium Level 1.7L 09/11/19 11:31: Bedside Glucose (Misc Panel) 90 CBC/BMP Laboratory Tests 09/10/19 17:19 09/11/19 05:58 FSBS Laboratory Tests Test 09/10/19 20:09 09/11/19 11:31 Range/Units Bedside Glucose (Misc Panel) 247 90 83-110 MG/DL Microbiology Microbiology 09/10/19 Stool Occult Blood ([facility]) - Final, Complete 09/06/19 Blood Culture - Final, Complete NO GROWTH AFTER 5 DAYS 09/06/19 Urine Culture - Final, Complete 09/05/19 Respiratory Virus Panel (PCR) ([facility]) - Final, Complete 09/05/19 Blood Culture - Final, Complete NO GROWTH AFTER 5 DAYS Discharge Medications Scheduled Albuterol Sulfate (Albuterol Sulfate) 0.63 Mg/3 Ml Neb, 0.63 MG INH TID, (Reported) Cyanocobalamin (Vitamin B-12) (Vitamin B-12) 1,000 Mcg Tablet, 1,000 MCG PO DAILY, (Reported) Escitalopram Oxalate (Lexapro) 20 Mg Tab, 10 MG PO DAILY, (Reported) Ferrous Gluconate (Ferrous Gluconate) 324 Mg Tablet, 324 MG PO BID, (Reported) Folic Acid (Folic Acid) 0.8 Mg Capsule, 800 MCG PO DAILY, (Reported) Magnesium Oxide (Magnesium) 400 Mg Capsule, 400 MG PO DAILY for constipation Potassium Chloride (Klor-Con M10) 10 Meq Tabcr, 10 MEQ PO DAILY, (Reported) Prednisone (Prednisone) 10 Mg Tablet, 10 MG PO TAPER 2 tabs daily x 3 days, then 1 tab daily x 3 days and stop Trazodone HCl (Trazodone HCl) 50 Mg Tab, 100 MG PO QHS, (Reported) Allergies Coded Allergies: heparin (Verified Allergy, Intermediate, patient has elevated heparin antibodies, 10/15/18) baclofen (Verified Adverse Reaction, Intermediate, EXTREME CONFUSION, 10/15/18) ciprofloxacin (Verified Adverse Reaction, Intermediate, AMS, 10/15/18) GINNY FIGUEROA MD Sep 11, 2019 12:04
[2019-09-11] MEDS ORDERED: MAGNESIUM OXIDE 400 MG TAB (MAG-OX) PO SCH (21:00)
== END 2019-09-11 16:01 | disposition home or self-care (01) | DRG 689 ==
LOC: M ED 19:34 → M ED INP 09-06 00:26 → M PCU 09-06 05:35 → M MSPAV 09-08 01:41
PROVIDERS: ADMIT Internal Medicine; ATTEND Internal Medicine Nephrology
DX: N30.90 Cystitis, unspecified without hematuria (principal); G93.41 Metabolic encephalopathy; J96.11 Chronic respiratory failure with hypoxia; I50.32 Chronic diastolic (congestive) heart failure; R65.10 Systemic inflammatory response syndrome (SIRS) of non-infectious origin without acute organ dysfunction; I13.0 Hypertensive heart and chronic kidney disease with heart failure and stage 1 through stage 4 chronic kidney disease, or unspecified chronic kidney disease; J44.1 Chronic obstructive pulmonary disease with (acute) exacerbation; D61.818 Other pancytopenia; R41.82 Altered mental status, unspecified; N18.3 Chronic kidney disease, stage 3 (moderate); D63.1 Anemia in chronic kidney disease; D69.6 Thrombocytopenia, unspecified; E55.9 Vitamin D deficiency, unspecified; E78.5 Hyperlipidemia, unspecified; E03.9 Hypothyroidism, unspecified; E11.22 Type 2 diabetes mellitus with diabetic chronic kidney disease; M41.9 Scoliosis, unspecified; Z86.73 Personal history of transient ischemic attack (TIA), and cerebral infarction without residual deficits; Z86.19 Personal history of other infectious and parasitic diseases; Z96.649 Presence of unspecified artificial hip joint; Z96.0 Presence of urogenital implants; R00.0 Tachycardia, unspecified; Z66 Do not resuscitate; Z79.899 Other long term (current) drug therapy; Z79.51 Long term (current) use of inhaled steroids; Z88.1 Allergy status to other antibiotic agents; Z88.8 Allergy status to other drugs, medicaments and biological substances; I71.4 Abdominal aortic aneurysm, without rupture; Z85.828 Personal history of other malignant neoplasm of skin; Z92.3 Personal history of irradiation

== ENCOUNTER → 2019-12-26 | Outpatient (REF) | payer MEDICARE, MEDICAID ==
[~2019-12-26] MED LIST changes: +CYAN100050 PO; +FERR325T16 PO; +FOLI800C PO; +MAGN400C PO; +PRED10TA2 PO
[2019-12-26 18:07] LABS: IRON (FE) 30 UG/DL (50-170); PERCENT SATURATION 11.5 % (13.2-45.0); TOTAL IRON BINDING CAPACITY 261 UG/DL (250-450)
[2019-12-27 09:28] LABS: FOLATE > 24.0 NG/ML
== END ==
LOC: M LAB REF 16:17
PROVIDERS: ATTEND Internal Medicine
DX: D64.9 Anemia, unspecified (principal)

== ENCOUNTER 2019-12-31 11:45 | Outpatient (CLI) | payer MEDICARE, MEDICAID ==
[~2019-12-31] VITALS: Ht 142.2 cm; Wt 36.7 kg
[2019-12-31 12:27] VITALS: BP 138/69
[2019-12-31] MEDS ORDERED: IRON SUCROSE 25 MG in NS 25 ML IV ONE (12:30)
[2019-12-31] MEDS ORDERED: IRON SUCROSE 475 MG in NS 250 ML IV ONE (12:30)
[2019-12-31 13:43] VITALS: BP 136/85
[2019-12-31 14:56] VITALS: BP 135/88
[2019-12-31 16:30] VITALS: BP 159/68
== END 2019-12-31 16:30 | disposition home or self-care (01) ==
LOC: M INFU 11:45
PROVIDERS: ATTEND Internal Medicine
DX: D50.9 Iron deficiency anemia, unspecified (principal); Z88.8 Allergy status to other drugs, medicaments and biological substances
CPT/HCPCS: 96365; 96366; 96376; J1756